=== PATIENT | female | born 1965 | race Caucasian/White ===

== ENCOUNTER → 2016-11-15 | Outpatient (CLI) | payer OTHER ==
[~2016-11-15] MED LIST: AMOX875T PO; ANAS1TAB6 PO; CALC500C70 PO; CHOL1000 PO; EVENCAP6 PO; HRBLS PO; HYDR-5688 PO; LIVER COMPLEX PO; NAPR1TAB9 PO; OXYC1TAB3 PO; PRLSR20 PO; TURKEY TAIL PO; TURM1CAP4 PO; [UNRECOGNIZED DRUG - OTHER] PO; tumeric PO; turkey tail PO
[2016-11-15 15:04] VITALS: BP 140/92; PULSE 78; TEMP 36.8; O2SAT 99
--- NOTE | 2016-11-15 16:17 | Radiation Oncology Follow-Up ---
Radiation Oncology Follow-Up Date of Visit Nov 15, 2016. Reason For Visit Called and requested an appointment today due to increased discomfort of her breast. Radiation Completion Date 09-07-16 Diagnosis (1) Breast cancer Status: Resolved Onset Date: 05/15/2016 Histology Subtype: ductal Stage: l (A) Permanent Comment: Abnormal right breast mammogram Status post ultrasound-guided needle biopsy 05/15/2016 revealing 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, progesterone receptor positive, HER-2/andre negative Status post needle localization lumpectomy and sentinel lymph node biopsy Stage pT1c pN0M0 Status post completion of radiation therapy 09/07/2016 received 5130 cGy utilizing hypo-fractionation. Last Edited By: Lindsay Goodrich on Sep 16, 2016 13:11 History of Present Illness Ms. Ramsey is a 51-year-old female without a family history of breast cancer. He has been followed with screening mammograms. At 2000 she underwent an aspiration of a subareolar nodule at the 10 to 11 o'clock position of the left breast revealing benign breast tissue and fragmented cyst. Specimen # [id number]. On 06/02/2015 she underwent a stereotactic biopsy of the left breast for breast calcifications to rule out fibrocystic changes. This revealed fibrocystic change with usual ductal hyperplasia. Case: [id number]. On 2015 patient underwent bilateral digital screening mammogram. This showed a focal area of possible architectural distortion in the right lateral breast at approximately 9 o'clock position seen until most synthesis images only. Spot compression total synthesis views and possible breast ultrasound were recommended for further evaluation. On 05/09/2016 patient underwent a unilateral right digital diagnostic mammogram and targeted right breast ultrasound. This showed persistent local architectural distortion in the upper outer anterior right breast with an ill-defined hypoechoic 7 mm mass seen in the 9:00 right breast on ultrasound. This was indeterminate but warranted further evaluation with an ultrasound-guided needle biopsy. It was given a BI- RADS Category 4B. On 05/15/2016 the patient underwent an ultrasound-guided biopsy of the right breast lesion. This revealed an infiltrative ductal adenocarcinoma grade 1 with no lymphovascular or perineural invasion. Estrogen receptors were positive, progesterone receptors were positive and HER-2/andre was negative by immunohistochemistry and negative by amplification by FISH. Case: [id number]. Patient was seen by Dr. Liudmila Syed who discussed treatment options with the patient. Bilateral breast MRIs were recommended and performed on 05/28/2016. In the left breast no suspicious masses or iyv-virf-zxps enhancement was seen. In the right breast at the anterior depth at 7 o'clock position was an irregular shaped and spiculated marginated mass measuring 1.0 x 0.7 x 0.9 cm. This corresponded to the biopsy-proven infiltrating ductal carcinoma. No other masslike or cpb-krte-guma enhancement was seen. On 06/27/2016 the patient underwent a right breast partial mastectomy and sentinel node biopsy. The sentinel node was negative for metastatic disease. 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 The tumor measured 1.3 x 1.2 x 1.0 cm. There was evidence of extensive intraductal component. The margins were evaluated. The margins for the invasive carcinoma was negative with the closest margin posterior margin at 4 mm. The margins for the DCIS were also negative with the closest margin being the anterior margin at 1 mm. The final stage was therefore a pT1c pN0(sn-), ER positive, MI positive, HER-2/andre negative. Patient is been seen by Dr. Misha Rodriguez for evaluation of the role of adjuvant therapy. He discussed the role of adjuvant hormonal therapy with the patient. He recommended external beam radiation followed by 5 years of tamoxifen. He did note that the Prosigna assay was unable to be performed. It is for this reason that we were asked to see the patient in referral to discuss with her the role of adjuvant radiation. She completed radiation therapy 09/07/2016. She received 5130 cGy utilizing hypo-fractionation. Interim History She had been seen in follow-up 10/11/2016. She had been doing well. Discomfort of the breast had resolved. 2 days ago she returned from a vacation in [place]. After a long flight she noted some swelling of her breast. She is now noticed increasing discomfort especially in the central portion of the breast and lower part of the breast. The breast feels heavy and firm in the lower quadrants. She has not noticed increased warmth. She's had no fever or chills. She has no swelling of her arm. Due to discomfort she called today and she was asked to come in for an evaluation. She is not tried any over-the- counter medications. Allergies Coded Allergies: Adhesives (Verified Allergy, Mild, Tape blisters, 07/24/16) Codeine (Verified Allergy, Mild, nausea/vomiting, 07/24/16) Home Medications Scheduled [tumeric], 1 CAP PO DAILY [turkey tail], 2 TAB PO DAILY Scheduled PRN Naproxen (Aleve), 220 MG PO Q12 PRN for Pain Review of Systems Gastrointestinal: Symptoms: WNL Oral: Symptoms: No Problems Respiratory: Symptoms: WNL Urinary: Symptoms: WNL Skin: Symptoms: No Problems Breast: Right Upper Arm Measurement: 27.5 Right Mid Arm Measurement: 23.0 Right Wrist Measurement: 15.5 Left Upper Arm Measurement: 27.0 Left Mid Arm Measurement: 22.5 Left Wrist Measurement: 15.5 Arm Dominence: Right Patient Cosmetic Evaluation: Good Staff Cosmetic Evalaluation: Good Physical Exam Vital Signs Date Time Temp Pulse Resp B/P Pulse Ox O2 Delivery O2 Flow Rate FiO2 11/15/16 15:04 36.8 78 18 140/92 99 Pain: Pain Onset: 2 days ago Side: Right Patient Pain Scale: 0 - 10 Initial Pain Intensity: 2.0 Pain Description: Pressure, Tightness General Appearance: no apparent distress Neck: no adenopathy, thyroid normal Respiratory/Chest: lungs clear, no respiratory distress, no accessory muscle use Breast: Breast examination reveals very slight erythema and central portion of the breast. There is edema in the lower quadrants. There is tenderness to palpation. There is no increased warmth. There are no fluctuant masses. There is no axillary adenopathy. There are no skin retractions or nipple changes. She is a nipple ring in place. Cardiovascular: regular rate, rhythm, no gallop, no murmur Abdomen: non tender Extremities: no pedal edema Neurologic/Psychiatric: no motor/sensory deficits, alert, normal mood/affect Skin: warm/dry Lymphatic: no adenopathy Assessment & Plan Plan: I reviewed with her that this is edema of the breast. I've asked her to take Aleve 1 pill twice a day for one week. Once there is improvement in the discomfort I would like for her to follow-up with the lymphedema clinic for evaluation and treatment of the edema in her breast. She can also apply cool compresses. She was in agreement with the above plan of treatment. She will otherwise keep her regularly scheduled appointment. She can call if she has any questions or concerns we would be happy to see her again. Total Time In Follow-Up I spent 15 minutes speaking to the patient and performing examination. I spent 15 minutes reviewing information in completing this note. Copy To Liudmila ySed MD; Balbir Soliz M.D.; Vi Soliz M.D. Problem Qualifiers (1) Breast cancer: Breast location: central portion of breast Patient gender: female Laterality : right Qualified Codes: C50.111 - Malignant neoplasm of central portion of right female breast
== END | disposition home or self-care (01) ==
LOC: C.ONC 14:34
PROVIDERS: ATTEND Radiology Radiation Oncology
DX: Z08 Encounter for follow-up examination after completed treatment for malignant neoplasm (principal); Z92.3 Personal history of irradiation; Z85.3 Personal history of malignant neoplasm of breast

== ENCOUNTER → 2017-01-16 | Outpatient (CLI) | payer OTHER ==
[~2017-01-16] MED LIST changes: -CALC500C70 PO
--- NOTE | 2017-01-16 15:02 | MAMMOGRAPHY REPORT ---
UNILATERAL RIGHT DIGITAL DIAGNOSTIC MAMMOGRAM TOMOSYNTHESIS WITH CAD: 01/16/2017 CLINICAL HISTORY: 51-year-old woman with a personal history of right breast cancer status post lumpe ctomy and radiation. She presents for first follow-up in the right breast after treatment to [facility]. TECHNIQUE: Right CC and MLO 2-D digital and tomosynthesis images, spot magnification right CC and ML views were obtained. Current study was also evaluated with a Computer Aided Detection (CAD) system . COMPARISON: Comparison is made to exams dated: 05/15/2016 mammogram, 05/15/2016 ultrasound biopsy, mammogram, and 05/04/2016 mammogram - [facility]. BREAST COMPOSITION: There are scattered areas of fibroglandular density in the right breast. FINDINGS: There is mild diffuse skin thickening and trabecular edema of the right breast, likely rel ated to recent treatment. There is expected architectural distortion in the 9:00 middle to anterior breast at the site of prior lumpectomy. No new suspicious mass, unexpected architectural distortio n or suspicious macrocalcifications are identified. IMPRESSION: ACR-BI-RADS CATEGORY 3: PROBABLY BENIGN Expected post treatment changes in the right breast, without definite mammographic evidence of malig ricardo. Recommend repeat assessment of the right breast in 6 months. Annual left mammography is als o due at that time. These results and recommendations were discussed with the patient at the time of the examination. Sh e tentatively scheduled a follow-up appointment prior to leaving our department. Approximately 10% of breast cancers are not detected with mammography. A negative mammographic repor t should not delay biopsy if a clinically suggestive mass is present. Codi Valente M.D. ay/:01/16/2017 14:45:11 Trash Collector: Isabela NAVA(R)(M), [facility] letter sent: Personal History 3 BI-RADS Code: ACR-BI-RADS Category 3: Probably Benign
== END | disposition home or self-care (01) ==
LOC: C.MAMM 13:44
PROVIDERS: ATTEND Radiology Radiation Oncology
DX: Z85.3 Personal history of malignant neoplasm of breast (principal); Z08 Encounter for follow-up examination after completed treatment for malignant neoplasm

== ENCOUNTER 2017-03-03 08:46 | Emergency (ER) | payer OTHER ==
[~2017-03-03] VITALS: Ht 167.6 cm; Wt 79.9 kg
[~2017-03-03 08:46] MED LIST changes: -AMOX875T PO; -ANAS1TAB6 PO; -CHOL1000 PO; -EVENCAP6 PO; -HRBLS PO; -HYDR-5688 PO; -LIVER COMPLEX PO; -OXYC1TAB3 PO; -PRLSR20 PO; -TURKEY TAIL PO; -TURM1CAP4 PO; -[UNRECOGNIZED DRUG - OTHER] PO
[2017-03-03 08:47] VITALS: TEMP 37.1; Ht 167.6 cm; Wt 79.9 kg
[2017-03-03] MEDS ORDERED: HRBLS PO (09:25)
[2017-03-03] MEDS ORDERED: TURM1CAP4 PO (09:25)
[2017-03-03] MEDS ORDERED: ANAS1TAB6 PO (09:25)
[2017-03-03] MEDS ORDERED: SODIUM CHLORIDE 0.9% 1000ML 1,000 ML IV STA (09:28)
[2017-03-03] MEDS ORDERED: MoRPHine SULFATE 4 MG/ML 1 ML CARP\\VIAL IV STA ×2 (09:28→10:42)
[2017-03-03] MEDS ORDERED: ONDANSETRON INJ 2 MG/ML 2 ML VIAL IV STA (09:28)
[2017-03-03] MEDS ORDERED: OPTIRAY 320 IV PRN (09:45)
[2017-03-03 09:52] LABS: BASO % 0.3 %; BASO ABS # 0.03 K/uL (0-0.2); COMPLETE YES; EOS % 0.7 %; IG% 0.1 %; LYMPH % 14.9 %; LYMPH ABS # 1.34 K/uL (1.2-3.4); MEAN CELL VOLUME 95.8 fL (80-100); MEAN CORPUSCULAR HEMOGLOBIN 32.4 pg (25-34); MEAN CORPUSCULAR HGB CONC 33.8 g/dl (32-36); MEAN PLATELET VOLUME 10.9 fL (7.4-10.4); MONO % 9.3 %; NEUT % 74.7 %; PLATELET COUNT 270 K/uL (130-400); RED BLOOD COUNT 4.07 M/uL (4.2-5.4)
[2017-03-03 09:53] LABS: URINE APPEARANCE CLEAR (CLEAR); URINE BILIRUBIN NEG (NEG); URINE COLOR YELLOW; URINE NITRITE NEG (NEG); URINE PH 7.5 (4.5-7.5); URINE SPECIFIC GRAVITY 1.007 (1.000-1.030); UROBILINOGEN NEG (NEG); ZZUR CULT IF INDIC CLEAN CATCH NO
[2017-03-03 09:54] LABS: MANUAL MICROSCOPIC REQUIRED? NO; REVIEW REQ? NO
[2017-03-03 09:58] LABS: PREG INTERNAL NEGATIVE QC NEG CLEAR BACKGROUND; PREG INTERNAL POSITIVE QC POS CONTROL LINE
[2017-03-03 10:11] LABS: BUN/CREATININE RATIO 12.3 (10-20); CALCIUM 8.8 mg/dl (8.5-10.1); CREATININE 0.62 mg/dl (0.60-1.20); POTASSIUM 3.8 mmol/L (3.5-5.1)
--- NOTE | 2017-03-03 12:43 | DIAGNOSTIC IMAGING REPORT ---
CT ABD/PELVIS IV AND ORAL CONT CLINICAL HISTORY: Suprapubic abdominal pain, hx diverticulitis COMPARISON STUDY: 07/11/2016 TECHNIQUE: Following the IV administration of 119 mL of Optiray-320, CT scan of the abdomen and pelvis was performed from the lung bases to the proximal femurs. Images are reviewed in the axial, sagittal, and coronal planes. IV contrast was administered without complication. CT DOSE: 586.73 mGy.cm FINDINGS: Lower chest: There are mild dependent atelectatic changes. There is a hiatal hernia Liver: There is mild hepatic steatosis. There are no focal hepatic masses. The portal vein appears patent. Gallbladder: Unremarkable. Spleen: Normal in size and attenuation. Pancreas: Unremarkable. Adrenal glands: Unremarkable. Kidneys: There is symmetric renal cortical enhancement. The kidneys are normal in size without hydronephrosis. Bowel: There are no transition zones indicate bowel obstruction. The appendix appears normal. There is sigmoid wall thickening with infiltration the perisigmoid fat. The findings are indicative of acute diverticulitis. Minor secondary inflammatory changes of the bladder are suspected. Peritoneum: No free air is visualized. There is low volume pelvic ascites. Vasculature: The abdominal aorta is normal in course and caliber. Adenopathy: None. Pelvic viscera: There is dilatation of the lower uterine segment/cervical canal. There is a suspected nabothian gland cyst.. Skeletal structures: No destructive osseous lesions are seen. IMPRESSION: 1. Acute sigmoid diverticulitis 2. Dilatation of the lower uterine segment/cervical canal. 3. Normal appendix 4. No evidence of bowel obstruction. No evidence of free air 5. Small amount of free fluid in the pelvis likely reactive Electronically signed by: Michi Nation M.D. 03/03/2017 12:41 PM Dictated Date/Time: 03/03/2017 12:34 PM
[2017-03-03] MEDS ORDERED: AMOX875T PO (13:06)
[2017-03-03] MEDS ORDERED: OXYC1TAB3 PO (13:06)
--- NOTE | 2017-03-03 13:09 | EMERGENCY ROOM VISIT NOTE ---
History First contact with patient: 08:52 Chief Complaint: GI ASSESSMENT Stated Complaint: DIVERTICULITIS Nursing Triage Summary: Per pt lower abd pain x2 days, nausea. Hx of diverticulitis History of Present Illness The patient is a 51 year old female who presents to the Emergency Room via private vehicle with complaints of "diverticulitis". The patient states that she has a history of diverticulitis with abscess, and is here with similar symptoms. She states that 2 days ago, while performing normal activities she developed inferior quadrant abdominal pain. She notes she did not take anything for the pain, and rates it as a 4/10. She notes that she is menopausal as well. There has been associated chills, but no fevers. She denies any vaginal bleeding but does note a clear scant vaginal discharge. She denies any sexual activity. She denies any chest pain, shortness of breath, a burning when she urinates or blood in the stool or hematuria. Review of Systems A complete 10-point Review of Systems was discussed with the patient, with pertinent positives and negatives listed in the History of Present Illness. All remaining Review of Systems questions can be considered negative unless otherwise specified. Past Medical/Surgical History Medical Problems: (1) blood clot after surgery (2) Breast cancer (3) CARDIAC MURMURS NEC (4) Migraine (5) Radial nerve palsy (6) Shortness of breath Family History Cancer FH: heart disease Hypertension Social History Smoking Status: Never Smoker Alcohol Use: occasionally Drug Use: none Marital Status: in relationship Housing Status: lives with family Occupation Status: employed Current/Historical Medications Scheduled Amoxicillin & Pot Clavulanate (Augmentin 875-125 mg), 1 TAB PO BID Anastrozole (Anastrozole), 1 TAB PO DAILY Herbals (Herbals), 0 PO BID Scheduled PRN Oxycodone Ir (Roxicodone Ir), 1-2 TAB PO Q4H PRN for Pain Miscellaneous Medications Turmeric (Curcuma Longa) (Turmeric), Unknown Dose Allergies Coded Allergies: Adhesives (Verified Allergy, Mild, Tape blisters, 03/03/17) Codeine (Verified Allergy, Mild, nausea/vomiting, 03/03/17) Physical Exam Vital Signs Date Time Temp Pulse Resp B/P Pulse Ox O2 Delivery O2 Flow Rate FiO2 03/03/17 13:30 73 16 136/90 99 Room Air 03/03/17 12:30 73 16 135/95 100 03/03/17 10:55 84 16 124/99 99 03/03/17 08:47 37.1 110 18 145/94 97 Room Air Pain Rating (0-10): 4.0 Physical Exam VITAL SIGNS - Vital signs and nursing notes were reviewed. Patient is afebrile , hypertensive, tachycardic at a rate of 110 bpm, and is saturating well on room air at 97%. GENERAL -51-year-old female appearing her stated age who is in no acute distress. Communicates well with provider and answers questions appropriately. SKIN - Without rashes. No petechial rashes. HEAD - NC/AT. EYES - PERRL with EOMI bilaterally. Sclera anicteric. Palpebral conjunctiva pink and moist with no injection noted. EARS - No deformities of external structures noted on gross examination bilaterally. NOSE - Midline and without cyanosis. No epistaxis or purulent drainage noted. MOUTH/OROPHARYNX - Without perioral cyanosis. LUNGS - Chest wall symmetric without accessory muscle use, intercostals retractions, or central cyanosis. Normal vesicular breath sounds CTA B/L. No wheezes, rales, or rhonchi appreciated. CARDIAC - RRR with S1/S2. No murmur, rubs, or gallops appreciated. ABDOMEN - Abdominal contour without pulsations or visible masses. BS normoactive all four quadrants. There is tenderness in the suprapubic region, and a slight palpable mobile region suspected to be colon. No true palpable masses, hepatosplenomegaly, or ascites noted. EXTREMITIES - No clubbing or peripheral cyanosis. No pretibial edema present. + 5/5 strength noted in UE/LE bilaterally. Medical Decision & Procedures ER Provider Diagnostic Interpretation: CT ABD/PELVIS IV AND ORAL CONT CLINICAL HISTORY: Suprapubic abdominal pain, hx diverticulitis COMPARISON STUDY: 07/11/2016 TECHNIQUE: Following the IV administration of 119 mL of Optiray-320, CT scan of the abdomen and pelvis was performed from the lung bases to the proximal femurs. Images are reviewed in the axial, sagittal, and coronal planes. IV contrast was administered without complication. CT DOSE: 586.73 mGy.cm FINDINGS: Lower chest: There are mild dependent atelectatic changes. There is a hiatal hernia Liver: There is mild hepatic steatosis. There are no focal hepatic masses. The portal vein appears patent. Gallbladder: Unremarkable. Spleen: Normal in size and attenuation. Pancreas: Unremarkable. Adrenal glands: Unremarkable. Kidneys: There is symmetric renal cortical enhancement. The kidneys are normal in size without hydronephrosis. Bowel: There are no transition zones indicate bowel obstruction. The appendix appears normal. There is sigmoid wall thickening with infiltration the perisigmoid fat. The findings are indicative of acute diverticulitis. Minor secondary inflammatory changes of the bladder are suspected. Peritoneum: No free air is visualized. There is low volume pelvic ascites. Vasculature: The abdominal aorta is normal in course and caliber. Adenopathy: None. Pelvic viscera: There is dilatation of the lower uterine segment/cervical canal. There is a suspected nabothian gland cyst.. Skeletal structures: No destructive osseous lesions are seen. IMPRESSION: 1. Acute sigmoid diverticulitis 2. Dilatation of the lower uterine segment/cervical canal. 3. Normal appendix 4. No evidence of bowel obstruction. No evidence of free air 5. Small amount of free fluid in the pelvis likely reactive Laboratory Results 03/03/17 09:40 Red Blood Count 4.07, Mean Corpuscular Volume 95.8, Mean Corpuscular Hemoglobin 32.4, Mean Corpuscular Hemoglobin Concent 33.8, Mean Platelet Volume 10.9, Neutrophils (%) (Auto) 74.7, Lymphocytes (%) (Auto) 14.9, Monocytes (%) (Auto) 9.3, Eosinophils (%) (Auto) 0.7, Basophils (%) (Auto) 0.3, Neutrophils # (Auto) 6.72, Lymphocytes # (Auto) 1.34, Monocytes # (Auto) 0.84, Eosinophils # (Auto) 0.06, Basophils # (Auto) 0.03 03/03/17 09:40 Test 03/03/17 09:08 03/03/17 09:40 Urine Color YELLOW Urine Appearance CLEAR (CLEAR) Urine pH 7.5 (4.5-7.5) Urine Specific [place] 1.007 (1.000-1.030) Urine Protein NEG (NEG) Urine Glucose (UA) NEG (NEG) Urine Ketones NEG (NEG) Urine Occult Blood NEG (NEG) Urine Nitrite NEG (NEG) Urine Bilirubin NEG (NEG) Urine Urobilinogen NEG (NEG) Urine Leukocyte Esterase NEG (NEG) Urine Test NEG (NEG) White Blood Count 9.00 K/uL (4.8-10.8) Red Blood Count 4.07 M/uL (4.2-5.4) Hemoglobin 13.2 g/dL (12.0-16.0) Hematocrit 39.0 % (37-47) Mean Corpuscular Volume 95.8 fL (80-100) Mean Corpuscular Hemoglobin 32.4 pg (25-34) Mean Corpuscular Hemoglobin Concent 33.8 g/dl (32-36) Platelet Count 270 K/uL (130-400) Mean Platelet Volume 10.9 fL (7.4-10.4) Neutrophils (%) (Auto) 74.7 % Lymphocytes (%) (Auto) 14.9 % Monocytes (%) (Auto) 9.3 % Eosinophils (%) (Auto) 0.7 % Basophils (%) (Auto) 0.3 % Neutrophils # (Auto) 6.72 K/uL (1.4-6.5) Lymphocytes # (Auto) 1.34 K/uL (1.2-3.4) Monocytes # (Auto) 0.84 K/uL (0.11-0.59) Eosinophils # (Auto) 0.06 K/uL (0-0.5) Basophils # (Auto) 0.03 K/uL (0-0.2) RDW Standard Deviation 47.5 fL (36.4-46.3) RDW Coefficient of Variation 13.6 % (11.5-14.5) Immature Granulocyte % (Auto) 0.1 % Immature Granulocyte # (Auto) 0.01 K/uL (0.00-0.02) Anion Gap 8.0 mmol/L (3-11) Est Creatinine Clear Calc Drug Dose 111.8 ml/min Estimated GFR () 119.3 Estimated GFR (Non- 102.9 BUN/Creatinine Ratio 12.3 (10-20) Calcium Level 8.8 mg/dl (8.5-10.1) Total Bilirubin 0.5 mg/dl (0.2-1) Aspartate Amino Transf (AST/SGOT) 12 U/L (15-37) Alanine Aminotransferase (ALT/SGPT) 20 U/L (12-78) Alkaline Phosphatase 73 U/L (45-117) Total Protein 6.8 gm/dl (6.4-8.2) Albumin 3.4 gm/dl (3.4-5.0) Globulin 3.4 gm/dl (2.5-4.0) Albumin/Globulin Ratio 1.0 (0.9-2) Medications Administered Medications (Trade) Dose Ordered Sig/Mika Route Start Time Stop Time Status Last Admin Dose Admin Sodium Chloride (Nss 1000ml) 1,000 ml @ 999 mls/hr Q1H1M STAT IV 03/03/17 09:28 03/03/17 10:28 DC 03/03/17 09:42 999 MLS/HR Morphine Sulfate (MoRPHine SULFATE INJ) 4 mg NOW STAT IV 03/03/17 09:28 03/03/17 09:30 DC 03/03/17 09:43 4 MG Ondansetron HCl (Zofran Inj) 4 mg NOW STAT IV 03/03/17 09:28 03/03/17 09:31 DC 03/03/17 09:43 4 MG Morphine Sulfate (MoRPHine SULFATE INJ) 4 mg NOW STAT IV 03/03/17 10:42 03/03/17 10:43 DC 03/03/17 10:55 4 MG Medical Decision Patient was seen and evaluated as above. After obtaining a thorough history and physical examination IV access was initiated and the above workup was performed. Patient presents with a history of diverticulitis with abscess, of which she has been previously admitted for. I did initially offer her treatment with antibiotics without imaging, to save her radiation as she presents with symptoms similar to previous. I informed her that I would review her previous CAT scan and help with the final decision. Because the previous CAT scan did reveal a large abscess secondary to diverticulitis, I informed her that at this time if there is another abscess and it is not treated appropriately or identified quickly that improvement with simple oral antibiotics may not be warranted. After benefit versus risk discussion, it was identified to obtain a CT scan of the abdomen and pelvis with IV and oral contrast. The patient also had questions regarding the IV, noting that she was quite anxious as previously she had an IV in place for 4 days causing permanent scarring and trouble with subsequent blood draws. I informed her that we would do a burning in our power to help eliminate this, and it is unlikely that she will have to have an IV for a prolonged period of time. She did request pain medication was given morphine, Zofran and saline. Her blood work reveals no leukocytosis, slight anemia with red blood cell count of 4.07. Hemoglobin is within normal limits. CMP reveals normal electrolytes, kidney function. AST slightly low at 12, no other abnormalities noted. Urine is completely unremarkable. Urine test is negative. CT scan results as above. These are consistent with acute diverticulitis. Incidental were discussed with the patient. I did offer her pelvic exam, but this time she was slightly declined, noting that she would follow-up regarding today's findings. I do believe that this is appropriate. The case was discussed with my attending, and the benefits versus risk of utilizing Cipro/Flagyl versus Augmentin was discussed. Because of the side effects of Cipro, I did elect to provide the patient with Augmentin for 10 days. I do believe that this is appropriate this time. The patient had a prescription sent to her pharmacy. She was instructed to return for any worsening of her symptoms, and follow-up with her family doctor as soon as possible for recheck of her current condition. She was educated upon worrisome symptoms in which to return, had questions answered prior to discharge and was discharged home in good condition. There is no abnormality with a location of the IV at this time. She was also given a short- term prescription for OxyIR. Prior to discharge she was given the reports of the CAT scan as per radiology read as well as her laboratory results. This was as per her request. She was then discharged home in good condition. In the evaluation and treatment of the patient the following differential diagnoses were entertained: Acute diverticulitis, cystitis, ovarian cyst, tumor , peritonitis, among others. [place] Drug Monitoring Program Search Results: patient reviewed within database, no issues identified Impression Primary Impression: Diverticulitis Additional Impression: Nabothian cyst Departure Information Dispostion Home / Self-Care Condition GOOD Prescriptions Oxycodone Ir (Roxicodone Ir) 5 Mg Tab 1-2 TAB PO Q4H Y for Pain, #15 TAB For Initial Treatment Prov: Jordy Mac PA-C 03/03/17 Amoxicillin & Pot Clavulanate (Augmentin 875-125 mg) 1 Tab Tab 1 TAB PO BID for 10 Days, #20 TAB Prov: Jordy Mac PA-C 03/03/17 Referrals Vi Soliz M.D. (PCP) Patient Instructions ED Diverticulitis, [facility] Additional Instructions You have been treated in the Emergency Department your Abdominal Pain. Laboratory results and imaging studies have indicated acute diverticulitis. You have been prescribed Oxy IR to be used for pain control. This is a narcotic medication. You cannot drive or consume alcohol while on this medicine. This medicine should only be used for pain that cannot be controlled with over-the- counter pain medicines. Please consume a clear liquid diet for the next 3-5 days. Please slowly progressed or food. Please drink plenty of water. It is recommended you take a stool softener [id number] with the pain medication as it can constipate you. It is recommended you call your family doctor first thing tomorrow morning to schedule follow-up. For your acute diverticulitis you've been prescribed Augmentin. This is one tablet twice daily for 10 days. As we discussed there is a small Bartholin's cyst in the vaginal region. It is recommended that you follow-up with her family doctor or EDUCATION CONSULTANT regarding this as we discussed. For pain control, you can use the following [id number] medicines (if >12 yo): - Regular strength (325mg/tab) Tylenol (acetaminophen) 2 tabs every 4-6 hours as needed. Do not exceed 12 tablets in a 24 hour period. Avoid taking more than 3 grams (000 mg) of Tylenol per day. This includes any other sources of acetaminophen you may take on a regular basis. - Regular strength (200 mg/tab) Advil (ibuprofen) 1-2 tabs every 4-6 hours as needed. Do not exceed a dose of 3200 mg per day. Drink plenty of water and stay well hydrated. As with any trip to the Emergency Department, you should follow-up with your Primary Care Provider from today's visit. Return to the emergency department if your symptoms persist despite treatment plan outlined above or if the following symptoms occur: increased fevers, chills , worsening nausea/vomiting, blood in your stool or urine. Please return to the emergency department with any new/concerning symptoms. Problem Qualifiers
[2017-03-03 13:30] VITALS: BP 136/90; PULSE 73; O2SAT 99
[2017-04-16] MEDS ORDERED: CHOL1000 PO (14:09)
[2017-04-16] MEDS ORDERED: PRLSR20 PO (14:09)
[2017-05-28] MEDS ORDERED: TURKEY TAIL PO (08:34)
[2017-05-28] MEDS ORDERED: LIVER COMPLEX PO (08:34)
[2017-05-28] MEDS ORDERED: EVENCAP6 PO (08:34)
[2017-05-28] MEDS ORDERED: [UNRECOGNIZED DRUG - OTHER] PO (08:34)
== END 2017-03-03 13:47 | disposition home or self-care (01) ==
LOC: C.EDB 08:47 → C.EDA 13:47
DX: K57.92 Diverticulitis of intestine, part unspecified, without perforation or abscess without bleeding (principal); N88.8 Other specified noninflammatory disorders of cervix uteri; R01.1 Cardiac murmur, unspecified; G43.909 Migraine, unspecified, not intractable, without status migrainosus; G56.30 Lesion of radial nerve, unspecified upper limb; R00.0 Tachycardia, unspecified; K57.32 Diverticulitis of large intestine without perforation or abscess without bleeding; Z82.49 Family history of ischemic heart disease and other diseases of the circulatory system; Z86.718 Personal history of other venous thrombosis and embolism; Z85.3 Personal history of malignant neoplasm of breast

== ENCOUNTER → 2017-04-16 | Outpatient (CLI) | payer OTHER ==
[~2017-04-16] MED LIST changes: +ANAS1TAB6 PO; +CHOL1000 PO; +EVENCAP6 PO; +HRBLS PO; +HYDR-5688 PO; +LIVER COMPLEX PO; -NAPR1TAB9 PO; +OXYC1TAB3 PO; +PRLSR20 PO; +TURKEY TAIL PO; +TURM1CAP4 PO; +[UNRECOGNIZED DRUG - OTHER] PO; -tumeric PO; -turkey tail PO
[2017-04-16 13:56] VITALS: BP 109/78; PULSE 74; TEMP 37; O2SAT 98
--- NOTE | 2017-04-16 15:01 | Radiation Oncology Follow-Up ---
Radiation Oncology Follow-Up Date of Visit Apr 16, 2017. Reason For Visit 6 month follow-up Radiation Completion Date finished 09-07-2016 Diagnosis (1) Breast cancer Status: Resolved Onset Date: 05/15/2016 Histology Subtype: ductal Stage: l (A) Permanent Comment: Abnormal right breast mammogram Status post ultrasound-guided needle biopsy 05/15/2016 revealing 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, progesterone receptor positive, HER-2/andre negative Status post needle localization lumpectomy and sentinel lymph node biopsy Stage pT1c pN0M0 Status post completion of radiation therapy 09/07/2016 received 5130 cGy utilizing hypo-fractionation. Last Edited By: Lindsay Goodrich on Sep 16, 2016 13:11 History of Present Illness Ms. Rodriguez is a 51-year-old female without a family history of breast cancer. He has been followed with screening mammograms. At 2000 she underwent an aspiration of a subareolar nodule at the 10 to 11 o'clock position of the left breast revealing benign breast tissue and fragmented cyst. Specimen # [id number]. On 06/02/2015 she underwent a stereotactic biopsy of the left breast for breast calcifications to rule out fibrocystic changes. This revealed fibrocystic change with usual ductal hyperplasia. Case: [id number]. On 2015 patient underwent bilateral digital screening mammogram. This showed a focal area of possible architectural distortion in the right lateral breast at approximately 9 o'clock position seen until most synthesis images only. Spot compression total synthesis views and possible breast ultrasound were recommended for further evaluation. On 05/09/2016 patient underwent a unilateral right digital diagnostic mammogram and targeted right breast ultrasound. This showed persistent local architectural distortion in the upper outer anterior right breast with an ill-defined hypoechoic 7 mm mass seen in the 9:00 right breast on ultrasound. This was indeterminate but warranted further evaluation with an ultrasound-guided needle biopsy. It was given a BI- RADS Category 4B. On 05/15/2016 the patient underwent an ultrasound-guided biopsy of the right breast lesion. This revealed an infiltrative ductal adenocarcinoma grade 1 with no lymphovascular or perineural invasion. Estrogen receptors were positive, progesterone receptors were positive and HER-2/andre was negative by immunohistochemistry and negative by amplification by FISH. Case: [id number]. Patient was seen by Dr. Liudmila Syed who discussed treatment options with the patient. Bilateral breast MRIs were recommended and performed on 05/28/2016. In the left breast no suspicious masses or kqu-vpoi-osvd enhancement was seen. In the right breast at the anterior depth at 7 o'clock position was an irregular shaped and spiculated marginated mass measuring 1.0 x 0.7 x 0.9 cm. This corresponded to the biopsy-proven infiltrating ductal carcinoma. No other masslike or [id number]-okbu-[id number] enhancement was seen. On 06/27/2016 the patient underwent a right breast partial mastectomy and sentinel node biopsy. The sentinel node was negative for metastatic disease. 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 The tumor measured 1.3 x 1.2 x 1.0 cm. There was evidence of extensive intraductal component. The margins were evaluated. The margins for the invasive carcinoma was negative with the closest margin posterior margin at 4 mm. The margins for the DCIS were also negative with the closest margin being the anterior margin at 1 mm. The final stage was therefore a pT1c pN0(sn-), ER positive, SC positive, HER-2/andre negative. Patient is been seen by Dr. Misha Rodriguez for evaluation of the role of adjuvant therapy. He discussed the role of adjuvant hormonal therapy with the patient. He recommended external beam radiation followed by 5 years of tamoxifen. He did note that the Prosigna assay was unable to be performed. It is for this reason that we were asked to see the patient in referral to discuss with her the role of adjuvant radiation. She completed radiation therapy 09/07/2016. She received 5130 cGy utilizing hypo-fractionation. Interim History She has occasional mild discomfort of the breast. At her last visit we had discussed treatment for lymphedema. She was referred to the lymphedema clinic. She had other health issues and was not able to follow through with undergoing lymphedema therapy for the breast. She was hospitalized for acute diverticulitis. This occurred again and she was on antibiotics for 10 days. She also the third episode. She is followed by Dr. Eduardo and it is planned that she'll be undergoing a resection to prevent the recurrences of diverticulitis. She feels that the heaviness of the breast has steadily improved over time. She is up-to-date on mammography. The right breast was imaged on 01/16/2017. She is scheduled for follow-up in June. She is on anastrozole and denies side effects. Allergies Coded Allergies: Adhesives (Verified Allergy, Mild, Tape blisters, 03/03/17) Codeine (Verified Allergy, Mild, nausea/vomiting, 03/03/17) Home Medications Scheduled Anastrozole (Anastrozole), 1 TAB PO DAILY Cholecalciferol (Vitamin D3), 1 APPL PO DAILY Herbals (Herbals), 0 PO BID Omeprazole (Prilosec), 20 MG PO DAILY Turmeric (Curcuma Longa) (Turmeric), 1 TAB PO DAILY Scheduled PRN Oxycodone Ir (Roxicodone Ir), 1-2 TAB PO Q4H PRN for Pain Review of Systems Gastrointestinal: GI Comments: loose stools several times a day Oral: Symptoms: No Problems Respiratory: Symptoms: SOB With Exertion Urinary: Symptoms: WNL Skin: Other Skin Symptoms: "rough skin on skin , angel on face " Breast: Right Upper Arm Measurement: 27.8 Right Mid Arm Measurement: 24.0 Right Wrist Measurement: 15.5 Left Upper Arm Measurement: 27.5 Left Mid Arm Measurement: 22.0 Left Wrist Measurement: 15.5 Arm Dominence: Right Patient Cosmetic Evaluation: Good Staff Cosmetic Evalaluation: Good Physical Exam Vital Signs Date Time Temp Pulse Resp B/P (MAP) Pulse Ox O2 Delivery O2 Flow Rate FiO2 04/16/17 13:56 37.0 74 18 109/78 98 Pain: Side: Bilateral Patient Pain Scale: 0 - 10 Initial Pain Intensity: 0.0 Fatigue: None General Appearance: no apparent distress Eyes: normal inspection, EOMI ENT: normal ENT inspection, hearing grossly normal Neck: no adenopathy, thyroid normal Respiratory/Chest: lungs clear, no respiratory distress, no accessory muscle use Breast: Breast examination on the right reveals resolving hyperpigmentation. There is also resolving edema in the lower quadrants of the breast. Well-healed incisions. There are no masses or tenderness and no axillary adenopathy. Using the [place] score cosmesis she has a fair outcome. Examination of the left breast showed no masses or tenderness and no axillary adenopathy. Cardiovascular: regular rate, rhythm, no gallop, no murmur Abdomen: non tender, soft, no organomegaly Extremities: no pedal edema Neurologic/Psychiatric: no motor/sensory deficits, alert, normal mood/affect Skin: warm/dry Lymphatic: no adenopathy Laboratory Studies Test 03/03/17 09:08 03/03/17 09:40 Urine Color YELLOW Urine Appearance CLEAR (CLEAR) Urine pH 7.5 (4.5-7.5) Urine Specific [place] 1.007 (1.000-1.030) Urine Protein NEG (NEG) Urine Glucose (UA) NEG (NEG) Urine Ketones NEG (NEG) Urine Occult Blood NEG (NEG) Urine Nitrite NEG (NEG) Urine Bilirubin NEG (NEG) Urine Urobilinogen NEG (NEG) Urine Leukocyte Esterase NEG (NEG) Urine Test NEG (NEG) White Blood Count 9.00 K/uL (4.8-10.8) Red Blood Count 4.07 M/uL (4.2-5.4) Hemoglobin 13.2 g/dL (12.0-16.0) Hematocrit 39.0 % (37-47) Mean Corpuscular Volume 95.8 fL (80-100) Mean Corpuscular Hemoglobin 32.4 pg (25-34) Mean Corpuscular Hemoglobin Concent 33.8 g/dl (32-36) Platelet Count 270 K/uL (130-400) Mean Platelet Volume 10.9 fL (7.4-10.4) Neutrophils (%) (Auto) 74.7 % Lymphocytes (%) (Auto) 14.9 % Monocytes (%) (Auto) 9.3 % Eosinophils (%) (Auto) 0.7 % Basophils (%) (Auto) 0.3 % Neutrophils # (Auto) 6.72 K/uL (1.4-6.5) Lymphocytes # (Auto) 1.34 K/uL (1.2-3.4) Monocytes # (Auto) 0.84 K/uL (0.11-0.59) Eosinophils # (Auto) 0.06 K/uL (0-0.5) Basophils # (Auto) 0.03 K/uL (0-0.2) RDW Standard Deviation 47.5 fL (36.4-46.3) RDW Coefficient of Variation 13.6 % (11.5-14.5) Immature Granulocyte % (Auto) 0.1 % Immature Granulocyte # (Auto) 0.01 K/uL (0.00-0.02) Sodium Level 138 mmol/L (136-145) Potassium Level 3.8 mmol/L (3.5-5.1) Chloride Level 106 mmol/L (98-107) Carbon Dioxide Level 24 mmol/L (21-32) Anion Gap 8.0 mmol/L (3-11) Blood Urea Nitrogen 8 mg/dl (7-18) Creatinine 0.62 mg/dl (0.60-1.20) Est Creatinine Clear Calc Drug Dose 111.8 ml/min Estimated GFR () 119.3 Estimated GFR (Non- 102.9 BUN/Creatinine Ratio 12.3 (10-20) Random Glucose 91 mg/dl (70-99) Calcium Level 8.8 mg/dl (8.5-10.1) Total Bilirubin 0.5 mg/dl (0.2-1) Aspartate Amino Transferase (AST) 12 U/L (15-37) Alanine Aminotransferase (ALT) 20 U/L (12-78) Alkaline Phosphatase 73 U/L (45-117) Total Protein 6.8 gm/dl (6.4-8.2) Albumin 3.4 gm/dl (3.4-5.0) Globulin 3.4 gm/dl (2.5-4.0) Albumin/Globulin Ratio 1.0 (0.9-2) Additional Studies Patient: DOUG RODRIGUEZ [facility] Rec: [id number] Address1: [address] [place] [address] Address2: [place] [address] Acct ID: [id number] Date: 1965 Sex: F Ref Phy: Lindsay Goodrich PA-C Att Phy: Lindsay Goodrich PA-C Leslie Phy: Vi Soliz M.D. Inter Phy: Codi Valente MD [facility] Zip: [place] [address] SC: C.MAMM Report #: [id number] Hatchery Attendant: MAYRA Diagnosis: RT BREAST CA 3 MO F/U RADIATION Service Date: 01/16/17 MNE: [id number] Ordering Dr: Lindsay Goodrich PA-C CC: Lindsay Goodrich PA-C CONF: DICTATED BY: Codi Valente MD MAMMOGRAPHY REPORT UNILATERAL RIGHT DIGITAL DIAGNOSTIC MAMMOGRAM TOMOSYNTHESIS WITH CAD: 01/16/2017 CLINICAL HISTORY: 51-year-old woman with a personal history of right breast cancer status post lumpectomy and radiation. She presents for first follow-up in the right breast after treatment to establish new baseline. TECHNIQUE: Right CC and MLO 2-D digital and tomosynthesis images, spot magnification right CC and ML views were obtained. Current study was also evaluated with a Computer Aided Detection (CAD) system. COMPARISON: Comparison is made to exams dated: 05/15/2016 mammogram, 05/15/2016 ultrasound biopsy, 05/09/2016 mammogram, and 05/04/2016 mammogram - [facility]. BREAST COMPOSITION: There are scattered areas of fibroglandular density in the right breast. FINDINGS: There is mild diffuse skin thickening and trabecular edema of the right breast, likely related to recent treatment. There is expected architectural distortion in the 9:00 middle to anterior breast at the site of prior lumpectomy. No new suspicious mass, unexpected architectural distortion or suspicious macrocalcifications are identified. IMPRESSION: ACR-BI-RADS CATEGORY 3: PROBABLY BENIGN Expected post treatment changes in the right breast, without definite mammographic evidence of malignancy. Recommend repeat assessment of the right breast in 6 months. Annual left mammography is also due at that time. These results and recommendations were discussed with the patient at the time of the examination. She tentatively scheduled a follow-up appointment prior to leaving our department. Approximately 10% of breast cancers are not detected with mammography. A negative mammographic report should not delay biopsy if a clinically suggestive mass is present. Codi Valente M.D. ay/:01/16/2017 14:45:11 Software Developer: Isabela NAVA(Fatoumata)(M), [facility] letter sent: Personal History 3 BI-RADS Code: ACR-BI-RADS Category 3: Probably Benign Dictated by: Codi Valente MD Signed by: Codi Valente MD Assessment & Plan Plan: Continue with scheduled mammography. Her appointments were reviewed and she has been scheduled for bilateral digital mammography 07/19/2017. Continue regular follow-up with medical oncology, her breast surgeon, and primary care physician. She'll continue on anastrozole. She'll be following up with Dr. Eduarod and will be undergoing a bowel resection for the diverticulitis. We asked her to return to our office in 1 year. She may cause she has any questions or concerns in the interim. Total Time In Follow-Up I spent 20 minutes speaking to the patient and performing examination. I spent 15 minutes reviewing information and completing this note. Copy To Michael Eduardo M.D.; Liudmila Syed MD; Balbir Soliz M.D.; Vi Soliz M.D. Problem Qualifiers (1) Breast cancer: Breast location: central portion of breast Estrogen receptor status: positive Patient sex: female Laterality: right Qualified Codes: C50.111 - Malignant neoplasm of central portion of right female breast; Z17.0 - Estrogen receptor positive status [ER+]
== END | disposition home or self-care (01) ==
LOC: C.ONC 13:42
PROVIDERS: ATTEND Physician Assistant Medical
DX: Z08 Encounter for follow-up examination after completed treatment for malignant neoplasm (principal); Z92.3 Personal history of irradiation; Z85.3 Personal history of malignant neoplasm of breast

== ENCOUNTER 2017-06-10 05:18 | Inpatient (IN) | payer OTHER ==
[2017-05-28 08:12] VITALS: BMI 28.0
--- NOTE | 2017-05-28 09:01 | PAT Medication Instructions ---
Service Date May 28, 2017. Current Home Medication List Anastrozole (Anastrozole), 1 TAB PO QAM Cholecalciferol (Vitamin D3), 1 APPL PO QAM Evening [place] Oil (Evening [place] Oil), 1 CAP PO QAM Omeprazole (Prilosec), 20 MG PO QAM Turmeric (Curcuma Longa) (Turmeric), 1 TAB PO QAM [Liver Complex], 1,000 MG PO QAM [[place] Tail], 1 CAP PO QAM [Vitamin B Stress], 1 TAB PO QAM Medication Instructions For Your Scheduled Surgery - Check with prescribing physician for instructions: Anastrozole (Anastrozole), 1 TAB PO QAM - Hold the following medications starting 05/29/17: Turmeric (Curcuma Longa) (Turmeric), 1 TAB PO QAM [Liver Complex], 1,000 MG PO QAM [[place] Tail], 1 CAP PO QAM Evening [place] Oil (Evening [place] Oil), 1 CAP PO QAM - Hold the following medications the morning of surgery: [Vitamin B Stress], 1 TAB PO QAM Cholecalciferol (Vitamin D3), 1 APPL PO QAM - Take the following medications the morning of surgery with a sip of water: Omeprazole (Prilosec), 20 MG PO QAM If you have any questions please call us at [phone] or [phone] or [phone]
[2017-06-10] VITALS (9 sets, daily range): BP systolic 118–142; BP diastolic 81–95; PULSE 77–110; TEMP 36.4–37; O2SAT 96–99; Ht 167.6 cm; Wt 80.4 kg
[~2017-06-10] VITALS: Ht 167.6 cm; Wt 80.4 kg
[~2017-06-10 05:18] MED LIST changes: -HRBLS PO; -HYDR-5688 PO; -OXYC1TAB3 PO
[2017-06-10] MEDS ORDERED: SODIUM CHLORIDE 0.9% 1000ML 1,000 ML IV SCH (06:00)
[2017-06-10] MEDS ORDERED: HEPARIN SOD 5000 UNIT/0.5 ML CARP SQ SCH (06:00)
[2017-06-10] MEDS ORDERED: CEFOXITIN IV 2,000 MG in DEXTROSE 5% 50ML 50 ML IV SCH (06:00)
[2017-06-10] MEDS ORDERED: LACTATED RINGER'S 1000ML 1,000 ML IV SCH (06:00)
[2017-06-10] MEDS ORDERED: BUPIVACAINE 0.5 % 5 MG/1 ML MPF 30ML VIAL ONE (06:44)
[2017-06-10] MEDS ORDERED: FENTANYL CITRATE INJ 50 MCG/1 ML 2 ML VIAL ONE ×3 (06:49→09:34)
[2017-06-10] MEDS ORDERED: MIDAZOLAM HCL 1 MG/ML 2ML VIAL ONE (06:49)
[2017-06-10] MEDS ORDERED: ACETAMINOPHEN 1000 MG/100 ML IV IV ONE (06:54)
--- NOTE | 2017-06-10 06:54 | History & Physical Bridge Note ---
H&P Re-Evaluation Bridge Note: I have examined the patient, reviewed the History & Physical and in the interval since the performance of the History & Physical I have noted the following changes of clinical significance: No changes noted
[2017-06-10] MEDS ORDERED: SCOPOLAMINE 1.5 MG TDSY TD ONE (07:13)
[2017-06-10] MEDS ORDERED: HYDROmorphone INJ 2 MG/ML SYR/VIAL ONE ×2 (07:25→08:43)
[2017-06-10] MEDS ORDERED: HYDROmorphone INJ 2 MG/ML SYR/VIAL IV PRN (07:45)
[2017-06-10] MEDS ORDERED: ATROPINE SULFATE 0.1 MG/ML 5ML SYR IV PRN (07:45)
[2017-06-10] MEDS ORDERED: MEPERIDINE HCL 25 MG/ML CARP IV PRN (07:45)
[2017-06-10] MEDS ORDERED: NALOXONE HCL 0.4 MG/1 ML VIAL/CARP IV PRN ×2 (07:45→11:00)
[2017-06-10] MEDS ORDERED: ONDANSETRON INJ 2 MG/ML 2 ML VIAL IV PRN ×2 (07:45→11:00)
[2017-06-10] MEDS ORDERED: FENTANYL CITRATE INJ 50 MCG/1 ML 2 ML VIAL IV PRN (07:45)
[2017-06-10] MEDS ORDERED: FLUMAZENIL 0.1 MG/1 ML 10 ML VIAL IV PRN (07:45)
[2017-06-10] MEDS ORDERED: LABETALOL HCL IV 5 MG/ML 20ML IV PRN (07:45)
[2017-06-10] MEDS ORDERED: PHENYLEPHRINE 100MCG/ML 5ML SYR IV PRN (07:45)
[2017-06-10] MEDS ORDERED: EpHEDrine SULFATE INJ 50 MG/ML AMP IV PRN (07:45)
[2017-06-10] MEDS ORDERED: PROPOFOL IV EMULSION 10 MG/ML 20 ML VIAL IV ONE (07:50)
[2017-06-10] MEDS ORDERED: DEXAMETHASONE SOD INJ 4 MG/ML VIAL ONE (07:50)
[2017-06-10] MEDS ORDERED: ROCURONIUM BROMIDE 10 MG/ML 5 ML VIAL ONE ×2 (07:50→09:34)
[2017-06-10] MEDS ORDERED: LIDOCAINE HCL 2% 2 ML VIAL (20MG/ML) ONE (07:50)
[2017-06-10] MEDS ORDERED: GLYCOPYRROLATE INJ 0.2 MG/ML VIAL ONE (07:50)
[2017-06-10] MEDS ORDERED: NEOSTIGMINE METHYLSULFATE 5 MG/5 ML SYR ONE (07:50)
[2017-06-10] MEDS ORDERED: ONDANSETRON INJ 2 MG/ML 2 ML VIAL ONE (07:50)
[2017-06-10] MEDS ORDERED: EpHEDrine SULFATE INJ 50 MG/ML AMP ONE (07:50)
[2017-06-10] MEDS: SODIUM CHLORIDE 0.9% 1000ML 1,000 ML IV SCH (10:55)
--- NOTE | 2017-06-10 10:55 | [facility] Post Operative Brief Note ---
Immediate Operative Summary Operative Date Jun 10, 2017. Pre-Operative Diagnosis Diverticulitis of colon Post-Operative Diagnosis same as pre-operative Procedure(s) Performed Laparoscopic Assisted Sigmoid Colectomy Surgeon Dr. Michael Eduardo Criminal Records Technician Surgeon(s) Cathy Alfonso PA-C Estimated Blood Loss 400ml Findings See dictation Specimens A: Sigmoid Colon Drains None Anesthesia General Complication(s) None Disposition Recovery Room / PACU
[2017-06-10] MEDS ORDERED: HYDROmorphone HCL 0.5MG/ML 50 ML CASSETTE ONE (11:38)
--- NOTE | 2017-06-10 11:42 | Anesthesiology Progress Note ---
Anesthesia Post Op Note Date & Time Jun 10, 2017 at 11:41 Vital Signs Pain Intensity: 0 Vital Signs Past 12 Hours Date Time Temp Pulse Resp B/P (MAP) Pulse Ox O2 Delivery O2 Flow Rate FiO2 06/10/17 11:02 37.2 20 140/104 100 Mask 10 06/10/17 06:04 99 Room Air 06/10/17 05:41 37 77 16 142/95 (111) 99 Room Air Notes Mental Status: alert / awake / arousable, participated in evaluation Pt Amnestic to Procedure: Yes Nausea / Vomiting: adequately controlled Pain: adequately controlled Airway Patency, RR, SpO2: stable & adequate BP & HR: stable & adequate Hydration State: stable & adequate Anesthetic Complications: no major complications apparent
--- NOTE | 2017-06-10 13:30 | [facility] Post Operative Brief Note ---
Immediate Operative Summary Operative Date Jun 10, 2017. Pre-Operative Diagnosis Diverticulitis of colon Post-Operative Diagnosis same as pre-operative Procedure(s) Performed Laparoscopic Assisted Sigmoid Colectomy Surgeon Dr. Michael Eduardo Gut Snatcher Surgeon(s) Cathy Alfonso PA-C Estimated Blood Loss 400ml Findings See dictation Specimens A: Sigmoid Colon Drains One J-P across chest wall Anesthesia general Complication(s) None Disposition Recovery Room / PACU
[2017-06-10] MEDS: ALUMINUM/MAGNESIUM SUSP 30 ML UDC NG SCH ×3 (14:19→21:26)
[2017-06-10] MEDS: NSS + 20MEQ KCL 1000ML 1,000 ML IV SCH ×2 (14:19→21:27)
[2017-06-10] MEDS: CEFOXITIN IV 2,000 MG in DEXTROSE 5% 50ML 50 ML IV SCH ×2 (14:29→21:36)
[2017-06-10] MEDS: HYDROmorphone HCL 0.5MG/ML 50 ML CASSETTE IV PRN ×2 (14:55→23:10)
--- NOTE | 2017-06-10 20:10 | OPERATIVE REPORT ---
DATE OF OPERATION: 06/10/2017 PREOPERATIVE DIAGNOSIS: History of recurrent diverticulitis. POSTOPERATIVE DIAGNOSIS: Same. PROCEDURE: Laparoscopic assisted sigmoid colectomy with end-to-end anastomosis. Mobilization of the splenic flexure. SURGEON: Dr. Eduardo. PEST CONTROL CHEMICAL TECHNICIAN: Cathy Alfonso PA-C. FINDINGS: The patient had a significantly redundant sigmoid colon, had multiple diverticula. She had had a previous abscess, but that cavity was not encountered. There was no evidence of acute inflammation at the present time. There was very little thickening of the sigmoid wall. The anastomosis was performed at a level that was felt to be rectum as there were no tenia seen there. There were no diverticula seen in the proximal portion. The donuts after the EEA was fired were intact. The remainder of the colon appeared normal. The stomach appeared normal. The spleen was normal size. The liver was of normal size and contour and the visible small bowel was normal. The NG was felt to be in good position within the gastric lumen. TECHNIQUE: The patient was given a general anesthetic and the area was prepped and draped in the usual sterile fashion. A small vertical incision was made below the umbilicus, carried down through the subcutaneous tissue to the fascia which was grasped with 2 Tre clamps and incised between. The peritoneum was identified, incised, and the introducer was placed bluntly. The abdomen was then insufflated to a pressure of 15 mmHg with carbon dioxide. The two 5 mm introducers on the right side were then placed under direct vision through small skin incisions. Traction was placed medially on the left colon and the line of Toldt was divided, working from the descending sigmoid junction proximally up towards the splenic flexure. I then worked around the splenic flexure. I then elevated the omentum and established a plane between the omentum and the distal transverse colon, working from right to left until I was able then to further mobilize the splenic flexure from medial to lateral direction, meeting the dissection that had been performed along the lateral aspect of the descending colon. That allowed for good mobilization of the splenic flexure. I then worked further along the line of Toldt along the sigmoid colon and mobilized the descending colon. There was felt to be a good amount of colon to perform an anastomosis without tension and the laparoscopic portion was completed. Vertical midline incision was continued from the midline below the umbilicus inferiorly, carried down through the subcutaneous tissue. The fascia was opened in the midline. The peritoneum was opened and all those layers were opened along the length of the skin incision. The sigmoid colon was easily elevated out of the incision. Site for division of the sigmoid colon at the junction with descending colon was chosen. The mesentery was away from the wall of the bowel and it was divided using the LUIS ANTONIO stapler. The mesentery of the sigmoid colon was then divided using the LigaSure and also a clamp-clamp, divide, and ligate technique for the larger vessels. They were ligated with 2-0 silk. I worked down towards the sacral promontory and elevated the sigmoid colon away from the sacral promontory, as there were a few diverticula right there at that point. I then dissected for about 4 cm distal to that, the mesentery away from the wall there as well as the lateral stalks and divided the bowel using the TA stapler. The specimen was sent for pathology. The area was inspected for bleeding and none was seen. The proximal staple line was then established in any of the mesentery or fat and the surrounding wall was dissected away using cautery. Staple line was removed and the sizers were used. A 28 EEA was chosen. The anvil with trocar was placed intraluminally and the bowel was closed, making sure to include serosa around the entire circumference using the TA stapler. The trocar from the anvil was then used to torres the wall just anterior to the staple line. The distal staple line was then elevated and the fatty attachments posteriorly were such that there was serosa visible around the entire area where the EEA would be located. The anal canal was then dilated. One of the dilators was passed up to the staple line. The EEA firing device was then passed carefully, such that the end abutted the staple line and the distal side. The trocar was brought out of the end of the instrument behind the staple line. The anvil was attached and the anvil was withdrawn into the stapler such that the green was seen in the window of the stapler. It was then fired. It was opened 2-1/2 turns and removed. The donuts were checked and were intact. The anastomosis was inspected and was felt to be adequate. The pelvis was filled with saline and air was injected into the rectal opening, was felt to traverse the staple line. There was no bubbling. The irrigation was removed. The omentum was brought down behind the abdominal wall. The NG was in good position. The fascia of the vertical midline incision was closed with a running 0 PDS. The skin of all the incisions was closed with linda. Estimated blood loss was 300 mL. Sponge, needle and instrument counts were correct prior to closure. The patient tolerated the surgical procedure without complication and was transferred to recovery. I attest to the content of the Intraoperative Record and any orders documented therein. Any exception s are noted below.
[2017-06-11 04:02] VITALS: BP 136/82; PULSE 92; TEMP 37.2; O2SAT 98
[2017-06-11] MEDS: CEFOXITIN IV 2,000 MG in DEXTROSE 5% 50ML 50 ML IV SCH (05:47)
[2017-06-11] MEDS: NSS + 20MEQ KCL 1000ML 1,000 ML IV SCH ×3 (05:48→21:33)
[2017-06-11 06:24] LABS: COMPLETE YES; EOS % 0.1 %; HEMATOCRIT 35.8 % (37-47); IG% 0.3 %; LYMPH % 9.3 %; LYMPH ABS # 0.73 K/uL (1.2-3.4); MEAN CELL VOLUME 96.2 fL (80-100); MEAN CORPUSCULAR HEMOGLOBIN 30.9 pg (25-34); MEAN CORPUSCULAR HGB CONC 32.1 g/dl (32-36); MEAN PLATELET VOLUME 11.3 fL (7.4-10.4); MONO % 12.7 %; NEUT % 77.6 %; PLATELET COUNT 236 K/uL (130-400); RED BLOOD COUNT 3.72 M/uL (4.2-5.4); WHITE BLOOD COUNT 7.89 K/uL (4.8-10.8)
[2017-06-11 06:54] LABS: BUN/CREATININE RATIO 11.9 (10-20); CALCIUM 8.3 mg/dl (8.5-10.1); CREATININE 0.68 mg/dl (0.60-1.20); POTASSIUM 4.8 mmol/L (3.5-5.1)
[2017-06-11 06:56] VITALS: O2SAT 95
[2017-06-11] MEDS: HYDROmorphone HCL 0.5MG/ML 50 ML CASSETTE IV PRN ×3 (06:57→22:53)
[2017-06-11 07:11] VITALS: BP 118/76; PULSE 93; TEMP 36.9; O2SAT 92
[2017-06-11] MEDS: ALUMINUM/MAGNESIUM SUSP 30 ML UDC NG SCH ×4 (08:18→20:50)
--- NOTE | 2017-06-11 10:03 | Surgery Progress Note ---
Surgery Progress Note Date of Service Jun 11, 2017. Subjective Post OP Day: 1 + feeling well, + complaints (sore throat), + pain controlled, No chest pain, No ambulating, No SOB, No bowel movement, No flatus, No nausea, No vomiting Objective Vital Signs: Date Time Temp Pulse Resp B/P (MAP) Pulse Ox O2 Delivery O2 Flow Rate FiO2 06/11/17 07:11 36.9 93 18 118/76 (90) 92 Room Air 06/11/17 06:56 95 Room Air 06/11/17 04:02 37.2 92 16 136/82 (100) 98 Nasal Cannula 3.0 06/11/17 00:40 Nasal Cannula 2.0 06/10/17 22:55 36.7 95 16 118/81 (93) 97 Nasal Cannula 3.0 06/10/17 19:33 36.8 101 18 120/85 (97) 96 Nasal Cannula 3.0 06/10/17 15:35 Nasal Cannula 2.0 06/10/17 15:23 36.8 102 18 125/84 (98) 97 Nasal Cannula 3.0 06/10/17 14:30 110 18 129/84 (99) 97 06/10/17 13:30 36.4 101 16 123/86 (98) 96 Nasal Cannula 2.0 06/10/17 13:11 Nasal Cannula 2.0 06/10/17 13:03 36.5 87 17 134/87 (103) 97 Nasal Cannula 2.0 06/10/17 12:30 96 Nasal Cannula 2.0 06/10/17 12:30 36.5 105 18 137/88 (104) 96 Nasal Cannula 2.0 06/10/17 12:07 91 9 98 06/10/17 12:07 91 9 06/10/17 12:06 142/90 06/10/17 12:02 85 13 99 06/10/17 12:02 87 13 06/10/17 12:01 137/89 06/10/17 11:57 77 7 99 06/10/17 11:57 77 7 06/10/17 11:56 121/82 06/10/17 11:54 36.4 94 20 135/90 99 Nasal Cannula 4 06/10/17 11:52 86 9 99 06/10/17 11:52 87 9 06/10/17 11:51 135/90 06/10/17 11:47 84 9 96 06/10/17 11:47 86 9 06/10/17 11:46 122/81 06/10/17 11:42 86 7 06/10/17 11:42 86 7 97 06/10/17 11:41 135/90 06/10/17 11:37 85 8 06/10/17 11:37 86 8 97 06/10/17 11:36 145/86 06/10/17 11:32 89 10 92 06/10/17 11:32 89 10 06/10/17 11:31 144/81 06/10/17 11:27 98 16 06/10/17 11:27 97 16 99 06/10/17 11:26 127/82 06/10/17 11:22 96 20 06/10/17 11:22 96 20 100 06/10/17 11:21 125/80 06/10/17 11:17 94 9 96 06/10/17 11:17 94 9 06/10/17 11:16 158/110 06/10/17 11:12 102 20 06/10/17 11:12 102 20 100 06/10/17 11:11 133/84 06/10/17 11:07 93 3 06/10/17 11:07 93 3 100 06/10/17 11:06 140/101 06/10/17 11:03 140/104 06/10/17 11:02 114 06/10/17 11:02 37.2 20 140/104 100 Mask 10 06/10/17 11:02 114 100 Physical Exam: nasogastric drainage (bilious) General Appearance: WD/WN, no apparent distress Head: normocephalic, atraumatic Neck: trachea midline Respiratory/Chest: no respiratory distress, no accessory muscle use Abdomen: non distended, soft, + tenderness (appropriate post op but minimal) Incision(s): clean, dry (dressing clean and dry, incision not inspected) Laboratory Results: Results Past 24 Hours Test 06/11/17 06:04 Range/Units White Blood Count 7.89 4.8-10.8 K/uL Red Blood Count 3.72 4.2-5.4 M/uL Hemoglobin 11.5 12.0-16.0 g/dL Hematocrit 35.8 37-47 % Mean Corpuscular Volume 96.2 80-100 fL Mean Corpuscular Hemoglobin 30.9 25-34 pg Mean Corpuscular Hemoglobin Concent 32.1 32-36 g/dl Platelet Count 236 130-400 K/uL Mean Platelet Volume 11.3 7.4-10.4 fL Neutrophils (%) (Auto) 77.6 % Lymphocytes (%) (Auto) 9.3 % Monocytes (%) (Auto) 12.7 % Eosinophils (%) (Auto) 0.1 % Basophils (%) (Auto) 0.0 % Neutrophils # (Auto) 6.13 1.4-6.5 K/uL Lymphocytes # (Auto) 0.73 1.2-3.4 K/uL Monocytes # (Auto) 1.00 0.11-0.59 K/uL Eosinophils # (Auto) 0.01 0-0.5 K/uL Basophils # (Auto) 0.00 0-0.2 K/uL RDW Standard Deviation 46.9 36.4-46.3 fL RDW Coefficient of Variation 13.3 11.5-14.5 % Immature Granulocyte % (Auto) 0.3 % Immature Granulocyte # (Auto) 0.02 0.00-0.02 K/uL Sodium Level 137 136-145 mmol/L Potassium Level 4.8 3.5-5.1 mmol/L Chloride Level 108 98-107 mmol/L Carbon Dioxide Level 24 21-32 mmol/L Anion Gap 5.0 3-11 mmol/L Blood Urea Nitrogen 8 7-18 mg/dl Creatinine 0.68 0.60-1.20 mg/dl Est Creatinine Clear Calc Drug Dose 102.3 ml/min Estimated GFR () 115.7 Estimated GFR (Non- 99.9 BUN/Creatinine Ratio 11.9 10-20 Random Glucose 111 70-99 mg/dl Calcium Level 8.3 8.5-10.1 mg/dl Hepatitis C Antibody Screen NEG NEG Assessment & Plan POD # 1 s/p laparoscopic assisted sigmoidectomy with primary anastomosis -vitals stable - 100 NGT output - pain minimal - adequate urine output 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 Eduardo has seen and examined patient, agrees with above
[2017-06-11] MEDS: SODIUM CHLORIDE 0.9% 1000ML 1,000 ML IV SCH (10:55)
--- NOTE | 2017-06-11 11:01 | Anesthesiology Progress Note ---
Anesthesia Post Op Note Date & Time Jun 11, 2017 at 11:00 Vital Signs Pain Intensity: 4.0 Vital Signs Past 12 Hours Date Time Temp Pulse Resp B/P (MAP) Pulse Ox O2 Delivery O2 Flow Rate FiO2 06/11/17 07:40 Room Air 06/11/17 07:11 36.9 93 18 118/76 (90) 92 Room Air 06/11/17 06:56 95 Room Air 06/11/17 04:02 37.2 92 16 136/82 (100) 98 Nasal Cannula 3.0 06/11/17 00:40 Nasal Cannula 2.0 Notes Mental Status: alert / awake / arousable, participated in evaluation Pt Amnestic to Procedure: Yes Nausea / Vomiting: adequately controlled Pain: adequately controlled Airway Patency, RR, SpO2: stable & adequate BP & HR: stable & adequate Hydration State: stable & adequate Anesthetic Complications: no major complications apparent
[2017-06-11 15:29] VITALS: BP 158/86; PULSE 84; TEMP 37; O2SAT 98
[2017-06-11 23:04] VITALS: BP 123/72; PULSE 88; TEMP 37.2; O2SAT 93
[2017-06-12] VITALS (7 sets, daily range): BP systolic 119–137; BP diastolic 75–90; PULSE 74–88; TEMP 37–37.4; O2SAT 91–96
[2017-06-12] MEDS: NSS + 20MEQ KCL 1000ML 1,000 ML IV SCH ×3 (04:54→21:16)
[2017-06-12] MEDS: HYDROmorphone HCL 0.5MG/ML 50 ML CASSETTE IV PRN ×3 (07:14→22:57)
[2017-06-12 08:17] LABS: BASO % 0.2 %; BASO ABS # 0.01 K/uL (0-0.2); COMPLETE YES; EOS % 0.9 %; HEMATOCRIT 29.6 % (37-47); IG% 0.2 %; LYMPH % 25.9 %; MEAN CELL VOLUME 97.4 fL (80-100); MEAN CORPUSCULAR HEMOGLOBIN 31.9 pg (25-34); MEAN CORPUSCULAR HGB CONC 32.8 g/dl (32-36); MONO % 11.4 %; NEUT % 61.4 %; PLATELET COUNT 175 K/uL (130-400); RED BLOOD COUNT 3.04 M/uL (4.2-5.4); WHITE BLOOD COUNT 4.64 K/uL (4.8-10.8)
[2017-06-12 08:23] LABS: INR 0.9 (0.9-1.1); PROTHROMBIN TIME (PATIENT) 9.6 SECONDS (9.0-12.0)
[2017-06-12] MEDS: ALUMINUM/MAGNESIUM SUSP 30 ML UDC NG SCH ×4 (08:35→21:16)
[2017-06-12] MEDS: ENOXAPARIN 40 MG/0.4 ML SYR SQ SCH (08:36)
[2017-06-12 08:42] LABS: CREATININE 0.48 mg/dl (0.60-1.20)
[2017-06-12 08:43] LABS: BUN/CREATININE RATIO 14.8 (10-20); CALCIUM 8.2 mg/dl (8.5-10.1); POTASSIUM 4.2 mmol/L (3.5-5.1)
--- NOTE | 2017-06-12 09:45 | Surgery Progress Note ---
Surgery Progress Note Date of Service Jun 12, 2017. Subjective Post OP Day: 2 + feeling well (feeling better than yesterday), + ambulating (ambulated one loop in hallway last evening), + pain controlled, No chest pain, No SOB, No bowel movement, No flatus, No nausea, No vomiting Objective Vital Signs: Date Time Temp Pulse Resp B/P (MAP) Pulse Ox O2 Delivery O2 Flow Rate FiO2 06/12/17 08:26 96 Room Air 06/12/17 08:04 37.1 74 20 122/78 (93) 96 Room Air 06/12/17 03:27 37.1 84 16 131/75 (93) 91 Room Air 06/11/17 23:50 Room Air 06/11/17 23:04 37.2 88 16 123/72 (89) 93 Room Air 06/11/17 16:00 Room Air 06/11/17 15:29 37.0 84 18 158/86 (110) 98 Room Air Physical Exam: nasogastric drainage (bilious) General Appearance: WD/WN, no apparent distress Head: normocephalic, atraumatic Neck: trachea midline Respiratory/Chest: no respiratory distress, no accessory muscle use Abdomen: non distended, soft, + tenderness (appropriate post op) Incision(s): clean, dry, intact, no erythema, no drainage, findings (linda intact) Laboratory Results: Results Past 24 Hours Test 06/12/17 07:52 Range/Units White Blood Count 4.64 4.8-10.8 K/uL Red Blood Count 3.04 4.2-5.4 M/uL Hemoglobin 9.7 12.0-16.0 g/dL Hematocrit 29.6 37-47 % Mean Corpuscular Volume 97.4 80-100 fL Mean Corpuscular Hemoglobin 31.9 25-34 pg Mean Corpuscular Hemoglobin Concent 32.8 32-36 g/dl Platelet Count 175 130-400 K/uL Mean Platelet Volume 11.0 7.4-10.4 fL Neutrophils (%) (Auto) 61.4 % Lymphocytes (%) (Auto) 25.9 % Monocytes (%) (Auto) 11.4 % Eosinophils (%) (Auto) 0.9 % Basophils (%) (Auto) 0.2 % Neutrophils # (Auto) 2.85 1.4-6.5 K/uL Lymphocytes # (Auto) 1.20 1.2-3.4 K/uL Monocytes # (Auto) 0.53 0.11-0.59 K/uL Eosinophils # (Auto) 0.04 0-0.5 K/uL Basophils # (Auto) 0.01 0-0.2 K/uL RDW Standard Deviation 47.7 36.4-46.3 fL RDW Coefficient of Variation 13.5 11.5-14.5 % Immature Granulocyte % (Auto) 0.2 % Immature Granulocyte # (Auto) 0.01 0.00-0.02 K/uL Prothrombin Time 9.6 9.0-12.0 SECONDS Prothromb Time International Ratio 0.9 0.9-1.1 Sodium Level 139 136-145 mmol/L Potassium Level 4.2 3.5-5.1 mmol/L Chloride Level 109 98-107 mmol/L Carbon Dioxide Level 25 21-32 mmol/L Anion Gap 5.0 3-11 mmol/L Blood Urea Nitrogen 7 7-18 mg/dl Creatinine 0.48 0.60-1.20 mg/dl Est Creatinine Clear Calc Drug Dose 144.9 ml/min Estimated GFR () 129.8 Estimated GFR (Non- 112.0 BUN/Creatinine Ratio 14.8 10-20 Random Glucose 84 70-99 mg/dl Calcium Level 8.2 8.5-10.1 mg/dl Assessment & Plan POD # 2 s/p laparoscopic assisted sigmoidectomy with primary anastomosis - vitals stable - 200 NGT output last shift - pain minimal - adequate urine output, davison discontinued this am 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 Fatima has seen and examined patient, agrees with above
[2017-06-12] MEDS: SODIUM CHLORIDE 0.9% 1000ML 1,000 ML IV SCH (10:04)
[2017-06-13 04:00] VITALS: BP 133/84; PULSE 87; TEMP 37.3; O2SAT 98
[2017-06-13] MEDS: NSS + 20MEQ KCL 1000ML 1,000 ML IV SCH ×3 (04:37→20:53)
[2017-06-13 06:37] LABS: BASO % 0.6 %; BASO ABS # 0.03 K/uL (0-0.2); COMPLETE YES; EOS % 2.4 %; HEMATOCRIT 31.5 % (37-47); IG% 0.2 %; LYMPH % 25.1 %; LYMPH ABS # 1.26 K/uL (1.2-3.4); MEAN CELL VOLUME 97.8 fL (80-100); MEAN CORPUSCULAR HEMOGLOBIN 31.1 pg (25-34); MEAN CORPUSCULAR HGB CONC 31.7 g/dl (32-36); MEAN PLATELET VOLUME 11.4 fL (7.4-10.4); MONO % 9.2 %; NEUT % 62.5 %; PLATELET COUNT 202 K/uL (130-400); RED BLOOD COUNT 3.22 M/uL (4.2-5.4); WHITE BLOOD COUNT 5.01 K/uL (4.8-10.8)
[2017-06-13] MEDS: HYDROmorphone HCL 0.5MG/ML 50 ML CASSETTE IV PRN ×2 (06:54→14:59)
[2017-06-13 07:57] VITALS: BP 150/89; PULSE 85; TEMP 36.6; O2SAT 95
[2017-06-13 08:10] VITALS: O2SAT 95
[2017-06-13] MEDS: ENOXAPARIN 40 MG/0.4 ML SYR SQ SCH (08:49)
--- NOTE | 2017-06-13 08:49 | Surgery Progress Note ---
Surgery Progress Note Date of Service Jun 13, 2017. Subjective Post OP Day: 3 (s/p laparoscopic assisted sigmoid resection) Objective Vital Signs: Date Time Temp Pulse Resp B/P (MAP) Pulse Ox O2 Delivery O2 Flow Rate FiO2 06/13/17 08:10 95 Room Air 06/13/17 07:57 36.6 85 14 150/89 (109) 95 Room Air 06/13/17 04:00 37.3 87 16 133/84 (100) 98 Room Air 06/13/17 00:20 Room Air 06/12/17 23:34 37.0 87 16 137/84 (101) 93 Room Air 06/12/17 19:14 37.4 85 18 119/79 (92) 93 Room Air 06/12/17 16:00 Room Air 06/12/17 15:03 37.4 86 18 123/82 (96) 94 Room Air 06/12/17 11:33 37.2 88 20 128/90 (103) 91 Room Air Physical Exam: nasogastric drainage (bilious) General Appearance: WD/WN, no apparent distress Head: normocephalic, atraumatic Neck: trachea midline Respiratory/Chest: no respiratory distress, no accessory muscle use Abdomen: normal bowel sounds, non tender, non distended, soft, no organomegaly , no pulsatile mass Incision(s): clean, dry, intact, no erythema, no drainage Laboratory Results: Results Past 24 Hours Test 06/13/17 06:06 Range/Units White Blood Count 5.01 4.8-10.8 K/uL Red Blood Count 3.22 4.2-5.4 M/uL Hemoglobin 10.0 12.0-16.0 g/dL Hematocrit 31.5 37-47 % Mean Corpuscular Volume 97.8 80-100 fL Mean Corpuscular Hemoglobin 31.1 25-34 pg Mean Corpuscular Hemoglobin Concent 31.7 32-36 g/dl Platelet Count 202 130-400 K/uL Mean Platelet Volume 11.4 7.4-10.4 fL Neutrophils (%) (Auto) 62.5 % Lymphocytes (%) (Auto) 25.1 % Monocytes (%) (Auto) 9.2 % Eosinophils (%) (Auto) 2.4 % Basophils (%) (Auto) 0.6 % Neutrophils # (Auto) 3.13 1.4-6.5 K/uL Lymphocytes # (Auto) 1.26 1.2-3.4 K/uL Monocytes # (Auto) 0.46 0.11-0.59 K/uL Eosinophils # (Auto) 0.12 0-0.5 K/uL Basophils # (Auto) 0.03 0-0.2 K/uL RDW Standard Deviation 46.6 36.4-46.3 fL RDW Coefficient of Variation 13.0 11.5-14.5 % Immature Granulocyte % (Auto) 0.2 % Immature Granulocyte # (Auto) 0.01 0.00-0.02 K/uL Assessment & Plan POD # 3 s/p Laparoscopic assisted sigmoid resection with primary anastomosis -vitals stable - return of bowel function, 2 liquid BMs - no nausea or vomiting - abdomen soft, good bowel sounds, nondistended - minimal NGT output 100 in last shift Plan: D/C NGT Start sips of clears and chips D/C Maalox via NGT 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 Eduardo has seen patient, agrees with above
[2017-06-13] MEDS: SODIUM CHLORIDE 0.9% 1000ML 1,000 ML IV SCH (09:45)
[2017-06-13 13:52] VITALS: BP 123/87; PULSE 92; TEMP 36.6; O2SAT 95
[2017-06-13 15:17] VITALS: BP 132/86; PULSE 90; TEMP 37.7; O2SAT 96
[2017-06-13] MEDS ORDERED: OXYCODONE/ACETAMINOPHEN 5-325 TAB PO PRN (15:45)
[2017-06-13] MEDS ORDERED: MoRPHine SULFATE 2 MG/ML CARP IV PRN (16:15)
[2017-06-13] MEDS: OXYCODONE/ACETAMINOPHEN 5-325 TAB PO PRN (19:55)
[2017-06-13 23:12] VITALS: BP 133/88; PULSE 87; TEMP 36.8; O2SAT 95
[2017-06-14] MEDS: NSS + 20MEQ KCL 1000ML 1,000 ML IV SCH ×2 (05:06→14:31)
[2017-06-14] MEDS: OXYCODONE/ACETAMINOPHEN 5-325 TAB PO PRN (05:31)
[2017-06-14 07:24] VITALS: BP 145/88; PULSE 72; TEMP 37; O2SAT 96
[2017-06-14 07:34] LABS: CREATININE 0.36 mg/dl (0.60-1.20)
[2017-06-14] MEDS: ENOXAPARIN 40 MG/0.4 ML SYR SQ SCH (07:54)
[2017-06-14] MEDS: MoRPHine SULFATE 2 MG/ML CARP IV PRN ×2 (07:54→10:26)
[2017-06-14] MEDS ORDERED: HYDROCODONE/ACETAMOPHEN 5/325MG TAB PO PRN (11:15)
--- NOTE | 2017-06-14 12:19 | Surgery Progress Note ---
Surgery Progress Note Date of Service Jun 14, 2017. Subjective Post OP Day: 4 (s/p laparoscopic assisted sigmoidectomy with primary anastomosis) + feeling well, + ambulating, + bowel movement, + pain controlled (somewhat today, Percocet caused headache so not using as much pain medication), + diet ( tolerating clear liquids), No complaints, No chest pain, No SOB, No nausea, No vomiting Objective Vital Signs: Date Time Temp Pulse Resp B/P (MAP) Pulse Ox O2 Delivery O2 Flow Rate FiO2 06/14/17 07:40 Room Air 06/14/17 07:24 37.0 72 18 145/88 (107) 96 Room Air 06/13/17 23:15 Room Air 06/13/17 23:12 36.8 87 16 133/88 (103) 95 Room Air 06/13/17 16:10 Room Air 06/13/17 15:17 37.7 90 18 132/86 (101) 96 Room Air 06/13/17 13:52 36.6 92 20 123/87 (99) 95 Room Air General Appearance: WD/WN, no apparent distress Head: normocephalic, atraumatic Neck: trachea midline Respiratory/Chest: no respiratory distress, no accessory muscle use Abdomen: non distended, soft, + tenderness (appropriate post op) Incision(s): clean, dry, intact, no erythema, no drainage, findings (linda present and intact) Laboratory Results: Results Past 24 Hours Test 06/14/17 06:35 Range/Units Creatinine 0.36 0.60-1.20 mg/dl Est Creatinine Clear Calc Drug Dose 193.3 ml/min Estimated GFR () 142.7 Estimated GFR (Non- 123.1 Assessment & Plan POD # 4 s/p Laparoscopic assisted sigmoid resection with primary anastomosis -vitals stable - return of bowel function - no nausea or vomiting - abdomen soft, good bowel sounds, nondistended - Pain moderately controlled, Percocet caused headache Plan: Advance diet to soft diet Will decrease IV fluids to 80 mls/hr Will order PO [place] for pain instead of Percocet, encourage oral pain medication OOB to chair and ambulation Continue SCDs and Lovenox Hopeful for discharge tomorrow if pain controlled with oral pain medication and tolerating soft diet will recheck later today Re-evaluated at 3:00 pm Tolerated soft diet + bowel function, no nausea or vomiting Continue [place] for pain Hopeful discharge tomorrow Dr. Eduardo has seen patient, agrees with above
[2017-06-14] MEDS: HYDROCODONE/ACETAMOPHEN 5/325MG TAB PO PRN ×3 (12:37→23:32)
[2017-06-14] MEDS ORDERED: TRAMADOL HCL 50 MG TAB PO PRN (13:30)
[2017-06-14 15:21] VITALS: BP 126/84; PULSE 91; TEMP 37.4; O2SAT 93
[2017-06-14] MEDS ORDERED: HYDR-5688 PO (15:47)
--- NOTE | 2017-06-14 15:49 | Discharge Instructions ---
Discharge Instructions Date of Service Jun 14, 2017. Admission Reason for Admission: Diverticulitis Discharge Discharge Diagnosis / Problem: History of Diverticulitis, Sigmoid resection Discharge Goals Goal(s): Decrease discomfort, Improve function Activity Recommendations Activity Limitations: as noted below No heavy lifting over 10 pounds for 6 weeks No strenuous activity until cleared by surgeon No submerging incision underwater for 2 weeks (No bathing, swimming, or hot tubs ) No driving while taking narcotic pain medication or until you are pain free whichever comes last . Instructions / Follow-Up Instructions / Follow-Up You may shower and clean incisions gently with soap and water Surgical linda will be removed at your follow-up visit Please call office at [phone] to make a follow-up appointment Next Saturday for staple removal Stick to a low fiber diet until instructed otherwise Current Hospital Diet Patient's current hospital diet: Low Fiber Diet Discharge Diet Recommended Diet: Low Fiber Diet Procedures Procedures Performed: Laparoscopic Assisted Sigmoid Colectomy Pending Studies Studies pending at discharge: no Medical Emergencies . Who to Call and When: Medical Emergencies: If at any time you feel your situation is an emergency, please call 911 immediately. . Non-Emergent Contact Non-Emergency issues call your: Primary Care Provider, Surgeon Call Non-Emergent contact if: you have a fever, temperature is above 101.5, your pain is not controlled, your pain is worsening, wound has increased drainage, wound has increased redness, wound has increased pain . "Provider Documentation" section prepared by Cathy Alfonso. . VTE Core Measure Inpt VTE Proph given/why not?: Enoxaparin (Lovenox)SQ, SCD's [place] Drug Monitoring Program Search Results: patient reviewed within database, no issues identified
[2017-06-14 19:35] VITALS: TEMP 37.2
[2017-06-14] MEDS ORDERED: NURSING VERBAL MED ORDER ONE (19:45)
[2017-06-14 22:56] VITALS: BP 130/86; PULSE 75; TEMP 36.9; O2SAT 98
[2017-06-15] MEDS: HYDROCODONE/ACETAMOPHEN 5/325MG TAB PO PRN (06:22)
--- NOTE | 2017-06-15 06:57 | Surgery Progress Note ---
Surgery Progress Note Date of Service Jun 15, 2017. Subjective doing well- wants to go home- having bowel movements Objective Vital Signs: Date Time Temp Pulse Resp B/P (MAP) Pulse Ox O2 Delivery O2 Flow Rate FiO2 06/14/17 23:29 Room Air 06/14/17 22:56 36.9 75 16 130/86 (101) 98 Room Air 06/14/17 19:35 37.2 06/14/17 16:40 Room Air 06/14/17 15:21 37.4 91 18 126/84 (98) 93 Room Air 06/14/17 07:40 Room Air 06/14/17 07:24 37.0 72 18 145/88 (107) 96 Room Air General Appearance: no apparent distress Respiratory/Chest: no respiratory distress Abdomen: soft Incision(s): intact Assessment & Plan 06/15/17- doing well- d/c home surgical office next Fri
[2017-06-15 07:29] VITALS: BP 130/86; PULSE 75; TEMP 36.9; O2SAT 98
[2017-06-15 07:30] VITALS: BP 124/83; PULSE 73; TEMP 36.9; O2SAT 95
[2017-06-15] MEDS: ENOXAPARIN 40 MG/0.4 ML SYR SQ SCH (08:49)
--- NOTE | 2017-06-17 11:16 | Discharge Summary ---
Discharge Summary Dates Admission Date / Time: Jun 10, 2017 at 11:09 Discharge Date: Jun 15, 2017 Dispostion / Condition Discharge Disposition: Home Condition at Discharge: Good Principal Diagnosis (1) Diverticulitis (2) Hx of diverticulitis of colon Problem List (1) Diverticulitis (2) Breast cancer (3) Hx of diverticulitis of colon (4) Migraine Consultations / Procedures Consultations: PT Procedures: Laparoscopic assisted sigmoid colectomy with primary anastomosis Pending Studies / Follow-Up None Medication Reconciliation New Medications: Hydrocodone/Acetaminophen 5MG/325MG ([place] 5MG/325MG) Tab 1-2 TABLET PO Q4H PRN for Pain, #30 TAB Continued Medications: Anastrozole (Anastrozole) 1 Mg Tab 1 TAB PO QAM for 90 Days, #90 TAB 3 Refills Cholecalciferol (Vitamin D3) 1,000 Unit Tab 1 APPL PO QAM for 30 Days, TAB 5 Refills Evening Weldon Oil (Evening Weldon Oil) 1,000 Mg Cap 1 CAP PO QAM Omeprazole (Prilosec) 20 Mg Capcr 20 MG PO QAM, CAP Turmeric (Curcuma Longa) (Turmeric) 500 Mg Cap 1 TAB PO QAM [Liver Complex] () 1000 MG PO QAM [Ashley Tail] () 1 CAP PO QAM [Vitamin B Stress] () 1 TAB PO QAM Admission HPI Per the Admitting provider: Destini Ramsey is a 51 year-old female who had recurrent episodes of diverticulitis, three previous times, who elected for sigmoid colectomy by Dr. Eduardo. She presented to [facility] on 06/10/17 for the proposed procedure and then was admitted to hospital for post operative care. Hospital Course (1) Hx of diverticulitis of colon Patient was taken to operating room for laparoscopic assisted sigmoid colectomy and primary anastomosis. Patient tolerated procedure well without any complications. She was transferred to recovery room in stable condition and then to med/surgical floor for post operative care. Post op orders included: NPO, NGT to LIS, Dilaudid housekeeping lead as needed for pain, IV fluids, Aquino to gravity, and Lovenox to start POD # 1 . POD # 1 patient had moderate pain, no return of bowel function, no nausea or vomiting. Not ambulating much due to pain so wanted to keep Aquino for one more day. POD # 2, able to get out of bed without difficulty, started ambulated hallways, and Aquino catheter removed in the am. No return of bowel function yet and NGT was kept one more day. POD # 3, + flatus and liquid bowel movement, NGT removed, continued to ambulated, Lovenox and SCDs continued, and started sips of clears. 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 POD # 4 tolerating clears therefore diet was advanced to soft diet. Percocet caused headache therefore was switched to [place]. Continued to ambulate and urine output was adequate. Pain controlled. POD # 5 patient was doing well, pain controlled, still having bowel movements, and tolerating diet. Was ready for discharge. Was discharged on POD # 5 in stable condition, overall hospital course was uneventful. Discharge Instructions as given to patient Copies To Primary Care Provider: Vi Soliz M.D..
== END 2017-06-15 08:57 | disposition home or self-care (01) | DRG 331 ==
LOC: C.ACU 05:18 → C.MSW 11:09 → ENRESERV 11:31
PROVIDERS: ADMIT Surgery; ATTEND Surgery
PROC: 0DTN0ZZ Resection of Sigmoid Colon, Open Approach (ICD-10-PCS; principal; 2017-06-10 07:00)
DX: K57.92 Diverticulitis of intestine, part unspecified, without perforation or abscess without bleeding (principal); C50.411 Malignant neoplasm of upper-outer quadrant of right female breast; Z79.899 Other long term (current) drug therapy; Z86.711 Personal history of pulmonary embolism; Z87.891 Personal history of nicotine dependence

== ENCOUNTER 2017-06-17 12:33 | Emergency (ER) | payer OTHER ==
[~2017-06-17] VITALS: Ht 167.6 cm; Wt 79.3 kg
[~2017-06-17 12:33] MED LIST changes: +HYDR-5688 PO
[2017-06-17 12:53] VITALS: TEMP 36.9; Ht 167.6 cm; Wt 79.3 kg
[2017-06-17 14:10] LABS: URINE APPEARANCE CLEAR (CLEAR); URINE BILIRUBIN NEG (NEG); URINE COLOR YELLOW; URINE NITRITE NEG (NEG); URINE SPECIFIC GRAVITY 1.004 (1.000-1.030); UROBILINOGEN NEG (NEG); ZZUR CULT IF INDIC CLEAN CATCH NO
[2017-06-17] MEDS ORDERED: LORAZEPAM 1 MG TAB SL STA (14:15)
[2017-06-17 14:18] LABS: MANUAL MICROSCOPIC REQUIRED? NO; REVIEW REQ? NO
[2017-06-17 15:12] LABS: BASO % 0.2 %; BASO ABS # 0.01 K/uL (0-0.2); COMPLETE YES; EOS % 2.3 %; HEMATOCRIT 35.7 % (37-47); IG% 0.3 %; LYMPH % 24.1 %; LYMPH ABS # 1.38 K/uL (1.2-3.4); MEAN CELL VOLUME 95.5 fL (80-100); MEAN CORPUSCULAR HEMOGLOBIN 32.6 pg (25-34); MEAN CORPUSCULAR HGB CONC 34.2 g/dl (32-36); MEAN PLATELET VOLUME 10.5 fL (7.4-10.4); MONO % 8.7 %; NEUT % 64.4 %; PLATELET COUNT 387 K/uL (130-400); RED BLOOD COUNT 3.74 M/uL (4.2-5.4); WHITE BLOOD COUNT 5.72 K/uL (4.8-10.8)
[2017-06-17 15:53] LABS: ALKALINE PHOSPHATASE 110 U/L (45-117); ALT/SGPT 67 U/L (12-78); AST/SGOT 52 U/L (15-37); BLOOD UREA NITROGEN 5 mg/dl (7-18); BUN/CREATININE RATIO 7.9 (10-20); CALCIUM 9.3 mg/dl (8.5-10.1); CARBON DIOXIDE 24 mmol/L (21-32); CHLORIDE 105 mmol/L (98-107); CREATININE 0.64 mg/dl (0.60-1.20); GLUCOSE 105 mg/dl (70-99); POTASSIUM 4.5 mmol/L (3.5-5.1); SODIUM 135 mmol/L (136-145)
[2017-06-17] MEDS ORDERED: HYDROCODONE/ACETAMOPHEN 5/325MG TAB PO STA (16:44)
[2017-06-17] MEDS ORDERED: LORAZEPAM 0.5 MG TAB SL STA (17:37)
[2017-06-17] MEDS ORDERED: OPTIRAY 320 IV PRN (18:00)
--- NOTE | 2017-06-17 18:19 | DIAGNOSTIC IMAGING REPORT ---
ABDOMEN AND PELVIS CT WITH IV AND ORAL CONTRAST CT DOSE: 541.54 mGy.cm HISTORY: recent partial colectomy, air in bladder. ?Colovesical fistula TECHNIQUE: Multiaxial CT images of the abdomen and pelvis were performed following the use of intravenous and oral contrast. A dose lowering technique was utilized adhering to the principles of ALARA. COMPARISON STUDY: Abdomen and pelvis CT 03/03/2017. FINDINGS: Small to moderate hiatus hernia, unchanged. The lung bases are essentially clear. The liver, gallbladder, spleen, adrenal glands, pancreas, and kidneys are unremarkable. No retroperitoneal lymphadenopathy. Recent midline incision with multiple skin linda. No bladder wall thickening. Trace gas within the bladder lumen. Recent sigmoid anastomosis. Abnormal soft tissue superior to the anastomosis. This measures approximate 4.7 x 4.3 cm. This favors a phlegmon. There is also small amount of presacral soft tissue thickening/fluid which contains a small focus of gas. This measures 3.7 x 1.2 cm. Colonic diverticulosis. There is a single punctate focus of gas within the left adnexa on image 373. This could be within a venous structure. The uterus and ovaries are within normal limits. There is no evidence for a fistula tract from the colon to the bladder. The colon does abut the left side of the bladder on image 326. Mild pericolonic inflammatory change at the splenic flexure with a thickened diverticulum best seen on image 91. This favors acute diverticulitis at this location. Normal appendix. There is mild bowel wall thickening at the hepatic flexure of the colon. No retroperitoneal lymphadenopathy. Small amount of gas within the midline incision which favors postoperative change. IMPRESSION: 1. Small amount of gas within the bladder lumen. However, no CT evidence for a fistula from the colon. Although indeterminate, given the recent postoperative change this favors residual gas from a Aquino catheter during surgery. Follow up can be performed if clinically wanted to ensure resolution. 2. Status post sigmoid anastomosis. There is an ill-defined 4.7 x 4.3 cm soft tissue abnormality superior to the anastomosis. This favors a phlegmon or possibly postoperative change. There is no extraluminal gas at this location to suggest an abscess. If the patient symptoms continue to progress then consider follow-up to exclude the less likely possibility of anastomotic leak. 3. Small amount of soft tissue/fluid with a small focus of gas within the presacral location. This could be due to a postoperative seroma or possibly a small abscess. Again, follow-up can be performed to ensure resolution. 4. Thickening and pericolonic fat stranding within the splenic flexure of the colon at the site of a diverticula. This is consistent with acute diverticulitis. Electronically signed by: Dane Moreno M.D. 06/17/2017 6:18 PM Dictated Date/Time: 06/17/2017 6:02 PM
[2017-06-17 19:59] VITALS: BP 132/98; PULSE 88; O2SAT 96
--- NOTE | 2017-06-17 20:44 | EMERGENCY ROOM VISIT NOTE ---
History Report prepared by Gabby: Reji Barry Under the Supervision of: Dr. Kurt Taylor M.D. First contact with patient: 13:50 Chief Complaint: URINARY SYMPTOMS Stated Complaint: EXPRESSING AIR THOUGH URETHRA S/P SURGERY CATHETER Nursing Triage Summary: triage note: pt reprots colectomy saturday06-10-17 at [facility] and discharged on saturday. pt reports "it seems to me that i am expressing gas through my urethrea. History of Present Illness The patient is a 51 year old female who presents to the Emergency Room with complaints of persistent urinary symptoms beginning two days ago. She feels that she is "expressing air through her urethra" while urinating. The patient has a Aquino catheter in place s/p partial colectomy occurring 1 week ago. She had her entire sigmoid colon removed due to diverticulitis. She states that she was released from the hospital two days ago. The patient states "I feel like I may have been expressing air through my vagina since the surgery", but now believes it is likely her urethra. Pt denies LOC, headache, fevers, chills, diaphoresis, visual changes, neck pain, chest pain, breathing difficulties, nausea, vomiting, back pain, melena, hematochezia, numbness, weakness, lymphadenopathy, rash, or other complaints. Source of History: patient Onset: two days ago Quality: other (urinary symptoms) Timing: other (persistent) Review of Systems See HPI for pertinent positives and negatives. A total of ten systems were reviewed and were otherwise negative. Past Medical & Surgical Medical Problems: (1) blood clot after surgery (2) Breast cancer (3) CARDIAC MURMURS NEC (4) Hx of diverticulitis of colon (5) Migraine (6) Radial nerve palsy (7) Shortness of breath Family History Cancer FH: heart disease Hypertension Social History Smoking Status: Former Smoker Alcohol Use: occasionally Drug Use: none Marital Status: in relationship Housing Status: lives with family Occupation Status: employed Current/Historical Medications Scheduled Anastrozole (Anastrozole), 1 TAB PO QAM Cholecalciferol (Vitamin D3), 1 APPL PO QAM Evening [place] Oil (Evening [place] Oil), 1 CAP PO QAM Omeprazole (Prilosec), 20 MG PO QAM Turmeric (Curcuma Longa) (Turmeric), 1 TAB PO QAM [Liver Complex], 1,000 MG PO QAM [[place]], 1 CAP PO QAM [Vitamin B Stress], 1 TAB PO QAM Scheduled PRN Hydrocodone/Acetaminophen 5MG/325MG ([place] 5MG/325MG), 1-2 TABLET PO Q4H PRN for Pain Allergies Coded Allergies: Adhesives (Verified Allergy, Mild, Tape blisters, 06/17/17) Codeine (Verified Allergy, Mild, nausea/vomiting, 06/17/17) Physical Exam Vital Signs Date Time Temp Pulse Resp B/P (MAP) Pulse Ox O2 Delivery O2 Flow Rate FiO2 06/17/17 19:59 88 20 132/98 96 06/17/17 18:56 88 18 142/91 97 Room Air 06/17/17 16:58 92 18 121/81 98 Room Air 06/17/17 12:53 36.9 92 18 124/87 98 Room Air Physical Exam GENERAL: Awake, alert, anxious-appearing, in no distress HENT: Normocephalic, atraumatic. Oropharynx unremarkable. EYES: Normal conjunctiva. Sclera non-icteric. NECK: Supple. No nuchal rigidity. FROM. No JVD. RESPIRATORY: Clear to auscultation. CARDIAC: Regular rate, normal rhythm. Extremities warm and well perfused. Pulses equal. ABDOMEN: Soft, non-distended. No tenderness to palpation. No rebound or guarding. No masses. Lower midline incision and trochar sites are healing without drainage. RECTAL: Deferred. MUSCULOSKELETAL: Chest examination reveals no tenderness. The back is symmetrical on inspection without obvious abnormality. There is no CVA tenderness to palpation. No joint edema. LOWER EXTREMITIES: Calves are equal size bilaterally and non-tender. No edema. No discoloration. NEURO: Normal sensorium. No sensory or motor deficits noted. SKIN: No rash or jaundice noted. Medical Decision & Procedures ER Provider Diagnostic Interpretation: CT: Radiology results as stated below per my review and radiologist interpretation ABDOMEN AND PELVIS CT WITH IV AND ORAL CONTRAST FINDINGS: Small to moderate hiatus hernia, unchanged. The lung bases are essentially clear. The liver, gallbladder, spleen, adrenal glands, pancreas, and kidneys are unremarkable. No retroperitoneal lymphadenopathy. Recent midline incision with multiple skin linda. No bladder wall thickening. Trace gas within the bladder lumen. Recent sigmoid anastomosis. Abnormal soft tissue superior to the anastomosis. This measures approximate 4.7 x 4.3 cm. This favors a phlegmon. There is also small amount of presacral soft tissue thickening/fluid which contains a small focus of gas. This measures 3.7 x 1.2 cm. Colonic diverticulosis. There is a single punctate focus of gas within the left adnexa on image 373. This could be within a venous structure. The uterus and ovaries are within normal limits. There is no evidence for a fistula tract from the colon to the bladder. The colon does abut the left side of the bladder on image 326. Mild pericolonic inflammatory change at the splenic flexure with a thickened diverticulum best seen on image 91. This favors acute diverticulitis at this location. Normal appendix. There is mild bowel wall thickening at the hepatic flexure of the colon. No retroperitoneal lymphadenopathy. Small amount of gas within the midline incision which favors postoperative change. IMPRESSION: 1. Small amount of gas within the bladder lumen. However, no CT evidence for a fistula from the colon. Although indeterminate, given the recent postoperative change this favors residual gas from a Aquino catheter during surgery. Follow up can be performed if clinically wanted to ensure resolution. 2. Status post sigmoid anastomosis. There is an ill-defined 4.7 x 4.3 cm soft tissue abnormality superior to the anastomosis. This favors a phlegmon or possibly postoperative change. There is no extraluminal gas at this location to suggest an abscess. If the patient symptoms continue to progress then consider follow-up to exclude the less likely possibility of anastomotic leak. 3. Small amount of soft tissue/fluid with a small focus of gas within the presacral location. This could be due to a postoperative seroma or possibly a small abscess. Again, follow-up can be performed to ensure resolution. 4. Thickening and pericolonic fat stranding within the splenic flexure of the colon at the site of a diverticula. This is consistent with acute diverticulitis. Electronically signed by: Dane Moreno M.D. Laboratory Results 06/17/17 15:00 Red Blood Count 3.74, Mean Corpuscular Volume 95.5, Mean Corpuscular Hemoglobin 32.6, Mean Corpuscular Hemoglobin Concent 34.2, Mean Platelet Volume 10.5, Neutrophils (%) (Auto) 64.4, Lymphocytes (%) (Auto) 24.1, Monocytes (%) (Auto) 8.7, Eosinophils (%) (Auto) 2.3, Basophils (%) (Auto) 0.2, Neutrophils # (Auto) 3.68, Lymphocytes # (Auto) 1.38, Monocytes # (Auto) 0.50, Eosinophils # (Auto) 0.13, Basophils # (Auto) 0.01 06/17/17 15:00 Test 06/17/17 13:46 06/17/17 15:00 Urine Color YELLOW Urine Appearance CLEAR (CLEAR) Urine pH 8.0 (4.5-7.5) Urine Specific Gordon 1.004 (1.000-1.030) Urine Protein NEG (NEG) Urine Glucose (UA) NEG (NEG) Urine Ketones NEG (NEG) Urine Occult Blood NEG (NEG) Urine Nitrite NEG (NEG) Urine Bilirubin NEG (NEG) Urine Urobilinogen NEG (NEG) Urine Leukocyte Esterase NEG (NEG) White Blood Count 5.72 K/uL (4.8-10.8) Red Blood Count 3.74 M/uL (4.2-5.4) Hemoglobin 12.2 g/dL (12.0-16.0) Hematocrit 35.7 % (37-47) Mean Corpuscular Volume 95.5 fL (80-100) Mean Corpuscular Hemoglobin 32.6 pg (25-34) Mean Corpuscular Hemoglobin Concent 34.2 g/dl (32-36) Platelet Count 387 K/uL (130-400) Mean Platelet Volume 10.5 fL (7.4-10.4) Neutrophils (%) (Auto) 64.4 % Lymphocytes (%) (Auto) 24.1 % Monocytes (%) (Auto) 8.7 % Eosinophils (%) (Auto) 2.3 % Basophils (%) (Auto) 0.2 % Neutrophils # (Auto) 3.68 K/uL (1.4-6.5) Lymphocytes # (Auto) 1.38 K/uL (1.2-3.4) Monocytes # (Auto) 0.50 K/uL (0.11-0.59) Eosinophils # (Auto) 0.13 K/uL (0-0.5) Basophils # (Auto) 0.01 K/uL (0-0.2) RDW Standard Deviation 46.4 fL (36.4-46.3) RDW Coefficient of Variation 13.3 % (11.5-14.5) Immature Granulocyte % (Auto) 0.3 % Immature Granulocyte # (Auto) 0.02 K/uL (0.00-0.02) Anion Gap 6.0 mmol/L (3-11) Est Creatinine Clear Calc Drug Dose 108.0 ml/min Estimated GFR () 118.1 Estimated GFR (Non- 101.9 BUN/Creatinine Ratio 7.9 (10-20) Calcium Level 9.3 mg/dl (8.5-10.1) Total Bilirubin 0.3 mg/dl (0.2-1) Direct Bilirubin mg/dl (0-0.2) Aspartate Amino Transf (AST/SGOT) 52 U/L (15-37) Alanine Aminotransferase (ALT/SGPT) 67 U/L (12-78) Alkaline Phosphatase 110 U/L (45-117) Total Protein 7.4 gm/dl (6.4-8.2) Albumin 3.3 gm/dl (3.4-5.0) Lipase 372 U/L (73-393) Chemistry Specimen Hemolysis Laboratory results reviewed by me Medications Administered Medications (Trade) Dose Ordered Sig/Mika Route Start Time Stop Time Status Last Admin Dose Admin Lorazepam (Ativan Tab) 1 mg NOW STAT SL 06/17/17 14:15 06/17/17 14:16 DC 06/17/17 14:23 1 MG Acetaminophen/ Hydrocodone Bitart ([place] 5/325 Tab) 1.5 tab NOW STAT PO 06/17/17 16:44 06/17/17 16:45 DC 06/17/17 16:54 1.5 TAB Lorazepam (Ativan Tab) 0.5 mg NOW STAT SL 06/17/17 17:37 06/17/17 17:38 DC 06/17/17 18:51 0.5 MG ED Course 1352: I spoke with Dr. De La Garza regarding the patient's case. He explained that the patient will need a three hour oral prep for her CT. 1356: The patient was evaluated in room A3. A complete history and physical exam was performed. 1415: Ordered Ativan Tab 1 mg Sl. 1644: Ordered [place] 5/325 Tab 1.5 tab PO. 1737: Ordered Ativan Tab 0.5 mg SL. 1951: I reevaluated the patient. Discussed results and discharge instructions: she verbalized understanding and agreement. The patient is ready for discharge. Medical Decision Triage Nursing notes reviewed. The patient's presentation and history were concerning for recent surgery and possible air in the urinary stream. Etiologies such as fistula, instrumentation air, infection, ischemia, as well as others were entertained. Patient was evaluated. Her abdominal examination was relatively benign. Her incisions appear to be healing well. Blood work was obtained. The patient had an unremarkable CBC, chemistry panel, and urinalysis. There is no evidence of infection. No leukocytosis. I discussed the case with radiology, Dr. De La Garza to best target her imaging. It was felt that IV and oral contrast CT imaging with a delayed oral prep would be the ideal start to workup. The patient was given a dose of [place] as well as Ativan and she was very anxious and she was due for a dose of her pain medication. The patient had this performed. She did very well. Her CT does not reveal any evidence of fistula. There is postsurgical changes in the pelvis. She had some tiny air in the bladder and in the pelvis. Given the recent surgery and instrumentation as well as Aquino catheter placement I suspect this is all normal postoperative findings. The patient had some inflammation-like appearance to the splenic flexure however this was mobilized for surgery. I did discuss the findings with Dr. Kenny Barragan general surgery. He felt that the signs were postoperative as well. He recommended following up in the office. As the patient is doing very well I discussed this with her and her significant other. She felt very comfortable with this. If she worsens in any way she will be back to the Emergency Room for reevaluation. By the evaluation outlined above other emergent etiologies such as those listed in the differential, as well as others, were deemed relatively unlikely. The patient was educated about the findings as listed above. All questions were answered and the patient was pleased with the treatment. Return instructions were outlined and the patient was discharged in stable condition. The patient was referred to general surgery this week for follow-up for a recheck of the current condition. Medication Reconcilliation Current Medication List: was personally reviewed by me Blood Pressure Screening Patient's blood pressure: Elevated blood pressure Blood pressure disposition: Elevated BP felt to be situational Impression Primary Impression: Symptoms involving urinary system Additional Impression: Status post laparoscopic-assisted sigmoidectomy Scribe Attestation The scribe's documentation has been prepared under my direction and personally reviewed by me in its entirety. I confirm that the note above accurately reflects all work, treatment, procedures, and medical decision making performed by me. Departure Information Dispostion Home / Self-Care Referrals Vi Soliz M.D. (PCP) Forms HOME CARE DOCUMENTATION FORM, IMPORTANT VISIT INFORMATION Patient Instructions My [facility] Additional Instructions Continue current medications. Follow-up with general surgery as scheduled. Return to the ER for worsening abdominal pain, vomiting, urinary issues, fevers , bloody stools, or as needed. Problem Qualifiers
== END 2017-06-17 20:00 | disposition home or self-care (01) ==
LOC: C.EDB 12:34 → C.EDA 20:00
DX: R39.9 Unspecified symptoms and signs involving the genitourinary system (principal); Z98.890 Other specified postprocedural states; Z83.49 Family history of other endocrine, nutritional and metabolic diseases; Z82.49 Family history of ischemic heart disease and other diseases of the circulatory system; Z87.891 Personal history of nicotine dependence

== ENCOUNTER → 2017-07-19 | Outpatient (CLI) | payer OTHER ==
--- NOTE | 2017-07-19 15:48 | MAMMOGRAPHY REPORT ---
BILATERAL DIGITAL DIAGNOSTIC MAMMOGRAM TOMOSYNTHESIS WITH CAD: 07/19/2017 CLINICAL HISTORY: History of right breast cancer status post lumpectomy and radiation therapy. The p atient reports continued right breast pain since her surgery and radiation. TECHNIQUE: Breast tomosynthesis in addition to standard 2D mammography was performed. Current study was also evaluated with a Computer Aided Detection (CAD) system. Bilateral CC and MLO 2-D and tomosy nthesis images and spot magnification right cc and ML views were obtained. COMPARISON: Comparison is made to exams dated: 01/16/2017 mammogram, 05/04/2016 mammogram, 05/09/2016 ul trasound, 05/09/2016 mammogram, 05/02/2015 mammogram, and 04/29/2014 mammogram - [facility]. BREAST COMPOSITION: There are scattered areas of fibroglandular density in both breasts. FINDINGS: Again noted are post surgical changes in the right anterior breast from prior lumpectomy, i ncluding stable density and architectural distortion at the surgical bed. Mild diffuse right breast skin and trabecular thickening is decreased. A linear scar marker denotes a scar on the right anteri or breast. The remainder of both breasts are stable compared to prior exams, without suspicious masses, calcific ations, or areas of architectural distortion noted. A biopsy marker clip is again noted within the l eft recommend follow-up diagnostic inferior anterior breast. IMPRESSION: ACR-BI-RADS CATEGORY 3: PROBABLY BENIGN Expected posttreatment changes in the right breast, with no mammographic evidence of malignancy in ei ther breast. Recommend diagnostic tomosynthesis mammograms of the right breast in 6 months to reeval uate post treatment changes. The patient has been verbally notified of the results. Approximately 10% of breast cancers are not detected with mammography. A negative mammographic report should not delay biopsy if a clinically suggestive mass is present. Prabha Abbasi M.D. ah/:07/19/2017 14:33:04 Superintendent Meter Tests: Keke JANG)(M), [facility] letter sent: Personal History 3 BI-RADS Code: ACR-BI-RADS Category 3: Probably Benign
== END | disposition home or self-care (01) ==
LOC: C.MAMM 13:45
PROVIDERS: ATTEND Physician Assistant Medical
DX: Z08 Encounter for follow-up examination after completed treatment for malignant neoplasm (principal); Z85.3 Personal history of malignant neoplasm of breast

== ENCOUNTER → 2017-08-09 | Outpatient (CLI) | payer OTHER ==
--- NOTE | 2017-08-09 13:59 | DIAGNOSTIC IMAGING REPORT ---
LEFT UPPER EXTREMITY VENOUS DOPPLER HISTORY: L FOREARM PAIN, R/O DVT COMPARISON STUDY: None. FINDINGS: The left internal jugular vein is patent. There is normal flow within the left subclavian vein. There is normal flow and compressibility within the left axillary, basilic, brachial, radial, and ulnar veins. The cephalic vein was not clearly visualized. IMPRESSION: No DVT within the left upper extremity. Electronically signed by: Dane Moreno M.D. 08/09/2017 1:58 PM Dictated Date/Time: 08/09/2017 1:55 PM
== END | disposition home or self-care (01) ==
LOC: C.ULTRBC 13:06
PROVIDERS: ATTEND Internal Medicine
DX: M79.632 Pain in left forearm (principal)

== ENCOUNTER → 2018-01-16 | Outpatient (CLI) | payer OTHER ==
[~2018-01-16] MED LIST changes: -HYDR-5688 PO; +VITA1CRE PO
[2018-01-16 13:47] VITALS: BP 98/65; PULSE 68; TEMP 37.2; O2SAT 95
--- NOTE | 2018-01-16 16:54 | Radiation Oncology Follow-Up ---
Radiation Oncology Follow-Up Date of Visit Jan 16, 2018. Reason For Visit 9 month follow-up Radiation Completion Date Hypofractionation 09/07/16 Diagnosis (1) Breast cancer Status: Resolved Onset Date: 05/15/2016 Histology Subtype: Ductal Stage: l (A) Permanent Comment: Abnormal right breast mammogram Status post ultrasound-guided needle biopsy 05/15/2016 revealing 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, progesterone receptor positive, HER-2/andre negative Status post needle localization lumpectomy and sentinel lymph node biopsy Stage pT1c pN0M0 Status post completion of radiation therapy 09/07/2016 received 5130 cGy utilizing hypo-fractionation. Last Edited By: Lindsay Goodrich on Sep 16, 2016 13:11 History of Present Illness Ms. Ramsey is without a family history of breast cancer. He has been followed with screening mammograms. At 2000 she underwent an aspiration of a subareolar nodule at the 10 to 11 o'clock position of the left breast revealing benign breast tissue and fragmented cyst. Specimen # [id number]. On 06/02/2015 she underwent a stereotactic biopsy of the left breast for breast calcifications to rule out fibrocystic changes. This revealed fibrocystic change with usual ductal hyperplasia. Case: [id number]. On 05/04/2016 patient underwent bilateral digital screening mammogram. This showed a focal area of possible architectural distortion in the right lateral breast at approximately 9 o'clock position seen until most synthesis images only. Spot compression total synthesis views and possible breast ultrasound were recommended for further evaluation. On 05/09/2016 patient underwent a unilateral right digital diagnostic mammogram and targeted right breast ultrasound. This showed persistent local architectural distortion in the upper outer anterior right breast with an ill-defined hypoechoic 7 mm mass seen in the 9:00 right breast on ultrasound. This was indeterminate but warranted further evaluation with an ultrasound-guided needle biopsy. It was given a BI-RADS Category 4B. On 2015 the patient underwent an ultrasound-guided biopsy of the right breast lesion. This revealed an infiltrative ductal adenocarcinoma grade 1 with no lymphovascular or perineural invasion. Estrogen receptors were positive, progesterone receptors were positive and HER-2/andre was negative by immunohistochemistry and negative by amplification by FISH. Case: [id number]. Patient was seen by Dr. Liudmila Syed who discussed treatment options with the patient. Bilateral breast MRIs were recommended and performed on 05/28/2016. In the left breast no suspicious masses or nyx-fjpu-iuyz enhancement was seen. In the right breast at the anterior depth at 7 o'clock position was an irregular shaped and spiculated marginated mass measuring 1.0 x 0.7 x 0.9 cm. This corresponded to the biopsy-proven infiltrating ductal carcinoma. No other masslike or scr-qdfy-errp enhancement was seen. On 06/27/2016 the patient underwent a right breast partial mastectomy and sentinel node biopsy. The sentinel node was negative for metastatic disease. 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 The tumor measured 1.3 x 1.2 x 1.0 cm. There was evidence of extensive intraductal component. The margins were evaluated. The margins for the invasive carcinoma was negative with the closest margin posterior margin at 4 mm. The margins for the DCIS were also negative with the closest margin being the anterior margin at 1 mm. The final stage was therefore a pT1c pN0(sn-), ER positive, PA positive, HER-2/andre negative. Patient is been seen by Dr. Misha Rodriguez for evaluation of the role of adjuvant therapy. He discussed the role of adjuvant hormonal therapy with the patient. He recommended external beam radiation followed by 5 years of tamoxifen. He did note that the Prosigna assay was unable to be performed. It is for this reason that we were asked to see the patient in referral to discuss with her the role of adjuvant radiation. She completed radiation therapy 09/07/2016. She received 5130 cGy utilizing hypo-fractionation. Interim History Over the past 9 months she continues to have discomfort in the breast if this is accidentally bumped. She notices it if her cat or dog puts pressure against the breast area. With her last mammogram she had severe pain while having the study performed. She has noted no swelling or redness. She has had no swelling of her arm. She has noted no masses. She is very concerned about undergoing mammography which is scheduled for tomorrow. We discussed the previous mammogram which did show that she has mild diffuse right breast skin and trabecular thickening. She is very concerned about how uncomfortable or painful this may be. She is anxious and upset worrying about having the procedure completed. She is scheduled for a diagnostic mammogram. She has been attending breast cancer support groups. She wonders if she has a usual amount of pain compared to others. Allergies Coded Allergies: Adhesives (Verified Allergy, Mild, Tape blisters, 06/17/17) Codeine (Verified Allergy, Mild, nausea/vomiting, 06/17/17) Home Medications Scheduled Anastrozole (Anastrozole), 1 TAB PO QAM Cholecalciferol (Vitamin D3), 1 APPL PO QAM Turmeric (Curcuma Longa) (Turmeric), 1 TAB PO QAM Vitamin E (Topical) (Vitamin E), 1 TAB PO DAILY [Liver Complex], 1,000 MG PO QAM [[place] Tail], 1 CAP PO QAM Review of Systems Gastrointestinal: Symptoms: WNL Oral: Symptoms: No Problems Respiratory: Symptoms: WNL Urinary: Symptoms: WNL Skin: Symptoms: No Problems Other Skin Symptoms: Small area of skin discoloration on rt breast at nipple level-tender too Breast: Right Upper Arm Measurement: 28.5 Right Mid Arm Measurement: 24.5 Right Wrist Measurement: 15.5 Left Upper Arm Measurement: 27.3 Left Mid Arm Measurement: 23.5 Left Wrist Measurement: 15.5 Arm Dominence: Right Physical Exam Vital Signs Date Time Temp Pulse Resp B/P (MAP) Pulse Ox O2 Delivery O2 Flow Rate FiO2 01/16/18 13:47 37.2 68 12 98/65 95 Fatigue: None General Appearance: + mild distress (Anxious and intermittently crying throughout the visit.) Eyes: normal inspection, EOMI ENT: normal ENT inspection, hearing grossly normal Neck: no adenopathy, thyroid normal Respiratory/Chest: lungs clear, no respiratory distress, no accessory muscle use Breast: Breast examination reveals well-healed incisions of the right breast. There is very slight telangiectasia. There are mild fibrous changes. There is diffuse tenderness throughout the breast. There is slight edema. Using the Balsam score cosmesis she has a good outcome. The left breast showed no masses or tenderness and no axillary adenopathy. Cardiovascular: regular rate, rhythm, no gallop, no murmur Extremities: no pedal edema Neurologic/Psychiatric: no motor/sensory deficits, alert Skin: warm/dry Lymphatic: no adenopathy Pain Management Patient Reports Pain: No Initial Pain Intensity: 0.0 Pain Management Plan She did not give her discomfort a pain level. This occurs only if it is accidentally bumped. Laboratory Laboratory Results: not applicable Pathology Pathology Results: not applicable Imaging Imaging Studies: were reviewed, and pertinent findings noted below Imaging Comments Patient: DOUG RAMSEY [facility] Rec: [id number] Address1: [address] [place] [address] Address2: [address] Acct ID: [id number] Date: 1965 Sex: F Ref Phy: Lindsay Goodrich PA-C Att Phy: Lindsay Goodrich PA-C Leslie Phy: Vi Soliz M.D. Inter Phy: Prabha Abbasi MD [facility] Zip: [place] [address] SC: [id number] Report #: [id number] Manager Purchasing: [place] Diagnosis: 6 MO F/U BILATERAL DUE Service Date: 07/19/17 MNE: [id number] Ordering Dr: Lindsay Goodrich PA-C CC: Lindsay Goodrich PA-C CONF: DICTATED BY: Prabha Abbasi MD MAMMOGRAPHY REPORT BILATERAL DIGITAL DIAGNOSTIC MAMMOGRAM TOMOSYNTHESIS WITH CAD: 07/19/2017 CLINICAL HISTORY: History of right breast cancer status post lumpectomy and radiation therapy. The patient reports continued right breast pain since her surgery and radiation. TECHNIQUE: Breast tomosynthesis in addition to standard 2D mammography was performed. Current study was also evaluated with a Computer Aided Detection (CAD ) system. Bilateral CC and MLO 2-D and tomosynthesis images and spot magnification right cc and ML views were obtained. COMPARISON: Comparison is made to exams dated: 01/16/2017 mammogram, 05/04/2016 mammogram, 05/09/2016 ultrasound, 05/09/2016 mammogram, 05/02/2015 mammogram, and 04/29/2014 mammogram - [facility]. BREAST COMPOSITION: There are scattered areas of fibroglandular density in both breasts. FINDINGS: Again noted are post surgical changes in the right anterior breast from prior lumpectomy, including stable density and architectural distortion at the surgical bed. Mild diffuse right breast skin and trabecular thickening is decreased. A linear scar marker denotes a scar on the right anterior breast. The remainder of both breasts are stable compared to prior exams, without suspicious masses, calcifications, or areas of architectural distortion noted. A biopsy marker clip is again noted within the left recommend follow-up diagnostic inferior anterior breast. IMPRESSION: ACR-BI-RADS CATEGORY 3: PROBABLY BENIGN Expected posttreatment changes in the right breast, with no mammographic evidence of malignancy in either breast. Recommend diagnostic tomosynthesis mammograms of the right breast in 6 months to reevaluate post treatment changes. The patient has been verbally notified of the results. Approximately 10% of breast cancers are not detected with mammography. A negative mammographic report should not delay biopsy if a clinically suggestive mass is present. Prabha Abbasi M.D. ah/:07/19/2017 14:33:04 Wire Preparation Machine Tender: Keke JANG)(M), [facility] letter sent: Personal History 3 BI-RADS Code: ACR-BI-RADS Category 3: Probably Benign Dictated by: Prabha Abbasi MD Signed by: Prabha Abbasi MD Assessment & Plan Plan: Tomorrow she is scheduled for mammography. We had a lengthy discussion about pain levels. This is a subjective manner. Everybody is different. We discussed that some patients will have severe pain others no pain whatsoever. She is very anxious and concerned about having discomfort while undergoing the mammogram. I recommend that she take ibuprofen tonight and tomorrow morning. I gave her a prescription for lorazepam 0.5 mg 1 to be taken prior to the mammogram. I have asked her to have someone drive her to and from her mammogram. We discussed the type of mammogram. If this is a diagnostic mammogram she may have 4 views as opposed to a screening mammogram that will require 2. She stated that she may discuss this with the database software technician or the radiologist. We asked her to return to our office in 1 year. She may call if she has any questions or concerns in the interim. She will continue following with the breast cancer support group. Total Time In Follow-Up I spent 25 minutes speaking to the patient and performing examination. I spent 15 minutes reviewing information and completing this note. Copy To Liudmila Syed MD; Balbir Soliz M.D.; Vi Soliz M.D. Problem Qualifiers (1) Breast cancer: Breast location: central portion of breast Estrogen receptor status: positive Patient sex: female Laterality: right Qualified Codes: C50.111 - Malignant neoplasm of central portion of right female breast; Z17.0 - Estrogen receptor positive status [ER+]
== END | disposition home or self-care (01) ==
LOC: C.ONC 13:25
PROVIDERS: ATTEND Physician Assistant Medical
DX: Z08 Encounter for follow-up examination after completed treatment for malignant neoplasm (principal); Z92.3 Personal history of irradiation; Z85.3 Personal history of malignant neoplasm of breast

== ENCOUNTER → 2018-01-17 | Outpatient (CLI) | payer OTHER ==
[~2018-01-17] MED LIST changes: -EVENCAP6 PO; -PRLSR20 PO; -[UNRECOGNIZED DRUG - OTHER] PO
--- NOTE | 2018-01-20 12:44 | MAMMOGRAPHY REPORT ---
UNILATERAL RIGHT DIGITAL DIAGNOSTIC MAMMOGRAM TOMOSYNTHESIS: 01/17/2018 CLINICAL HISTORY: History of right breast cancer status post lumpectomy and radiation therapy. The p atient reports continued right breast pain since her surgery and radiation. TECHNIQUE: Breast tomosynthesis in addition to standard 2D mammography was performed. Right CC and MLO 2D and tomosynthesis images and spot magnification right CC and ML views were obtained. COMPARISON: Comparison is made to exams dated: 07/19/2017 mammogram, 01/16/2017 mammogram, 05/15/2016 m ammogram, 05/15/2016 ultrasound biopsy, 05/09/2016 ultrasound, and 05/09/2016 mammogram - [facility]. BREAST COMPOSITION: There are scattered areas of fibroglandular density in the right breast. FINDINGS: There are stable postsurgical changes in the right anterior breast from prior lumpectomy, i ncluding stable density and architectural distortion at the surgical bed. Mild diffuse right breast skin thickening is decreased compared to the December 2016 exam. The remainder of the right breast is s table compared to prior exams, without suspicious masses, calcifications, or areas of architectural d istortion noted. IMPRESSION: ACR-BI-RADS CATEGORY 3: PROBABLY BENIGN Posttreatment changes in the right breast, with no mammographic evidence of malignancy in the right b reast. Recommend bilateral diagnostic tomosynthesis mammograms in 6 months, to reevaluate right bang st posttreatment changes and for routine mammography of the left breast. The patient has been verbally notified of the results. Approximately 10% of breast cancers are not detected with mammography. A negative mammographic report should not delay biopsy if a clinically suggestive mass is present. Prabha Abbasi M.D. /:01/17/2018 10:00:26 Transfer Professor: Isabela Dee [facility] letter sent: Personal History 3 BI-RADS Code: ACR-BI-RADS Category 3: Probably Benign
== END | disposition home or self-care (01) ==
LOC: C.MAMM 09:30
PROVIDERS: ATTEND Nurse Practitioner
DX: N64.4 Mastodynia (principal); Z85.3 Personal history of malignant neoplasm of breast

== ENCOUNTER 2024-12-04 10:21 | Inpatient (IN) ==
[2024-12-04 11:40] LABS: Basophils # (auto) 0.05 K/uL (0.00-0.20); Basophils % (auto) 0.4 %; Eosinophils # (auto) 0.03 K/uL (0.00-0.50); Eosinophils % (auto) 0.3 %; Hematocrit (blood only) 39.5 % (37.0-47.0); Hemoglobin 13.2 g/dl (12.0-16.0); Immature Granulocytes # (auto) 0.05 K/uL (0.01-0.20); Immature Granulocytes % (auto) 0.4 %; Lymphocytes # (auto) 0.79 K/uL (1.20-3.40); Lymphocytes % (auto) 6.6 %; Mean Corpuscular Hemoglobin 30.7 pg (25.0-34.0); Mean Corpuscular Hgb Conc 33.4 g/dL (32.0-36.0); Mean Corpuscular Volume 91.9 fL (80.0-100.0); Mean Platelet Volume 10.9 fL (9.4-12.4); Monocytes # (auto) 1.12 K/uL (0.11-0.59); Monocytes % (auto) 9.4 %; Neutrophils # (auto) 9.91 K/uL (1.40-6.50); Neutrophils % (auto) 82.9 %; Platelet Count 266 K/uL (130-400); RDW Standard Deviation 43.6 fL (36.4-46.3); White Blood Count 11.95 K/ul (4.8-10.8)
--- NOTE | 2024-12-04 11:41 | Emergency Department Note ---
Impression & Plan Diverticulitis of large intestine with abscess, Abdominal pain, Fever, Nausea, Leukocytosis ED Provider Note CHIEF COMPLAINT: HISTORY OF PRESENTING ILLNESS: The patient is a 59-year-old female with a PMH of diverticulitis, pulmonary embolism, migraines, and breast cancer who presents to the emergency department with her friend reporting abdominal pain for 3 days. She also confirms having a fever this morning. Describes the pain as a stabbing pain that comes and goes. Denies vomiting, diarrhea, chest pain, shortness of breath, urinary symptoms. She states that she has not taken anything for pain today. Confirms that this pain does not feel similar to her diverticulitis pain before. REVIEW OF SYSTEMS: See HPI for pertinent positives and pertinent negatives. ALLERGIES: Adhesive MEDICATIONS: See below PAST MEDICAL HISTORY: See below PHYSICAL EXAM: VITALS: Vitals are noted on the nurse's note and reviewed by myself. Patient is febrile -38.5 C. Vital signs stable. GENERAL: 59-year-old female, holding her abdomen in pain, tearful on exam, in no acute distress, nondiaphoretic, well-developed well-nourished. SKIN: Capillary refill less than 2 seconds. HEENT: Normocephalic. PERRLA. EOMI. Nares patent. Mucous membranes moist. Neck is supple without nuchal rigidity. HEART: Regular rate and rhythm without murmurs gallops or rubs. LUNGS: Clear to auscultation bilaterally without wheezes, rales or rhonchi. No retractions or accessory muscle use. ABDOMEN: Diffuse tenderness upon palpation. No guarding or rebound tenderness. Patient confirms it is painful without palpation. Positive bowel sounds x 4. No masses or organomegaly appreciated. Ferrari sign negative. MUSCULOSKELETAL: No gross musculoskeletal defects. NEURO: Patient was alert and oriented. No focal neurological deficits. DIFFERENTIAL DIAGNOSIS: appendicitis, diverticulitis, bowel obstruction, inflammatory bowel disease, renal colic, PUD, biliary pathology, pancreatitis, mesenteric ischemia, aortic pathology, infection, genitourinary, UTI, perforated viscus, among others. ED COURSE AND MEDICAL DECISION MAKING: HISTORY FROM INDEPENDENT HISTORIAN: The patient herself and her friend. MEDICATIONS GIVEN: Zosyn 4.5 g IV, Toradol 15 mg IV, Tylenol 1000 mg IV MONITOR: Continuous director of cardiac cath lab: Order was placed for continuous director of cardiac cath lab. Patient was placed on the director of cardiac cath lab and continuous pulse ox. Patient was noted to be in normal sinus rhythm at an initial rate of 87 bpm per my interpretation. EKG: EKG was interpreted by myself as normal sinus rhythm. No obvious sign of arrhythmias. No ST or T wave abnormalities. When compared to EKG from 10/28/2015 no significant changes found. Patient denies chest pain, palpitations, shortness of breath. INTERPRETATION OF LABS: I interpreted the labs with full lab results as below in the lab section of this note. Pertinent lab results discussed in the MDM section below. INTERPRETATION OF IMAGING: Imaging studies were interpreted by myself and read by radiology as per the imaging section of this note. CT abdomen pelvis IV contrast -extensive inflammation centered on the hepatic flexure of the colon consistent with severe acute diverticulitis. No extraluminal gas. Rim-enhancing fluid collection likely within the wall of the colon measuring 7 x 1.4 cm favors an intramural abscess. Follow-up colonoscopy once symptoms resolve is recommended. ESCALATION OF CARE CONSIDERED: Escalation of care was considered due to the patient's severe abdominal pain and history of diverticulitis/elective bowel resection. On physical exam the patient is febrile. CT scan shows severe diverticulitis and intramural abscess. Lab results showed leukocytosis. Due to the patient's condition she was admitted to the hospitalist team. CONSULTATIONS: General surgery - Shaniqua Guthrie - I had a discussion with general surgery regarding the patient's history of diverticulitis with a bowel resection. I was unable to find any record of the surgery with case management and the patient confirms surgery was done here at [facility]. I explained the patient's presentation and the management that we had done in the emergency room up until this point. She agrees to come and see the patient herself for evaluation and included a note. She agrees upon admission to medicine and nonoperative management with IV antibiotics and bowel rest for initial treatment. Recommends outpatient colonoscopy in 6 to 8 weeks. [facility] Hospitalist - Sarahi Roque admitting attending -[facility] the patient's presentation, treatment thus far, and CT scan result findings. They agreed upon patient admission and wanted to get general surgery involved in her care. They were informed of my discussion with general surgery as well as read the note that was provided by Shaniqua Guthrie. The patient was admitted to medicine. MDM SUMMARY: The patient is a 59-year-old female with a PMH of diverticulitis and bowel resection who presents emergency department due to diffuse abdominal pain for 3 days and a fever that began this morning. Describes the pain as a stabbing pain that comes and goes. Denies vomiting, diarrhea, chest pain, shortness of breath. States she has not taken anything for pain. On physical exam she is holding her abdomen in discomfort and is tearful. Chest auscultation reveals regular rate and rhythm without murmurs appreciated. Chest is clear to auscultation bilaterally without wheezing rhonchi or rales. The patient's abdomen is diffusely tender upon palpation. The abdomen is soft without any notable masses. There is no rash on the skin. Patient confirms the abdominal pain is constant without any palpation. Patient is febrile on exam. CBC, CMP, lipase, , D-dimer, CT abdomen pelvis were ordered. Patient was given Toradol IV for pain management. Lab work resulted showing leukocytosis WBC elevated 11.95. RBC normal 4.30. No sign of anemia. D-dimer normal 360. Sodium 135. No significant electrolyte abnormalities. AST elevated 56 ALT elevated 70. Lipase normal 52. negative. Patient was informed of all of her laboratory results. CT scan abdomen and pelvis showed extensive inflammation of the hepatic flexure of the colon showing a severe acute diverticulitis. There was also a an area of fluid collection in the colon favoring an intramural abscess. Patient was notified of these findings and was started on antibiotics. 4.5 g Zosyn was given. I reached out to general surgery and [facility] hospitalist team for discussion regarding the patient's care and admission. Those consultations can be seen in detail above. I had a thorough discussion with the patient regarding that it was not safe to send her home due to her CT findings, leukocytosis, and that she is febrile. She agrees to admission and IV antibiotics. The patient was admitted to the medicine team in stable condition and agreed to the treatment plan outlined above. The remaining portions of her care were determined by the hospitalist team and further pain management was ordered by the general surgery team. DIAGNOSIS: Diverticulitis of large intestine with abscess, abdominal pain, fever, nausea, leukocytosis The chart was completed utilizing [employer] voice recognition software. Grammatical errors, random word insertions, pronoun errors, and incomplete sentences are an occasional consequence of this system due to software limitations, ambient noise, and hardware issues. Any formal questions or concerns about the content, text, or information contained within the body of this dictation should be directly addressed to the provider for clarification. 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, progesterone receptor positive, HER-2/andre negative Status post needle localization lumpectomy and sentinel lymph node biopsy Stage pT1c pN0M0 Status post completion of radiation therapy 09/07/2016 received 5130 cGy utilizing hypo-fractionation." On 07/24/16 14:05 Lindsay Goodrich wrote "Abnormal right breast mammogram Status post ultrasound-guided needle biopsy 05/15/2016 revealing 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, progesterone receptor positive, HER-2/andre negative Status post needle localization lumpectomy and sentinel lymph node biopsy Stage pT1c pN0M0" Hx of diverticulitis of colon Body aches Surgical History Hx of foot surgery Hx of adenoidectomy History of esophagogastroduodenoscopy (EGD) History of colonoscopy H/O lumpectomy History of colon resection Social History Smoking Status: Former smoker Hx Alcohol Use: Yes (Recovery) Hx Substance Use: Yes Preferred Language: Guyanese Communication Ability: Effective Pantry Goods Maker Required: No Beliefs That Will Affect Care: None Current Living Situation: Alone 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 [employer] Feels Safe at Home: Yes Allergies Allergies Allergy/AdvReac Type Severity Reaction Status Date / Time adhesive Allergy Mild Tape Verified 12/04/24 14:15 blisters Home Meds Home Medications Medication Instructions Recorded Confirmed turmeric 400 mg capsule 400 mg PO DAILY ##0 03/03/17 12/04/24 cholecalciferol (vitamin D3) 25 25 mcg PO DAILY 30 days #0 tabs 04/16/17 12/04/24 mcg (1,000 unit) tablet (Vitamin D3) [id number]-gkemjajvsamsk-kvilirtr 250 1 tab PO Q6H PRN Migraine Headache 02/14/21 12/04/24 mg-250 mg-65 mg tablet (Excedrin Extra Strength) glucosamine 116 mg-chondroitin 100 1 cap PO DAILY 03/09/21 12/04/24 mg-dietary supplement #25 capsule atorvastatin 20 mg tablet 20 mg PO QAM 12/04/24 12/04/24 bupropion HCl 300 mg 24 hr tablet, 300 mg PO QAM 12/04/24 12/04/24 extended release dextroamphetamine-amphetamine ER 5 10 mg PO QAM 12/04/24 12/04/24 mg 24hr capsule,extend release levothyroxine 25 mcg tablet 25 mcg PO DAILYBB 12/04/24 12/04/24 Results & Data (ED) Vital Signs Vital Signs - 24 hr 12/04/24 10:20 12/04/24 12:20 12/04/24 14:19 Temperature 36.6 C 38.5 C H Temperature Source Temporal Artery Scan Oral Pulse Rate 102 H Pulse Rate [Radial] 100 H 94 H Pulse Rhythm [Radial] Regular Respiratory Rate 18 18 18 Respiratory Effort / Characteristics Non-Labored Non-Labored Respiratory Depth Normal Normal Respiratory Pattern Regular Blood Pressure 103/70 Blood Pressure [Left Arm] 108/76 96/67 L Blood Pressure Mean 81 Blood Pressure Mean [Left Arm] 86 76 Pulse Oximetry 100 100 97 Oxygen Delivery Method Room Air Room Air Sepsis Recent Fever Within 48 Hours No Sepsis New/Unexplained Change in Mental Status N/A Sepsis Action Taken by Nursing No Action Required 12/04/24 14:30 Temperature Temperature Source Pulse Rate Pulse Rate [Radial] 94 H Pulse Rhythm [Radial] Regular Respiratory Rate 18 Respiratory Effort / Characteristics Non-Labored Respiratory Depth Normal Respiratory Pattern Regular Blood Pressure Blood Pressure [Left Arm] 105/67 Blood Pressure Mean Blood Pressure Mean [Left Arm] 79 Pulse Oximetry 95 Oxygen Delivery Method Room Air Sepsis Recent Fever Within 48 Hours Sepsis New/Unexplained Change in Mental Status Sepsis Action Taken by Nursing Laboratory Data 12/04/24 11:20 12/04/24 11:20 Lab Results 12/04/24 12/04/24 Range/Units 11:20 12:36 WBC 11.95 H (4.8-10.8) K/ul RBC 4.30 (4.20-5.40) M/uL Hgb 13.2 (12.0-16.0) g/dl Hct 39.5 (37.0-47.0) % MCV 91.9 (80.0-100.0) fL MCH 30.7 (25.0-34.0) pg MCHC 33.4 (32.0-36.0) g/dL RDW Std Deviation 43.6 (36.4-46.3) fL RDW Coeff of Chidi 13.0 (11.5-14.5) % Plt Count 266 (130-400) K/uL MPV 10.9 (9.4-12.4) fL Immature Gran % (Auto) 0.4 % Neut % (Auto) 82.9 % Lymph % (Auto) 6.6 % Lassen % (Auto) 9.4 % Eos % (Auto) 0.3 % Baso % (Auto) 0.4 % Neut # (Auto) 9.91 H (1.40-6.50) K/uL Lymph # (Auto) 0.79 L (1.20-3.40) K/uL Lassen # (Auto) 1.12 H (0.11-0.59) K/uL Eos # (Auto) 0.03 (0.00-0.50) K/uL Baso # (Auto) 0.05 (0.00-0.20) K/uL Immature Gran # (Auto) 0.05 (0.01-0.20) K/uL D-Dimer 360 (0-500) ug/L FEU Sodium 135 L (136-145) mmol/L Potassium 4.3 (3.5-5.1) mmol/L Chloride 102 (98-107) mmol/L Carbon Dioxide 26 (21-32) mmol/L Anion Gap 7 (3-11) BUN 12 (6-23) mg/dl Creatinine 0.76 (0.6-1.2) mg/dl Est Cr Clr Drug Dosing Not Reportable eGFR 89.09 BUN/Creatinine Ratio 15.8 (10-20) Glucose 99 (70-99(Fasting)) mg/dl Calcium 9.9 (8.6-10.3) mg/dl Total Bilirubin 0.6 (0.2-1.0) mg/dl AST 56 H (13-39) U/L ALT 70 H (7-52) U/L Alkaline Phosphatase 70 (34-104) U/L Total Protein 7.5 (6.0-8.3) gm/dl Albumin 4.3 (3.4-5.0) gm/dl Globulin 3.2 (2.5-4.0) gm/dl Albumin/Globulin Ratio 1.3 (0.9-2) Lipase 52 (11-82) U/L HCG, Qual Cancelled Negative Administered Medications Acetaminophen (Ofirmev) 1,000 mg in 100 mls @ 400 mls/hr IV Q8H PRN PRN Reason: Pain or Fever Stop: 12/07/24 14:19 Last Infusion: 12/04/24 16:29 Dose: Infused Documented By: Admin: 12/04/24 15:20 Dose: 400 mls/hr Documented By: PEYTON Lactated Ringer's (Lr) 1,000 mls @ 80 mls/hr IV .[id number] AGUILA Stop: 12/05/24 17:13 Last Admin: 12/04/24 17:48 Dose: 80 mls/hr Documented By: BS Piperacillin Sod/Tazobactam Sod (Zosyn) 4.5 gm in 100 mls @ 25 mls/hr IV Q8H [facility]; Protocol Stop: 12/14/24 18:59 Last Admin: 12/04/24 20:00 Dose: 25 mls/hr Documented By: MG Morphine Sulfate (Morphine Sulfate 2 Mg/Ml Carp) 2 mg IV Q3H PRN PRN Reason: Pain Stop: 12/18/24 14:19 Last Admin: 12/04/24 20:55 Dose: 2 mg Documented By: MG Morphine Sulfate (Morphine Sulfate 4 Mg/Ml 1 Ml Carp\\Vial) 4 mg IV Q3H PRN PRN Reason: Severe Pain (Scale 7, 8, 9,10) Stop: 12/18/24 14:19 Last Admin: 12/04/24 17:20 Dose: 4 mg Documented By: PEYTON Discontinued Medications Piperacillin Sod/Tazobactam Sod (Zosyn) 4.5 gm in 100 mls @ 200 mls/hr IV NOW ONE; Protocol Stop: 12/04/24 13:47 Last Infusion: 12/04/24 14:36 Dose: Infused Documented By: Admin: 12/04/24 14:05 Dose: 200 mls/hr Documented By: JOHNNIE Sodium Chloride (Nss) 500 mls @ 999 mls/hr IV .Q31M ONE Stop: 12/04/24 16:58 Last Infusion: 12/04/24 17:13 Dose: Infused Documented By: Admin: 12/04/24 16:29 Dose: 999 mls/hr Documented By: PEYTON Ioversol (Optiray 320 100ml) 94 ml IV ONCE ONE Stop: 12/04/24 12:17 Last Admin: 12/04/24 12:17 Dose: 94 ml Documented By: LIONEL Ketorolac Tromethamine (Ketorolac Tromethamine 15 Mg/Ml Vial) 15 mg IV NOW STA Stop: 12/04/24 11:52 Last Admin: 12/04/24 12:44 Dose: 15 mg Documented By: JOHNNIE Miscellaneous (Patient's Height &/Or Weight Needed) 1 each N/A Q2H STA Stop: 12/04/24 14:23 Last Admin: 12/04/24 14:37 Dose: 1 each Documented By: JOHNNIE Imaging Data Radiologist's Impression: Abdomen/Pelvis CT 12/04/24 11:51 CT OF THE ABDOMEN AND PELVIS WITH CONTRAST CLINICAL HISTORY: Abdominal pain. COMPARISON STUDY: CT of the abdomen and pelvis July 15, 2022. TECHNIQUE: Following IV administration of 94 mL of Optiray, axial images of the abdomen and pelvis were obtained from the lung bases to the proximal femurs. Images were reviewed in the axial, sagittal, and coronal planes. IV contrast was administered without complication. Automated exposure control was utilized for the study. A dose lowering technique was utilized adhering to the principles of ALARA. CT DOSE: 713.68 mGy.cm FINDINGS: Lung bases are unremarkable. There is a moderate sized hiatal hernia. Liver, spleen, adrenal glands, kidneys and pancreas are normal. There is no biliary or pancreatic ductal dilatation. There is no hydronephrosis. There is no evidence for a bowel obstruction. The appendix is normal. There is a small amount of fluid within the pelvis. Extensive right upper quadrant inflammation is centered on the hepatic flexure of the colon. Colonic diverticulosis is present. Marked wall thickening of the hepatic flexure of the colon is noted with extensive adjacent inflammation. There is no free air. There is an elongated rim-enhancing fluid collection likely within the wall of the colon which measures approximately 7 x 1.4 cm. No drainable fluid collection is identified. No additional sites of inflammation are identified. Status post sigmoid resection. IMPRESSION: Extensive inflammation centered on the hepatic flexure of the colon consistent with severe acute diverticulitis. No extraluminal gas. Elongated rim- enhancing fluid collection likely within the wall of the colon which measures approximately 7 x 1.4 cm. This favors an intramural abscess. No drainable fluid collection. Follow-up colonoscopy once symptoms resolve is recommended to exclude the less likely possibility of an underlying colonic lesion. ACT 112: Negative or not required by law. Electronically signed by: Diego De La Garza M.D. 12/04/2024 12:40 PM Discharge Plan Visit Data Chief Complaint: Abdominal Pain Stated Complaint: AB PAIN, FEVER ED Provider: Enma Soliz ED Midlevel Provider: Zayda Doshi Discharge Problem: Diverticulitis of large intestine with abscess, Abdominal pain, Fever, Nausea, Leukocytosis Patient Disposition: Admitted As Inpatient Discharge Instructions Interventions: ED Discharge Assessment Last Done: 12/04/24 17:14 Discharge Problem: Diverticulitis of large intestine with abscess Qualifiers: Diverticulitis bleeding: unspecified bleeding status Qualified Code(s): K57.20 - Diverticulitis of large intestine with perforation and abscess without bleeding Abdominal pain Qualifiers: Abdominal location: generalized Qualified Code(s): R10.84 - Generalized abdominal pain Fever Qualifiers: Fever type: unspecified Qualified Code(s): R50.9 - Fever, unspecified Leukocytosis Qualifiers: Leukocytosis type: unspecified Qualified Code(s): D72.829 - Elevated white blood cell count, unspecified
[2024-12-04 12:01] LABS: Alanine Aminotransferase 70 U/L (7-52); Albumin Globulin Ratio 1.3 (0.9-2); Albumin Level 4.3 gm/dl (3.4-5.0); Alkaline Phosphatase 70 U/L (34-104); Anion Gap 7 (3-11); Aspartate Aminotransferase 56 U/L (13-39); BUN Creatinine Ratio 15.8 (10-20); Bilirubin,Total 0.6 mg/dl (0.2-1.0); Blood Urea Nitrogen 12 mg/dl (6-23); Calcium 9.9 mg/dl (8.6-10.3); Carbon Dioxide 26 mmol/L (21-32); Chloride 102 mmol/L (98-107); Globulin 3.2 gm/dl (2.5-4.0); Glucose 99 mg/dl (70-99(Fasting)); Lipase 52 U/L (11-82); Potassium 4.3 mmol/L (3.5-5.1); Sodium 135 mmol/L (136-145); Total Protein 7.5 gm/dl (6.0-8.3)
[2024-12-04] MEDS: OPTIRAY 320 100ml IV ONE (12:17)
--- NOTE | 2024-12-04 12:41 | CT Scan Report ---
CT OF THE ABDOMEN AND PELVIS WITH CONTRAST CLINICAL HISTORY: Abdominal pain. COMPARISON STUDY: CT of the abdomen and pelvis July 15, 2022. TECHNIQUE: Following IV administration of 94 mL of Optiray, axial images of the abdomen and pelvis we re obtained from the lung bases to the proximal femurs. Images were reviewed in the axial, sagittal, and coronal planes. IV contrast was administered without complication. Automated exposure control wa s utilized for the study. A dose lowering technique was utilized adhering to the principles of ALARA . CT DOSE: 713.68 mGy.cm FINDINGS: Lung bases are unremarkable. There is a moderate sized hiatal hernia. Liver, spleen, adrena l glands, kidneys and pancreas are normal. There is no biliary or pancreatic ductal dilatation. There is no hydronephrosis. There is no evidence for a bowel obstruction. The appendix is normal. There is a small amount of fluid within the pelvis. Extensive right upper quadrant inflammation is centered o n the hepatic flexure of the colon. Colonic diverticulosis is present. Marked wall thickening of the hepatic flexure of the colon is noted with extensive adjacent inflammation. There is no free air. The re is an elongated rim-enhancing fluid collection likely within the wall of the colon which measures approximately 7 x 1.4 cm. No drainable fluid collection is identified. No additional sites of inflamm ation are identified. Status post sigmoid resection. IMPRESSION: Extensive inflammation centered on the hepatic flexure of the colon consistent with crystal re acute diverticulitis. No extraluminal gas. Elongated rim-enhancing fluid collection likely within the wall of the colon which measures approximately 7 x 1.4 cm. This favors an intramural abscess. No drainable fluid collection. Follow-up colonoscopy once symptoms resolve is recommended to exclude the less likely possibility of an underlying colonic lesion. ACT 112: Negative or not required by law. Electronically signed by: Diego De La Garza M.D. 12/04/2024 12:40 PM
[2024-12-04] MEDS: KETOROLAC TROMETHAMINE 15 MG/ML VIAL IV STA (12:44)
[2024-12-04 13:24] LABS: Pregnancy Test, Serum Negative (Negative)
[2024-12-04 13:44] LABS: D Dimer 360 ug/L FEU (0-500)
--- OUTSIDE RECORDS SUMMARY | 2024-12-04 14:01 | External Medical Summary | Summary of Care ---
Author Name Unknown Organization [facility] Address [address] [place] [address] Phone [phone] Care Team Providers Care Senior Scheduler Name Role Phone Mariya Mario JONA Primary Care Provider [phone]- [phone] Encounter Details Date Type Department Care Team (Late st Contact Info) Description 11/18/2024 Population Health External Data Unspecified Department Allergies Active Allergy Reactions Criticality Noted Date Comments Adhesive Tape 05/29/2016 Blister from core bx done 04/2016 Hydromorphone 08/07/2022 Page unwell documented as of this encounter (statuses as of 11/18/2024) Medications Levothyroxine Sodium 25 MCG Oral Tablet (Levoxyl)Indicatio ns:Subclinical hypothyroidism Take 1 Tablet by mouth in the morning. (at least 30 min prior to breakfast or other meds). 30 Tablet 11 4 Active Atorvastatin Calcium 20 MG Oral Tablet (Lipitor)Indicatio ns:Dyslipidemia Take 1 Tablet by mouth in the morning. 30 Tablet 5 5 Active buPROPion HCl ER (XL) 300 MG Oral Tablet Extended Release 24 Hour (Wellbutrin XL)Indications:Low libido Take 1 Tablet by mouth in the morning. 30 Tablet 5 5 Active Amphetamine-Dextro amphet ER 5 MG Oral Capsule Extended Release 24 Hour (Adderall XR) Take 2 Capsules by mouth in the morning. 60 Capsule 5 Active documented as of this encounter (statuses as of 11/18/2024) Active Problems Problem Noted Date Diagnosed Date Dyslipidemia 09/30/2024 ADHD (attention deficit hype ractivity disorder), combined type 08/31/2024 MDD (major depressive disord er), recurrent, in full remission 07/17/2024 Subclinical hypothyroidism 01/27/2024 Hoarding disorder 01/06/2024 Alcohol use disorder, moderate, in sustained rem ission 01/06/2024 MDD (major depressive disord er), recurrent episode, moderate 12/09/2023 Generalized anxiety disorder 12/09/2023 Attention and concentration deficit 12/09/2023 Hyperparathyroidism 01/11/2022 Severe episode of recurrent major depressive disorder, without psychotic features 01/11/2022 Methylenetetrahydrofolate reductase deficiency 1 12/14/2018 History of bowel resection 10/02/2017 Overview (10/02/2017): Diverticulitis. Financial difficulties 10/02/2017 Overview (10/02/2017): On MA. Menopause 10/02/2017 Overview (10/02/2017): At 51 yo Pap 2015 negative. Bartholin's gland cyst 10/02/2017 Overview (10/02/2017): Noted incidentally on MRI at [facility] Summer 2015. Will obtain record. Personal history of malignant neoplasm of breast 06/13/2016 Cancer Staging:Clinical: Unsigned Pathologic:Stage IA(T1c, N0, cM0) - Signed by Misha Rodriguez MD on 07/17/2016 Overview (01/13/2024): S/P the lumpectomy and sentinel lymph cira biopsy, T1c N0 M0, hormonal positive, Her2/Bianca--> negative, S/P adjuvant radiation treatment. 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 Temporomandibular joint diso rders, unspecified 06/02/2009 07/19/2022 documented as of this encounter (statuses as of 11/18/2024) Immunizations Name Administration Dates Next Due COVID-19 mRNA, LNP-s, No Pre serve, 2-Dose Series (Moderna) 08/21/2021,12/21/2020,11/23/2020 COVID-19, MRNA-LNP, 24-25, P R, 30MCG/0.3ML, IM, 12YRS AND ABOVE (Pfizer-Comirnaty) 07/02/2024 COVID-19, MRNA-LNP, PF, 50 M CG/0.5 mL, 12 YRS AND ABOVE, IM (MODERNA-Spikevax) 07/24/2023 Covid-19, Mrna, Lnp-s, Pf, B ivalent, 30 Mcg, IM, 12 yrs and above (Pfizer) 07/11/2022 RSV Vac., Recomb, Adjuvant, PF,0.5 Ml (Arexvy) 08/19/2023 Seasonal Influenza Vac., MDV , IM, 0.5 mL (Fluzone) 07/05/2017,08/06/2012,07/12/2010 Seasonal Influenza Virus Vac cine, Unspecified Formulation 08/06/2021 Seasonal Influenza, MDCK, Tr ivalent, PF, (Flucelvax) 06/22/2024 Seasonal Influenza, PF, 6 M & above, IM , (FluLaval or Fluzone) 07/24/2023,06/18/2022,07/17/2019,2017 Seasonal Influenza, Quadriva lent, No Preserve, IM 08/01/2016 Seasonal Influenza, Quadriva lent, No Preserve, Mdck 07/21/2020 TD, Preservative Free 10/28/2005 TDAP (age 10 and older)(Boostrix) 01/27/2024, TDAP, Age 7 and older, IM (Adacel) 01/13/2011([place]: Patient Refused) Zoster Vaccine Recombinant (Shingrix) 09/21/2019 ,07/17/2019 documented as of this encounter Social History Tobacco Use Types Packs/Day Years Used Date Smoking Tobacco: Former Cigarettes 1 22 0 12/11/1978 - 12/11/2000 Smokeless Tobacco: Never Alcohol Use Standard Drinks/Week Comments Not Currently 0 (1 standard drink = 0.6 oz pur e alcohol) quit 3 years 8 months ago. PHQ-2 Answer Date Recorded PHQ Adult Total Score 16 06/25/2023 Hunger Vital Sign Answer Date Recorded Within the past 12 months, y ou worried that your food would run out before you got the money to buy more. Never true 11/02/19 25 Within the past 12 months, t he food you bought just didn't last and you didn't have money to get more. Never true 11/02/2024 Childcare Answer Date Recorded Do you feel overwhelmed with taking care of a child, family member or friend? No 11/02/2024 Does your family need help f inding childcare? (Household - for ages 0-17 years) Not on file 11/02/2024 Clothing Answer Date Recorded Have you been unable to get clothing when it was really needed? No 11/02/2024 Is your family able to get c lothes or diapers when needed? (Household - for ages 0-17 years) Not on file 11/02/2024 Personal Safety Answer Date Recorded Do you feel unsafe or have concerns for your saf ety? No 11/02/2024 Do you have concerns for you r family's safety? (Household - for ages 0-17 years) Not on file 11/02/2024 Utilities Answer Date Recorded Do you have trouble paying y our heating, water, or electric bill? No 11/02/2024 Is your family able to pay t he heat, water, or electric bill? (Household - for ages 0-17 years) Not on file 11/02/2024 Does your family have access to good internet? (Household - for ages 0-17 years) Not on file 11/02/2024 Employment Status Answer Date Recorded Are you unemployed or without regular income? No 11/02/2024 Does the household have a [facility] source [facility] income? (Household - for ages 0-17 years) Not on file 11/02/2024 Social Connections Answer Date Recorded How often do you feel lonely or isolated from th ose around you? Never 11/02/2024 Financial Resource Strain Answer Date R ecorded Do you have any trouble payi ng for your medications, or do you think you might in the future? No 11/02/2024 Does your family have troubl e paying for medicine? (Household - for ages 0-17 years) Not on file 11/02/2024 Transportation Needs Answer Date Record ed Do you have trouble getting a ride to medical visits or work? (Adult - for ages 18 years and over) Not on file 11/02/2024 Does your family have a hard time getting a ride to doctors visits? (Household - for ages 0-17 years) Not on file 11/02/2024 Has lack of transportation k ept you from medical appointments, meetings, work, or from getting things needed for daily living? Check all that apply. No 11/02/2024 Do you (or your family) have trouble finding or paying for a ride (transportation)? (Household - for ages 0-17 years) Not on file 11/02/2024 Housing Stability Answer Date Recorded Do you currently live in a s helter or have no steady place to sleep at night? No 11/02/2024 Do you think you are at risk of becoming homeless? (Adult - for ages 18 years and over) Not on file 11/02/2024 Does your family worry about paying for your home or becoming homeless? (Household - for ages 0-17 years) Not on file 0 11/02/2024 Are you homeless or worried that you might be in the future? No 11/02/2024 Are you (or your family) dean eless or worried that you might be in the future? (Household - for ages 0-17 years) Not on file Food Insecurity Answer Date Recorded Do you need food for this week? No 11/02/2024 Are you able to get enough f ood for your family? (Household - for ages 0-17 years) Not on file 11/02/2024 Does your family need food t his week? (Household - for ages 0-17 years) Not on file 11/02/2024 Do you always have enough fo od for your family? (Household - for ages 0-17 years) Not on file 11/02/2024 Education Answer Date Recorded What is the highest level of school you have completed or the highest degree you have received? 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 [place] [phone] Clementina Kincaid MD [address] [place] [phone] 02/01/2025 11:00 AM EDT Office Visit Gynecology/Obstetrics [facility] [address] [address] Rochelle Corona CRNP [address] [place] [phone] 03/16/2025 1:00 PM EDT Imaging Radiology [facility] [address] [place] [phone] 05/06/2025 11:00 AM EDT Office Visit Family Practice [facility] [address] [place] [address] Mariya Mario CRNP [address] [place] [address] Scheduled Procedures Name Priority Associated Diagnoses Date/Ti me COLONOSCOPY FLEXIBLE PROXIMA L DIAGNOSTIC Recall Special screening for malignant neoplasms, colon Health Maintenance Due Date Last Done Comments HPV/Co-Test 1993 Cologuard 2008 Fecal Occult Blood Test 2008 Sigmoidoscopy 2008 Pneumococcal Vaccine: 50+ Years (1 of 1 - PCV) 2013 Depression Monitoring 06/25/2024 06/25/2023 COVID-19 Vaccine ( season) 2024 07/02/2024, 07/24/2023, 07/11/2022, Additional history exists Cervical Cancer Screening 08/03/2025 Mammogram 08/03/2025 08/03/2024, 04/2024, 07/31/2023, Additional history exists Pap Smear 08/03/2025 08/03/2022, 0 04/2020, 12/04/2019, Additional history exists TSH 11/03/2025 11/03/2024, 040 10/2023, 12/20/2023, Additional history exists Diabetes Screening 12/20/2026 12/20/2023, 0 03/19/2022, 06/08/2020, Additional history exists Colonoscopy 04/12/2027 04/12/2017, 03/28, 05/12/2014, Additional history exists Colorectal Cancer Screening 04/12/2027 Lipid Panel 10/23/2029 10/23/2024, 11/0 02/2020, 06/08/2020, Additional history exists DTap/Tdap Vaccines (3 - Td or Tdap) 01/26/2034 01/27/2024, 06/25/2013, 10/28/2005 Zoster Vaccines Completed 09/21/2019, 07/17/2019 Influenza Vaccine (FLU shot) Completed , 07/24/2023, 06/18/2022, Additional history exists HPV (Gardasil) Vaccine Aged Out No lo nger eligible based on patient's age to complete this topic Hepatitis B Vaccine Aged Out No longe r eligible based on patient's age to complete this topic MENINGOCOCCAL (MENACTRA/MENVEO) Aged Out No longer eligible based on patient's age to complete this topic documented as of this encounter Medical Devices Not on filedocumented as of this encounter Care Teams Senior Scheduler Relationship Specialty Start Date End Date Mariya Mario CRNP [address] [place] [phone] PCP - General Nurse Practitioner 11/05/24 documented as of this encounter
--- OUTSIDE RECORDS SUMMARY | 2024-12-04 14:01 | External Medical Summary | Summary of Care ---
Author Name Unknown Organization [facility] Address [address] [place] [address] Phone [phone] Care Team Providers Care Can Top Setter Name Role Phone Mariya Mario Primary Care Provider [phone]- [phone] Encounter Details Date Type Department Care Team (Late st Contact Info) Description 08/07/2024 Telephone Psychiatry Christopher Graham [address] [place] [address] Kristyn Fernando CRNP [address] [place] [address] Allergies Active Allergy Reactions Criticality Noted Date Comments Adhesive Tape 05/29/2016 Blister from core bx done 04/2016 Hydromorphone 08/07/2022 Xenia unwell documented as of this encounter (statuses as of 11/06/2024) Medications Levothyroxine Sodium 25 MCG Oral Tablet (Levoxyl)Indicatio ns:Subclinical hypothyroidism Take 1 Tablet by mouth in the morning. (at least 30 min prior to breakfast or other meds). 30 Tablet 11 02/11/20 24 Active Lisdexamfetamine Dimesylate 30 MG Oral Capsule (Vyvanse) Take 1 Capsule by mouth in the morning. 30 Capsule 07/21/20 24 024 Discontinu ed(Refill) Doxycycline Hyclate 100 MG Oral Capsule Take 1 Capsule by mouth in the morning and 1 Capsule before bedtime. Do all this for 14 days. Until gone.. 28 Capsule 08/01/20 24 024 Lisdexamfetamine Dimesylate 30 MG Oral Capsule (Vyvanse) Take 1 Capsule by mouth in the morning. 30 Capsule 08/07/20 24 024 Discontinu ed(Medicat ion List Clean Up) documented as of this encounter (statuses as of 11/06/2024) Active Problems Problem Noted Date Diagnosed Date [...] 10/02/2017 Overview (10/02/2017): At 51 yo Pap 2016 negative. Bartholin's gland cyst 10/02/2017 Overview (10/02/2017): Noted incidentally on MRI at [facility] Summer 2015. Will obtain record. Personal history of malignant neoplasm of breast 06/13/2016 Cancer Staging:Clinical: Unsigned Pathologic:Stage IA(T1c, N0, cM0) - Signed by Misha Rodriguez MD on 07/17/2016 Overview (01/13/2024): S/P the lumpectomy and sentinel lymph cira biopsy, T1c N0 M0, hormonal positive, Her2/Bianca--> negative, S/P adjuvant radiation treatment. 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 Temporomandibular joint diso rders, unspecified 06/02/2009 07/19/2022 documented as of this encounter (statuses as of 11/06/2024) Immunizations Name Administration Dates Next Due COVID-19 [...] TDAP, Age 7 and older, IM (Adacel) 01/13/2011([place]: Patient Refused) Zoster Vaccine Recombinant (Shingrix) 09/21/2019 [...] No 11/02/2024 Does the household have a re lar source of income? 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 [place] [phone] Clementina Kincaid MD [address] [place] [phone] 02/01/2025 11:00 AM EDT Office Visit Gynecology/Obstetrics [facility] [address] [place] [address] Rochelle Corona CRNP [address] [place] [address] 03/16/2025 1:00 PM EDT Imaging Radiology [facility] [address] [place] [phone] 05/06/2025 11:00 AM EDT Office Visit Family Practice [facility] [address] [place] [address] Mariya Mario CRNP [address] [place] [address] Scheduled Procedures Name Priority Associated Diagnoses Date/Ti [...] Additional history exists Pap Smear 08/03/2025 08/03/2022, 04/2020, 12/04/2019, Additional history exists TSH 11/03/2025 11/03/2024, 04/0 10/2023, 12/20/2023, Additional history exists Diabetes Screening [...] Not on filedocumented as of this encounter Visit Diagnoses Diagnosis Attention and concentration deficit- Primary Attention or concentration deficit documented in this encounter Care Teams Can Top Setter Relationship Specialty Start Date End Date Mariya Mario CRNP [address] [place] [address] PCP - General Nurse Practitioner 11/05/24 documented as of this encounter
--- OUTSIDE RECORDS SUMMARY | 2024-12-04 14:01 | External Medical Summary | Summary of Care ---
Author Name Unknown Organization [facility] Address [address] [place] [address] Phone [phone] Care Team Providers Care Gl Accountant Name Role Phone Anahycostajosé miguelLitaMariya JONA Primary Care Provider [phone] Encounter Details Date Type Department Care Team (Late st Contact Info) Description 12/02/2024 9:00 AM EST Telemedicine Psychiatry Lazaro Farmer [address] [facility] [place] [id number] Clementina Kincaid MD [address] [place] [id number] ADHD (attention deficit hyperactivity disorder), combined type*; MDD (major depressive disorder), recurrent, in full remission (HCC); Generalized anxiety disorder; Hoarding disorder Allergies Active Allergy Reactions Criticality Noted Date Comments Adhesive Tape 05/29/2016 Blister from core bx done 04/2016 Hydromorphone 08/07/2022 Lutts unwell documented as of this encounter (statuses as of 12/02/2024) Medications Levothyroxine Sodium 25 MCG Oral Tablet (Levoxyl)Indicatio ns:Subclinical hypothyroidism Take 1 Tablet by mouth in the morning. (at least 30 min prior to breakfast or other meds). 30 Tablet 11 02/11/20 24 Active Atorvastatin Calcium 20 MG Oral Tablet (Lipitor)Indicatio ns:Dyslipidemia Take 1 Tablet by mouth in the morning. 30 Tablet 5 11/02/19 25 Active buPROPion HCl ER (XL) 300 MG Oral Tablet Extended Release 24 Hour (Wellbutrin XL)Indications:Low libido Take 1 Tablet by mouth in the morning. 30 Tablet 5 11/02/19 25 Active Amphetamine-Dextro amphet ER 5 MG Oral Capsule Extended Release 24 Hour (Adderall XR) Take 2 Capsules by mouth in the morning. 60 Capsule 12/02/19 25 Active Amphetamine-Dextro amphet ER 5 MG Oral Capsule Extended Release 24 Hour (Adderall XR) Take 2 Capsules by mouth in the morning. 60 Capsule 11/03/19 25 025 Discontin ued(Refil l) documented as of this encounter (statuses as of 12/02/2024) Active Problems Problem Noted Date Diagnosed Date [...] Overview (10/02/2017): Noted incidentally on MRI at [facility] Summer 2015. Will obtain record. Personal history of malignant neoplasm of breast 06/13/2016 Cancer Staging:Clinical: Unsigned Pathologic:Stage IA(T1c, N0, cM0) - Signed by Misha Rodriguez MD on 07/17/2016 Overview (01/13/2024): S/P the lumpectomy and sentinel lymph cira biopsy, T1c N0 M0, hormonal positive, Her2/Bianca--> negative, S/P adjuvant radiation treatment. 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 Temporomandibular joint diso rders, unspecified 06/02/2009 07/19/2022 documented as of this encounter (statuses as of 12/02/2024) Immunizations Name Administration Dates Next Due COVID-19 [...] 11/02/2024 Does the household have a re gular source of income? 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 Patient location: HOME. I was not in a hospital or clinic location. After connecting through televideo, patient was verified with two unique identifiers. Patient (or authorized legal sales and service representative) was then informed that this was a Telemedicine visit and being conducted confidentially over secure lines. Methods to assure confidentiality were taken. Patient acknowledged consent and understanding of privacy and security of the Telemedicine visit. The patient agreed to participate. TELEPSYCHIATRY RETURN VISIT NOTE Psychiatry, [address] [address] 09/24/2023 Destini Ramya [place] [id number] PATIENT CONTACT INFORMATION: [address] [place] [phone] There is no home phone number on file. Extended Emergency Contact Information Primary Emergency Contact: LASHAWNSweetiePEPE Mobile Relation: Other - (no specific identity) Secondary Emergency Contact: HANNAH MCCULLOUGH Relation: Parent CC: Routine Clinic Follow Up INTERVAL HISTORY: Pt presents on time for today's appt. Since her last clinic visit, she describes experiencing an understandable increase in anxiety r/t the ongoing political climate/recent events. She identifies this as being both appropriate and understandable given current circumstances, and states that she's still tried to work on incorporating activities such as using her treadmill and resuming yoga to best optimize her overall well being. She has continued to sleep well at night and remain w/o acute safety concerns inc SI or HI. She has noticed some increase in headaches the past week, though she denieschest pain or other issues r/t medication intolerance. She has continued to take bupropion 300mg aswell, and identifies adderall as being effective still in that she feels "normal". She denies any substance use. Social Update: -Pt has a trip to [place] scheduled in the upcoming weeks PDMP Review: I have reviewed the patients controlled substance dispensing history in the Prescription Drug Monitoring Program in compliance with the [facility] regulations before prescribing a controlled substance. Other Dispensed Days Supply Quantity Provider Pharmacy MIXED AMPHETAMINE SALTS (Capsule, Extended Release) 11/03/2024 30 60 Unit(s) Not Specified CLEMENTINA KINCAID [facility]... MIXED AMPHETAMINE SALTS (Capsule, Extended Release) 09/30/2024 30 60 Unit(s) Not Specified CLEMENTINA KINCAID [facility]... MIXED AMPHETAMINE SALTS (Capsule, Extended Release) 09/02/2024 30 60 Unit(s) Not Specified CLEMENTINA KINCAID [facility]... ADDERALL XR (Capsule, Extended Release) 07/24/2024 30 30 Unit(s) Not Specified CLEMENTINA KINCAID [facility] #... METHYLPHENIDATE HCL (Tablet, Extended Release) 06/19/2024 30 30 Unit(s) Not Specified CLEMENTINA KINCAID [facility] P REVIEW OF SYSTEMS: Review of systems including cardiac, pulmonary, constitutional, dermatologic, rheumatologic, GI, , MSK, psychiatric, and neurologic systems was negative except as in HPI +intermittent headaches HOME MEDICATIONS: Current Outpatient Medications Medication Sig Dispense Refill Amphetamine-Dextroamphet ER 5 MG Oral Capsule Extended Release 24 Hour (Adderall XR) Take 2 Capsules by mouth in the morning. 60 Capsule 0 Atorvastatin Calcium 20 MG Oral Tablet (Lipitor) Take 1 Tablet by mouth in the morning. 30 Tablet 5 buPROPion HCl ER (XL) 300 MG Oral Tablet Extended Release 24 Hour (Wellbutrin XL) Take 1 Tablet by mouth in the morning. 30 Tablet 5 Levothyroxine Sodium 25 MCG Oral Tablet (Levoxyl) Take 1 Tablet by mouth in the morning. (at least 30 min prior to breakfast or other meds). 30 Tablet 11 No current facility-administered medications for this visit. ALLERGIES: Review of patient's allergies indicates: Allergen Reactions Adhesive Tape Blister from core bx done 04/2016 Hydromorphone Lutts unwell VITAL SIGNS: LMP (LMP Unknown) MENTAL STATUS EXAM: General Appearance: Appears stated age, dressed appropriately for weather, good hygiene, normal body habitus and posture, limited eye contact with normal gaze. Attitude/Behavior: Appropriate, cooperative Motor Behavior: improved pma, no pmr. No evidence of catatonia or abnormal movement. Gait is withinnormal limits and appropriate Affect: +mildly anxious, tearful at times, though appropriate. Stable. Mood: not explicitly stated Thought Process: +linear, though some increase in word finding difficulties, appears to lose train of thought at times. No gross evidence of thought disorganization/thought blocking, neologism, or clang associations Speech: Normal rate/non-pressured, normal rhythm/yissel, appropriate volume, Language: fluent, comprehension intact, no naming/word-finding difficulties Thought Content: Suicidal ideation:Not Present Intent: denies Plan: denies Homicidal ideation:Not Present No evidence of cognitive distortions, ideas of reference, phobias, obsessions, delusional beliefs, perseveration, or rumination Perception: No evidence of auditory, visual, olfactory, or gustatory hallucinations. Pt does not appear to be internally preoccupied. No evidence of illusions/depersonalization/derealization or dissociation Cognition: Orientation: grossly oriented to person, place, and situation Memory: not formally assessed, though no gross deficits detected. Recent, working, and long-term all appear to be grossly intact Attention/Concentration: increased distractibility,though no gross fluctuations in sensorium, attends appropriately to interview Appropriate fund of knowledge and average level of intellect Insight: good Judgement: good No questionnaires available. Labs/Outcomes No data to display [place] Suicide Severity Rating Scale Results 12/02/2024 09:33 [place] SUICIDE SEVERITY RATING SCALE (C-SSRS) Have you wished you were or wished you could go to sleep and not wake up? (In the Past Month or Since Last Visit) No Have you had any actual thoughts of killing yourself? (In the Past Month or Since Last Visit) No Have you been thinking about how you might do this? (In the Past Month or Since Last Visit) No Have you had thoughts and had some intention of acting on them? (In the Past Month or Since Last Visit) No Have you started to work out or worked out the details of how to kill yourself? Do you intend to carry out this plan? (In the Past Month or Since Last Visit) No Have you ever done anything, started to do anything, or prepared to do anything to end your life? (Lifetime) No Was this within the past 3 months? No Level of Risk No Risk Identified Protective Factors Social Support/Family;Hopeful attitude and or beliefs;Access to appropriate services;Help-Seeking Behaviors;Willing to participate in less restrictive means of help;Identifies reasons for living;Supervision and monitoring available;Future Plans;Cares about job/school Risk Factors History of Depression;Anxiety [place]IA-SUICIDE SEVERITY RATING SCALE Frequent Screener Ask questions that are bold and underlined Since Last Contact (Michael with an X) YES NO Have you actually had thoughts about killing yourself? X If YES, ask the following questions. If NO, go directly to the last question Have you been thinking about how you might do this? Have you had these thoughts and had some intention of acting on them? E.g. I thought about taking an overdose, but I never made a specific plan as to when where or how I would actually do it.and I would never go through with it. Have you started to work out or worked out the details of how to kill yourself? Do you intend to carry out this plan? As opposed to I have the thoughts, but I definitely will not do anything about them. Have you done anything, started to do anything, or prepared to do anything to end your life? Examples: Collected pills, obtained a gun, gave away valuables, wrote a will or suicide note, took out pills but didn't swallow any, held a gun but changed your mind or it was grabbed from your hand,went to the roof but didn't jump; or actually took pills, tried to shoot yourself, cut yourself, tried to hang yourself, etc. X Low Risk Complete or review crisis plan with patient Discuss risk/protective factors and reasons for living Moderate Risk Complete or review crisis plan with patient Discuss risk/protective factors and reasons for living Discuss removal of means High Risk Maintain 1 to 1 monitoring until assessment is completed Evaluate for higher level of care (Inpatient or PHP) Consultation with Emergency Services as appropriate If patient not admitted: Complete or review crisis plan with patient Discuss risk/protective factors and reasons for living Advise removal of means Consider family or collateral contact to promote safety Schedule follow up care consistent with assessment IMPRESSION: Ms. Braulio (Laura) is a 59 yo F w/ a pmh including breast cancer in remission and TMJ, as well as apast psychiatric hx of self-reported "depression and anxiety" who presents to the [facility] for initial evaluation. She describes a longstanding hx of inattentiveness/poor task completion since childhood, which she reports has significantly worsened over the past few months to the point where it's causing a notable degree of functional impairment w/ her job and other household responsibilities. She also describes a hx of both depressive and anxiety related sx since adolescence, that have primarily been tx by her primary care providers, as she denies ever establishing formal mental health tx up until this point. On interview pt presents as notably anxious/tearful and w/ a moderate degree of pma, though she denies acute safety concerns that would merit escalation of OP care. Discussed at length today the recommendation to refrain from medical cannabis use (which she reports also reducing more recently) given it's risk for further impairing executive function and contributing to anxiety/paranoia/mood disturbances, as well as the recommendation for pt to complete an TAMELA to allow for additional collateral from her family, which she is in agreement with as well. Will also order some additional nutritional labs to r/o any underlying conditions that may be contributing to her current presentation prior to initiating a psychotropic. Aug 2023: Pt has continued to struggle significantly with poor focus/task completion, distractibility, and forgetfulness, which she reports has continued to worsen significantly over the past severalmonths. She also describes a 30 year hx of severe hoarding that has significantly impacted her ability to maintain social relationships and continues to drive ongoing mood dysphoria, anxiety, and guilt. Pt denies acute safety concerns today, and continues to implement a variety of healthy lifestylestrategies through diet/exercise. She has also continued to abstain from EtOH use, as she approaches 4 years of sobriety in Sep 2023. PHQ9 14 and MARGE 7: 11from today both indicate moderate depressive/anxiety sx as well. Discussed at length the complexity of her current clinical presentation, given potential for her 30 yr hx of EtOH use and prior Lyme Disease diagnosis to potentially be contributing to her current cognitive sx, though concern is also present for potential ADHD that was undiagnosed for her as a child. Her active hoarding behavior also continues to contribute significantly to her mood/anxiety as well, which up until this point also remains quite active. Discussed the plan for pursuing urgent Neuropsych testing for more thorough assessment of her cognition given these factors, while also collaborating w/ her PCP regarding her Lyme disease tx and potential referral to a specialist for further assessment. Will also initiate sertraline (as pt has tolerated this in the past) to target her active mood/anxiety sx. Nov 2023: Since last visit, pt was able to complete neuropsych testing, which resulted in "equivocal" test results in that ADHD could not be officially dx given pt's atypical responses across certainmeasures, that may also be r/t her ongoing hoarding behaviors. Pt's Lyme disease specialist has also been contacted, who confirmed that pt has completed tx, not currently requiring any additional assessment/work up in this regard. Pt has also continued to engage in therapy through [facility] where focus has remained on targeting her persistent hoarding behaviors. Today, pt asserts a strong desire to target her behaviors, and reports that her anxiety and frustration are heavily driven by her ongoing struggles w/ poor task completion/distractibility/forgetfulness, which continue to lead to a notable degree of functional impairment. She also reports a hx of poor task completion/inattentiveness both in childhood/adolescence (though this was never formally dx/explored), which pt reports her mother has more recently raised concern about. Pt also reports that she's continued to refrain from both EtOHand cannabis. Discussed consideration today for a trial of atomoxetine, to ideally target both her cognitive concerns as well as her mood/anxiety (as pt reports poor tolerance of sertraline). Discussed at length the risks assoc w/ any potential stimulant trial in the future as well. Dec 2023: Pt reports poor tolerance of atomoxetine, which has since been d/c'd in favor of methylphenidate. She reports continued tolerance of methylphenidate overall, denying any side effects whatsoever inc worsened sleep, appetite, or anxiety. She also denies any particular benefit and is agreeable to further titration today. Will also plan to collaborate w/ her PCP regarding her recent TSH findings, in addition to repeating her CBC in 2 weeks as recommended by hematology. January 2024: Pt reports an improvement in focus/information retention/task completion since methylphenidate was last increased. She has also remained interested in est w/ a new therapist to target herhoarding bx, and has been encouraged to consider [facility] as well. Her CBC returned reassuring, though her TSH/Ft4 still abnormal, which pt has continued to work closely w/ her PCP for management of (has received an Rx for levothyroxine which she's not yet initiated). Will plan to hold methylphenidate at it's current dose for now and reassess how she is doing next clinic visit. February 2024: Pt reports sustained mood stability and continued tolerance of methylphenidate, which shecontinues to identify as being effective. She has also been able to establish therapy w/ a providerin the , whom she continues to meet with on a weekly basis and reports feeling optimistic about as well. She has experienced an increase in skin picking over the past week, which she has been encouraged to monitor for/continue exploring w/ her therapist . Also discussed consideration for NAC/naltrexone in the future should her sx become more problematic as well. Will otherwise plan to proceed w/ the tx as detailed below. March 2024: Pt reports sustained mood stability overall and adequate control of anxiety despite a significant increase in work-related stressors/demands. 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 She has also remained engaged in therapy which she identifiesas being beneficial. Discussed the plan to continue methylphenidate at it's current dose w/ the plan to reassess how she is doing next clinic visit. May 2024: Pt reports sustained mood stability, as well as a relative improvement in anxiety since her last clinic visit. She has noticed an increase in inattentiveness/task completion difficulties and is agreeable to further titrating methylphenidate which she's continued to tolerate well also. Jun 2024: Since her last clinic visit, pt reports poor tolerance of the most recent increase in methylphenidate, which led to increased agitation, racing thoughts/anxiety, and increased HR which have since resolved after she self- discontinued it. She reports experiencing 1 day of severe mood dysphoria that resolved in 1 day as well, though also discloses today that she's continued to take an oldRx of sertraline (started the day her mood declined). She denies acute safety concerns and reports that she's returned to [facility], though she has experienced a notable increase in forgetfulness/distractibility/poor task completion since remaining off of methylphenidate. Discussed recommendations for d/c'ing sertraline today given concern that the Rx is , and that her mood dysphoria is suspected to have been r/t withdrawal from methylphenidate given it's abrupt discontinuation. Discussed the importance of still monitoring her mood closely moving forward and notifying the clinic should she experience any decline in it. Will also repeat an EKG to ensure no significant changes or conc erns are present given her intolerance of methylphenidate most recently. Also discussed the tentative plan to trial adderall xr at a low dose of 10mg, assuming that no concerns are present on her repeat EKG, which she expresses intent on completing in the upcoming days. Aug 2024: Pt reports positive response to adderall xr, which she's continued to tolerate well, denying any significant changes in anxiety, mood, or sleep. Her repeat EKG was also unremarkable in thatit did not demonstrate significant change from her prior study. Discussed the plan to proceed w/ the tx plan as detailed below. Sep 2024: Pt reports continued tolerance of adderall since her last clinic visit, which she identifies as being beneficial as well. She also reports sustained mood stability, denying concern for emerging depressive sx or worsening anxiety. She was recently initiated on bupropion by her PCP several w eeks ago for decreased libido, and has been engaged in discussion regarding it's risks inc lowered seizure threshold and worsening anxiety (pt denies hx of seizures though does report a hx of purgingas an adolescent last completed ~age 16). She denies any side effects or concerns r/t bupropion thus far, as well as any distinct change in mood or anxiety at this point. She remains in agreement w/ the plan for continuing to monitor for such moving forward. Oct 2024: Pt reports sustained mood stability and continued tolerance of adderall, which she identifies as being beneficial. She has also continued to tolerate bupropion which was most recently increased yesterday to 300mg by her PCP, denying any particular worsening of sleep or anxiety. She has noticed some increase in appetite which she's been encouraged to continue monitoring moving forward. Will otherwise plan to continue as detailed below. Nov 2024: Pt reports sustained mood stability as well as continued tolerance of adderall. She has experienced some increase in anxiety r/t the current political climate, though remains functional andappropriately engaged w/ friends and family. She also continues to implement healthy lifestyle practices. She has experienced an increase in headaches over the past week or so, and has been encouraged to remain well hydrated w/ continued monitoring of them. Will hold on any additional medication changes at this point w/ the plan for reassessing how she is doing in 1 month. DIAGNOSES: Major Depressive Disorder (PHQ9 from 06/25/23: 16) Generalized anxiety disorder (GAD7 from 08/22/23: 20, 08/28/23: 15) Hoarding disorder EtOH use disorder in remission Attention deficit and hyperactivity disorder R/O cannabis induced mood or anxiety disorder R/O caffeine dependence UPDATED TREATMENT PLAN: MEDICATIONS: 1. Continue adderall xr 10mg daily Future med considerations: escitalopram, venlafaxine, sertraline (pt previously reported poor tolerance of such in the past w/ side effects inc headaches/tinnitus though has most recently trialed it again w/o such) Recent med trials: sertraline (caused tinnitus/headaches), atomoxetine (caused chills/odd oral taste) THERAPY: 1. Pt has most recently est w/ an agency in [place] She has also been provided w/ addtl informationp/r [facility] LABS/TEST MONITORING 1. TSH from Nov 2023: 4.81 (H), FT4 1.2 (N) TSH from January 2024: 5.59 (H), FT4 0.8 (L)-->pt has continued to take levothyroxine 2. CBC from Nov 2023 notable for WBC 3.31 (L), ANC 1.65 (L)-->ask a doc placed to hematology w/ recs made for repeating in 2 weeks and arranging OP follow up in the heme/onc clinic if labs remain abnormal Repeat CBC from January 2024: WNL Vit D 28 from Nov 2023-->recommend 1000 units daily of vitamin D CMP unremarkable form Nov 2023 B12 from B12: 416 (N) UDS negative from Nov 2023 EKG from Nov 2023: normal sinus rhythm , no change compared to EKG from Aug 2020, Qtc 410ms. EKG from Jun 2024: normal sinus rhythm, no significant change compared to Nov 2023, Qtc 409ms 2. Neuropsych testing results: "Overall impression is of equivocal, or unclear, evidence of ADHD on the current evaluation. Neuropsychological testing did not reveal a pattern of worse performance on a composite measure of attention tasks vs general cognitive abilities. Further, the patient completed a self-report measure of ADHD symptomatology in childhood and as an adult. The patient showed evidence of negative impression management and endorsed an atypical number of items that the majority of individuals, to includethose with ADHD, would not typically endorse. The patient's pattern of responding limits meaningfulinterpretation of this measure; however, for consideration is whether some aspects of her hoarding behavior could have resulted in the unusual responses. The patient reported that hoarding behavior is her primary focus of treatment, and overall it is frankly unclear whether ADHD could be complicating this or comorbid in the diagnostic consideration " ADDITIONAL [place] CONSIDERATIONS: 1. Discussed concerns pertaining to the pt's prior medical cannabis use, in that it may potentiallybe contributing to a variety of her current symptoms, and include the risk for psychosis/paranoia, amotivation, fatigue, impaired executive functioning (including declines in memory, attention, response time and concentration), anxiety, and mood dysfunction/dysphoria. Additionally, the risk acute intoxication poses has been addressed, which can include acute anxiety, dysphoria, paranoia, psychomotor impairment, and cognitive delay placing them at further risk of injury/accidents. For female patients of reproductive age, also discussed the risk cannabis use poses during both and withbreastfeeding including growth restriction and premature . Will also continue to discusslimitations of any ongoing psychotropic management, including dose modification and treatment responsiveness, which is significantly limited in the context of ongoing substance use. 2. Will also encourage pt to limit her caffeine consumption given it's risk for further contributing to anxiety, sleep disturbances, and agitation Contraception: pt is post-menopausal Side effects of the medication were explained, and the patient understands the risks and benefits of using the medication. Patient cautioned not to drive, operate heavy machinery, or participate in other tasks requiring full cognitive alertness until they know how new medications will affect them. Pt encouraged to keep all medications out of the reach of children. Psychoeducation was provided. Discussed risks, expected benefits, and potential adverse effects from these medications. The benefitsoutweigh the risks. The patient participated in the development of the treatment plan, verbalized understanding, voices no concerns and is agreeable to the treatment plan. Risk assessment was performed. This is a patient being treated for chronic mental health conditionsand/or substance use disorder as characterized above; at the time of this visit, there was no indication that this patient was either a risk to self, others, or gravely disabled by symptoms of a mental illness or substance use disorder. At the time of this evaluation, there were enough protective factors in place and it was deemed safe to continue with treatment on a outpatient basis with return to clinic in the timeframe described above. Nutrition/exercise/sleep: Pt encouraged to continue incorporating healthy lifestyle choices, which include healthy food choices, limited caffeine consumption, optimal sleep hygiene, and routine exercise. Destini Ramsey was able to verbalize understanding of the steps necessary to obtain help between appointments should be needed, from requesting a phone call, to requesting an appointment sooner, including reaching clinic after hours, or accessing emergency mental health and medical services, eitherat a local emergency department or by activating mobile crisis teams and EMS. Destini Ramsey has also been provided with Psychiatry emergency telephone numbers, including crisis number, text suicide hotline and suicide hotline. The crisis plan was reviewed and updated if necessary based on the information above. . Return in Dec 2024 STRATEGIES: Supportive listening Problem solving I spent a total of 10-19 minutes (exact time 14 mins) on the date of service in preparation, delivery, and documentation of the care provided to Destini Ramsey excluding any time spent in the performance of separately billed services or time spent by another provider/QHP. Please note, that billing based on time includes visit preparation (I.e reviewing of the patient's most recent labwork/test findings), completion of medically necessary examinations (either through modified AIMS or other physical assessments for proper assessment of any adverse medication reactionsor other physical concerns), providing additional counseling and education to both the patient and other family members/treatment team members that are also present with the patient's consent, additional testing/medication orders, necessary clinical information documentation/data interpretation, aswell as care collaboration with other treatment team members or external physicians via [employer] or telephonic communications. documented in this encounter Plan of Treatment Upcoming Encounters Date Type Department Care Team (Late st Contact Info) Description 12/04/2024 1:00 PM EST [facility] [address] [place] [id number] Rochelle Coorna CRNP [address] [place] [address] 12/31/2024 12:00 PM EST Telemedicine Psychiatry Lazaro Farmer [address] [place] [phone] Clementina Kincaid MD [address] [place] [phone] 03/16/2025 1:00 PM EDT Imaging Radiology [facility] [address] [place] [phone] 05/06/2025 11:00 AM EDT Office Visit Family Practice [facility] [address] [place] [address] Mariya Mario CRNP [address] [place] [address] Scheduled Procedures Name Priority Associated Diagnoses Date/Ti [...] 12/04/2019, Additional history exists TSH 11/03/2025 11/03/2024, 10/2023, 12/20/2023, Additional history exists Diabetes Screening [...] as of this encounter Visit Diagnoses Diagnosis ADHD (attention deficit hyperactivity disorder), combined type- Primary Attention deficit disorder with hyperactivity MDD (major depressive disorder), recurrent, in full remission (HCC) Major depressive disorder, recurrent episode, in full remission Generalized anxiety disorder Hoarding disorder documented in this encounter Care Teams Gl Accountant Relationship Specialty Start Date End Date Mariya Mario CRNP [address] [place] [address] PCP - General Nurse Practitioner 11/05/24 documented as of this encounter
--- OUTSIDE RECORDS SUMMARY | 2024-12-04 14:01 | External Medical Summary | Summary of Care ---
Author Name Unknown Organization [facility] Address [address] [place] [address] Phone [phone] Care Team Providers Care Car Repair Supervisor Name Role Phone Kojo Doshir [place] Primary Care Provider Encounter Details Date Type Department Care Team (Late st Contact Info) Description 11/03/2024 2:00 PM EST Telemedicine Psychiatry [address], [place] [facility]. [place] [phone] Clementina Kincaid MD [address] [place] [address] ADHD (attention deficit hyperactivity disorder), combined type*; Generalized anxiety disorder; MDD (major depressive disorder), recurrent, in full remission (HCC); Hoarding disorder Allergies Active Allergy Reactions Criticality Noted Date Comments Adhesive Tape 05/29/2016 Blister from core bx done 04/2016 Hydromorphone 08/07/2022 [place] unwell documented as of this encounter (statuses as of 11/03/2024) Medications Levothyroxine Sodium 25 MCG Oral Tablet [...] in the morning. 60 Capsule 11/03/19 25 Active Amphetamine-Dextro amphet ER 5 MG Oral Capsule Extended Release 24 Hour (Adderall XR) Take 2 Capsules by mouth in the morning. 60 Capsule 09/30/20 24 025 Discontin ued(Refil l) documented as of this encounter (statuses as of 11/03/2024) Active Problems Problem Noted Date Diagnosed Date [...] Overview (10/02/2017): Noted incidentally on MRI at [facility] Summer 2015. Will obtain record. Personal history of malignant neoplasm of breast 06/13/2016 Cancer Staging:Clinical: Unsigned Pathologic:Stage IA(T1c, N0, cM0) - Signed by Misha Rodriguez MD on 07/17/2016 Overview (01/13/2024): S/P the lumpectomy and sentinel lymph cira biopsy, T1c N0 M0, hormonal positive, Her2/Bianca--> negative, S/P adjuvant radiation treatment. 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 Patient location: HOME. I was not in a hospital or clinic location. After connecting through televideo, patient was verified with two unique identifiers. Patient (or authorized legal patient accounting representative) was then informed that this was a Telemedicine visit and being conducted confidentially over secure lines. Methods to assure confidentiality were taken. Patient acknowledged consent and understanding of privacy and security of the Telemedicine visit. The patient agreed to participate. TELEPSYCHIATRY RETURN VISIT NOTE Psychiatry, [address] [address] 09/24/2023 Destinimelita Ramsey [id number] PATIENT CONTACT INFORMATION: [address] [facility] [address] There is no home phone number on file. Extended Emergency Contact Information Primary Emergency Contact: PEPE NAVARRO Mobile Relation: Other - (no specific identity) Secondary Emergency Contact: HANNAH MCCULLOUGH Relation: Parent CC: Routine Clinic Follow Up INTERVAL HISTORY: Pt presents on time for today's appt. Since her last clinic visit, she reports that she's been doing "really well". She denies concern for emerging depressive sx inc feelings of helplessness, hopelessness, SI or HI. She's continued to also sleep well at night. She has continued to take bupropion xl, which was most recently increased to 300mg daily during her appt yesterday w/ her PCP. She denies any identifiable worsening of anxiety r/t it, as well as any sx of chest pain, dyspnea, or headaches. She has noticed some increase in appetite in that she's been snacking more at night, which she's become more mindful of (in that she was able to refrain from doing so last night). She does believe she may have gained a few lbs more recently, though states she also has not been as active (in that she's been watching cats more so than dogs lately). She has otherwise continued to do well physically, denying new concerns. She also recently celebrated her 5th year of sobriety from [facility]. PDMP Review: I have reviewed the patients controlled substance dispensing history in the Prescription Drug Monitoring Program in compliance with the [facility] regulations before prescribing a controlled substance. Other Dispensed Days Supply Quantity Provider Pharmacy MIXED AMPHETAMINE SALTS (Capsule, Extended Release) 09/30/2024 30 60 Unit(s) Not Specified [facility]... MIXED AMPHETAMINE SALTS (Capsule, Extended Release) 09/02/2024 30 60 Unit(s) Not Specified [facility]... ADDERALL XR (Capsule, Extended Release) 07/24/2024 30 30 Unit(s) Not Specified [facility] #... METHYLPHENIDATE HCL (Tablet, Extended Release) 06/19/2024 30 30 Unit(s) Not Specified [facility]... METHYLPHENIDATE HCL (Tablet, Extended Release) 06/04/2024 30 30 Unit(s) Not Specified [facility]... METHYLPHENIDATE HCL (Tablet, Extended Release) 06/04/2024 30 30 Unit(s) Not Specified [facility]... REVIEW OF SYSTEMS: Review of systems including cardiac, pulmonary, constitutional, dermatologic, rheumatologic, GI, , MSK, psychiatric, and neurologic systems was negative except as in HPI +increased appetite +decreased libido HOME MEDICATIONS: Current Outpatient Medications Medication Sig [...] Blister from core bx done 04/2016 Hydromorphone [place] unwell VITAL SIGNS: LMP (LMP Unknown) MENTAL STATUS EXAM: General Appearance: Appears stated age, dressed appropriately for weather, good hygiene, normal body habitus and posture, limited eye contact with normal gaze. Attitude/Behavior: Appropriate, cooperative Motor Behavior: improved pma, no pmr. No evidence of catatonia or abnormal movement. Gait is withinnormal limits and appropriate Affect: +euthymic, bright, stable, mood congruent Mood: "really good" Thought Process: +linear, though some increase in [...] knowledge and average level of intellect Insight: fair-good Judgement: good No questionnaires available. Labs/Outcomes No data to display [place] Suicide Severity Rating Scale Results 11/03/2024 14:27 [place] SUICIDE SEVERITY RATING SCALE (C-SSRS) Have [...] Support/Family;Hopeful attitude and or beliefs;Access to appropriate services;Identifies reasons for living;Help-Seeking Behaviors;Cares about job/school;Willing to participate in less restrictive means of help;Supervision and monitoring available;Future Plans Risk Factors Anxiety [place]-SUICIDE SEVERITY RATING SCALE Frequent Screener Ask [...] "depression and anxiety" who presents to the [facility] for initial evaluation. She describes [...] also continued to engage [facility] [place] [facility] [place] focus has remained on targeting her [...] bx, and has been encouraged to consider [place] [facility] as well. Her CBC returned reassuring, though [...] otherwise plan to continue as detailed below. DIAGNOSES: Major Depressive Disorder (PHQ9 from 06/25/23: [...] on the information above. . Return in Nov 2024 STRATEGIES: Supportive listening Problem solving I spent a total of 10-19 minutes (exact time 15 mins) on the date of service in [...] treatment team members or external physicians via [employer] messaging or telephonic communications. documented in this encounter Plan of Treatment Upcoming Encounters Date Type Department Care Team (Late st Contact Info) Description 12/02/2024 9:00 AM EST Telemedicine Psychiatry Lazaro Farmer [facility] [address] [place] [phone] Clementina Kincaid MD [address] [facility] [place] [phone] 02/01/2025 11:00 AM EDT Office Visit Gynecology/Obstetrics [facility] [address] [place] [address] Rochelle Corona CRNP [address] [place] [address] 03/16/2025 1:00 PM EDT Imaging Radiology [facility] [address] [place] [phone] 05/06/2025 11:00 AM EDT Office Visit Family Practice [facility] [address] [place] [address] Mariya Mario CRNP [address] [place] [address] Scheduled Procedures Name Priority Associated Diagnoses Date/Ti me COLONOSCOPY FLEXIBLE PROXIMA L DIAGNOSTIC Recall Special screening for malignant neoplasms, colon Health Maintenance Due Date Last Done Comments HPV/Co-Test 1993 Cologuard 2008 Fecal Occult Blood Test 2008 Sigmoidoscopy 2008 Pneumococcal Vaccine: 50+ Years (1 of 1 - PCV) 2013 Depression Monitoring 06/25/2024 06/25/2023 COVID-19 Vaccine ( season) 2024 07/02/2024, 07/24/2023, 07/11/2022, Additional history exists TSH 01/26/2025 01/27/2024, 11/29, 06/08/2020, Additional history exists Cervical Cancer Screening 08/03/2025 Mammogram 08/03/2025 08/03/2024, 04/2024, 07/31/2023, Additional history exists Pap Smear 08/03/2025 08/03/2022, 04/2020, 12/04/2019, Additional history exists Diabetes Screening 12/20/2026 12/20/2023, 0 03/19/2022, 06/08/2020, Additional history exists Colonoscopy 04/12/2027 04/12/2017, 03/28, 05/12/2014, Additional history exists Colorectal Cancer Screening 04/12/2027 Lipid Panel 10/23/2029 10/23/2024, 02/2020, 06/08/2020, Additional history exists DTap/Tdap Vaccines [...] type- Primary Attention deficit disorder with hyperactivity Generalized anxiety disorder MDD (major depressive disorder), recurrent, in full remission (HCC) Major depressive disorder, recurrent episode, in full remission Hoarding disorder documented in this encounter Care Teams Car Repair Supervisor Relationship Specialty Start Date End Date Ricki Doshi DO [address] [place] [address] PCP - General Family Medicine 10/13/19 documented as of this encounter
--- OUTSIDE RECORDS SUMMARY | 2024-12-04 14:02 | External Medical Summary | Summary of Care ---
Author Name Unknown Organization [facility] Address [address] [place] [address] Phone [phone] Care Team Providers Care Senior Telecommunications Technician Name Role Phone Ricki Doshiasael Primary Care Provider Reason for Visit * Reason Comments Outpatient Testing Encounter Details Date Type Department Care Team (Late st Contact Info) Description 10/23/2024 10:10 AM EST Laboratory Laboratory Sc[facility]ery [facility] [address] [place] [id number] [place], Lab Scenery [address] [place] [address] Hyperlipidemia, unspecified hyperlipidemia type Allergies Active Allergy Reactions Criticality Noted Date Comments Adhesive Tape 05/29/2016 Blister from core bx done 04/2016 Hydromorphone 08/07/2022 [place] unwell documented as of this encounter (statuses as of 10/23/2024) Medications Levothyroxine Sodium 25 MCG Oral Tablet (Levoxyl)Indicatio ns:Subclinical hypothyroidism Take 1 Tablet by mouth in the morning. (at least 30 min prior to breakfast or other meds). 30 Tablet 11 4 Active buPROPion HCl ER (XL) 150 MG Oral Tablet Extended Release 24 Hour (Wellbutrin XL)Indications:Low libido Take 1 Tablet by mouth in the morning. 30 Tablet 5 4 Active Amphetamine-Dextro amphet ER 5 MG Oral Capsule Extended Release 24 Hour (Adderall XR) Take 2 Capsules by mouth in the morning. 60 Capsule Active documented as of this encounter (statuses as of 10/23/2024) Active Problems Problem Noted Date Diagnosed Date [...] Overview (10/02/2017): Noted incidentally on MRI at [facility] Summer 2015. Will obtain record. Personal history of malignant neoplasm of breast 06/13/2016 Cancer Staging:Clinical: Unsigned Pathologic:Stage IA(T1c, N0, cM0) - Signed by Misha Rodriguez MD on 07/17/2016 Overview (01/13/2024): S/P the lumpectomy and sentinel lymph cira biopsy, T1c N0 M0, hormonal positive, Her2/Bianca--> negative, S/P adjuvant radiation treatment. 05/16/2021 Hematology/Oncology [facility] the Arimidex in 05/2021 Malaise and fatigue 06/02/2009 Arthralgia of temporomandibular joint 06/02/2009 documented as of this encounter (statuses as of 10/23/2024) Resolved Problems Problem Noted Date Diagnosed Date Resolved Date Malignant neoplasm of upper- outer quadrant of right breast in female, estrogen receptor positive 01/11/2022 01/13/2024 Overview (01/13/2024): Duplicate Abnormal mammogram with microcalcification 05/24/2015 10/02/2017 Coagulation disorder 12/28/2010 020 Overview (04/29/2011): MTHFR: POSITIVE FOR ONE COPY OF THE C677T MUTATION normal homocysteine level done at [facility] 12/20/10 Anticoagulation management encounter 12/25/2010 04/29/2011 senior care current use of ant icoagulant therapy 12/25/2010 04/29/2011 Overview (07/29/2017): ICD-10 update of inactive term Pulmonary embolus 12/20/2010 07/19/2022 Overview (04/29/2011): [facility] only risk factor was recent foot surgery. Temporomandibular joint diso rders, unspecified 06/02/2009 07/19/2022 documented as of this encounter (statuses as of 10/23/2024) Immunizations Name Administration Dates Next Due COVID-19 [...] the money to buy more. Never true 08/28/20 23 Within the past 12 months, t he food you bought just didn't last and you didn't have money to get more. Never true 08/28/2023 Childcare Answer Date Recorded Do you feel overwhelmed with taking care of a child, family member or friend? No 08/28/2023 Does your family need help f inding childcare? (Household - for ages 0-17 years) Not on file 08/28/2023 Clothing Answer Date Recorded Have you been unable to get clothing when it was really needed? No 08/28/2023 Is your family able to get c lothes or diapers when needed? (Household - for ages 0-17 years) Not on file 08/28/2023 Personal Safety Answer Date Recorded Do you feel unsafe or have concerns for your saf ety? No 08/28/2023 Do you have concerns for you r family's safety? (Household - for ages 0-17 years) Not on file 08/28/2023 Utilities Answer Date Recorded Do you have trouble paying y our heating, water, or electric bill? No 08/28/2023 Is your family able to pay t he heat, water, or electric bill? (Household - for ages 0-17 years) Not on file 08/28/2023 Does your family have access to good internet? (Household - for ages 0-17 years) Not on file 08/28/2023 Employment Status Answer Date Recorded Are you unemployed or without regular income? No 08/28/2023 Does the household have a re lar source of income? (Household - for ages 0-17 years) Not on file 08/28/2023 Social Connections Answer Date Recorded How often do you feel lonely or isolated from th ose around you? Often 08/28/2023 Financial Resource Strain Answer Date R ecorded Do you have any trouble payi ng for your medications, or do you think you might in the future? No 08/28/2023 Does your family have troubl e paying for medicine? (Household - for ages 0-17 years) Not on file 08/28/2023 Transportation Needs Answer Date Record ed READ ONLY Do you have troubl e getting a ride to medical visits or work? Never True 08/28/2023 Does your family have a hard time getting a ride to doctors visits? (Household - for ages 0-17 years) Not on file 08/28/2023 Has lack of transportation k ept you from medical appointments, meetings, work, or from getting things needed for daily living? Check all that apply. (Adult - for ages 18 years and over) Not on file 08/28/2023 Do you (or your family) have trouble finding or paying for a ride (transportation)? (Household - for ages 0-17 years) Not on file 08/28/2023 Housing Stability Answer Date Recorded Do you currently live in a s helter or have no steady place to sleep at night? No 08/28/2023 READ ONLY Do you think you a re at risk of becoming homeless? No 08/28/2023 Does your family worry about paying for your home or becoming homeless? (Household - for ages 0-17 years) Not on file 1 10/28/2022 Are you homeless or worried that you might be in the future? (Adult - for ages 18 years and over) Not on file Are you (or your family) dean eless or worried that you might be in the future? (Household - for ages 0-17 years) Not on file Food Insecurity Answer Date Recorded Do you need food for this week? No 08/28/2023 Are you able to get enough f ood for your family? (Household - for ages 0-17 years) Not on file 08/28/2023 Does your family need food t his week? (Household - for ages 0-17 years) Not on file 08/28/2023 Do you always have enough fo od for your family? 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 Not on file Not on file Not on file documented as of this encounter Plan of Treatment Upcoming Encounters Date Type Department Care Team (Late st Contact Info) Description 11/02/2024 1:40 PM EST Telemedicine Family Practice [facility] [address] [place] [address] Mariya Mario CRNP [address] [place] [address] 02/01/2025 11:00 AM EDT Office Visit Gynecology/Obstetrics [facility] [address] [place] [address] Backer, JONA Matthews [address] [place] [address] 03/16/2025 1:00 PM EDT Imaging Radiology [facility] [address] [place] [phone] Pending Results Name Type Priority Associated Diagnoses Date /Time LIPID PANEL WITH DIRECT LDL IF TG IS HIGH Lab Routine Hyperlipidemia, unspecified hyperlipidemia type 10/23/2024 10:06 AM EST Scheduled Procedures Name Priority Associated Diagnoses Date/Ti [...] 08/03/2025 08/03/2022, 04/2020, 12/04/2019, Additional history exists Lipid Panel 09/01/2025 09/01/2020, 05/28, 10/13/2019, Additional history exists Diabetes Screening 12/20/2026 12/20/2023, 0 03/19/2022, 06/08/2020, Additional history exists Colonoscopy 04/12/2027 04/12/2017, 03/28, 05/12/2014, Additional history exists Colorectal Cancer Screening 04/12/2027 DTap/Tdap Vaccines (3 - Td or Tdap) [...] as of this encounter Visit Diagnoses Diagnosis Hyperlipidemia, unspecified hyperlipidemia type documented in this encounter Care Teams Senior Telecommunications Technician Relationship Specialty Start Date End Date Ricki Doshi DO [address] [place] [address] PCP - General Family Medicine 10/13/19 documented as of this encounter
--- OUTSIDE RECORDS SUMMARY | 2024-12-04 14:02 | External Medical Summary | Summary of Care ---
Author Name Unknown Organization [facility] Address [address] [place] [address] Phone [phone] Care Team Providers Care Senior Resident Care Director Name Role Phone Tico Ricki Sherasael Primary Care Provider Reason for Visit * Reason Comments Outpatient Testing Encounter Details Date Type Department Care Team (Late st Contact Info) Description 11/03/2024 11:10 AM EST Laboratory Laboratory [facility] [address] [place] [id number] [place], Lab Scenery [address] [place] [address] Subclinical hypothyroidism Allergies Active Allergy Reactions Criticality Noted Date Comments Adhesive Tape 05/29/2016 Blister from core bx done 04/2016 Hydromorphone 08/07/2022 [place] unwell documented as of this encounter (statuses as of 11/03/2024) Medications Levothyroxine Sodium 25 MCG Oral Tablet (Levoxyl)Indicatio ns:Subclinical hypothyroidism Take 1 Tablet by mouth in the morning. (at least 30 min prior to breakfast or other meds). 30 Tablet 11 4 Active Amphetamine-Dextro amphet ER 5 MG Oral Capsule Extended Release 24 Hour (Adderall XR) Take 2 Capsules by mouth in the morning. 60 Capsule 4 Active Atorvastatin Calcium 20 MG Oral Tablet (Lipitor)Indicatio ns:Dyslipidemia Take 1 Tablet by mouth in the morning. 30 Tablet 5 5 Active buPROPion HCl ER (XL) 300 MG Oral Tablet Extended Release 24 Hour (Wellbutrin XL)Indications:Low libido Take 1 Tablet by mouth in the morning. 30 Tablet 5 5 Active documented as of this encounter [...] (10/02/2017): Noted incidentally on MRI at [facility] Summer 2015. Will obtain record. Personal history of malignant neoplasm of breast 06/13/2016 Cancer Staging:Clinical: Unsigned Pathologic:Stage IA(T1c, N0, cM0) - Signed by Misha Rodriguez MD on 07/17/2016 Overview (01/13/2024): S/P the lumpectomy and sentinel lymph cira biopsy, T1c N0 M0, hormonal positive, Her2/Bianca--> negative, S/P adjuvant radiation treatment. 05/16/2021 Hematology/Oncology [facility] the Arimidex in 05/2021 Malaise and [...] MUTATION normal homocysteine level done at [facility] 12/20/10 Anticoagulation management encounter 12/25/2010 04/29/2011 senior living current use of ant icoagulant therapy 12/25/2010 04/29/2011 Overview (07/29/2017): ICD-10 update of inactive term Pulmonary embolus 12/20/2010 07/19/2022 Overview (04/29/2011): [facility] only risk factor was recent foot surgery. [...] No 11/02/2024 Does the household have a [facility] source of income? 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 [place] [phone] Clementina Kincaid MD [address] [facility] [place] [address] 02/01/2025 11:00 AM EDT Office Visit Gynecology/Obstetrics [facility] [address] [place] [address] Backer, JONA Matthews [address] [place] [address] 03/16/2025 1:00 PM EDT Imaging Radiology [facility] [address] [place] [address] Pending Results Name Type Priority Associated Diagnoses Date /Time TSH WITH FREE T4 IF INDICATED Lab Routine Subclinical hypothyroidism 11/03/2024 10:58 AM EST THYROID ANTIBODY AND TPO ANTIBODY Lab Routine Subclinical hypothyroidism 11/03/2024 10:58 AM EST Scheduled Procedures Name Priority Associated [...] as of this encounter Visit Diagnoses Diagnosis Subclinical hypothyroidism Other specified acquired hypothyroidism documented in this encounter Care Teams Senior Resident Care Director Relationship Specialty Start Date End Date Ricki Doshi DO [address] [place] [address] PCP - General Family Medicine 10/13/19 documented as of this encounter
--- OUTSIDE RECORDS SUMMARY | 2024-12-04 14:02 | External Medical Summary | Summary of Care ---
Author Name Unknown Organization [facility] Address [address] [place] [address] Phone [phone] Care Team Providers Care Developer Designer Name Role Phone Kojo Doshir [place] Primary Care Provider Reason for Referral * Evaluate & Treat - Unlimited Visits (Within 30 days (routine)) - Authorized Specialty Diagnoses / Procedures Referred By Colby francis Referred To Contact Obstetrics/Gynecology / Gynecology Obstetrics Diagnoses Menopausal and postmenopausal disorder Mariya Mario CRNP [address] [place] [address] Phone: tel: fax: Referral ID Status Reason Start Date Expiration Date Visits Requested Visits Authorized [id number] Authorized Specialty Services Required 4 [phone] Question Answer Referral Priority Within 30 days (routine) What condition is the patient being seen for? Other Please use Ask-a-Doc if you are unsure about the referral I acknowledge Please provide more details discuss HRT Where should this appointment be scheduled? [facility] Comments BP 102/70 | Pulse 76 | Wt 167 lb (75.8 kg) | LMP (LMP Unknown) Reason for Visit * Reason Comments Re-Check Thyroid follow up. Encounter Details Date Type Department Care Team (Latest Contact Info) Description 09/18/2024 8:00 AM EST Office Visit Family [facility] [address] [facility] [place] [address] Mariya Mario CRNP [address] [place] [address] Low libido*; Menopausal and postmenopausal disorder; Screening for osteoporosis; Estrogen deficiency; Leg cramping; Paresthesia and pain of both upper extremities Allergies Active Allergy Reactions Criticality Noted Date Comments Adhesive Tape 05/29/2016 Blister from core bx done 04/2016 Hydromorphone 08/07/2022 [place] unwell documented as of this encounter (statuses as of 09/18/2024) Medications Levothyroxine Sodium 25 MCG Oral Tablet (Levoxyl)Indicatio ns:Subclinical hypothyroidism Take 1 Tablet by mouth in the morning. (at least 30 min prior to breakfast or other meds). 30 Tablet 11 02/11/20 24 Active Amphetamine-Dextro amphet ER 5 MG Oral Capsule Extended Release 24 Hour (Adderall XR) Take 2 Capsules by mouth in the morning. 60 Capsule 09/02/20 24 Active buPROPion HCl ER (XL) 150 MG Oral Tablet Extended Release 24 Hour (Wellbutrin XL)Indications:Low libido Take 1 Tablet by mouth in the morning. 30 Tablet 5 09/18/20 24 Active Lisdexamfetamine Dimesylate 30 MG Oral Capsule (Vyvanse) Take 1 Capsule by mouth in the morning. 30 Capsule 08/07/20 24 024 Discontin ued(Medic ation List Clean Up) documented as of this encounter (statuses as of 09/18/2024) Active Problems Problem Noted Date Diagnosed Date ADHD (attention deficit hype ractivity disorder), combined [...] (10/02/2017): Noted incidentally on MRI at [facility] Summer 2015. Will obtain record. Personal history of malignant neoplasm of breast 06/13/2016 Cancer Staging:Clinical: Unsigned Pathologic:Stage IA(T1c, N0, cM0) - Signed by Misha Rodriguez MD on 07/17/2016 Overview (01/13/2024): S/P the lumpectomy and sentinel lymph cira biopsy, T1c N0 M0, hormonal positive, Her2/Bianca--> negative, S/P adjuvant radiation treatment. 05/16/2021 Hematology/Oncology [facility] the Arimidex in 05/2021 Malaise and fatigue 06/02/2009 Arthralgia of temporomandibular joint 06/02/2009 documented as of this encounter (statuses as of 09/18/2024) Resolved Problems Problem Noted Date Diagnosed Date Resolved Date Malignant neoplasm of upper- outer quadrant of right breast in female, estrogen receptor positive 01/11/2022 01/13/2024 Overview (01/13/2024): Duplicate Abnormal mammogram with microcalcification 05/24/2015 10/02/2017 Coagulation disorder 12/28/2010 020 Overview (04/29/2011): MTHFR: POSITIVE FOR ONE COPY OF THE C677T MUTATION normal homocysteine level done at [facility] 12/20/10 Anticoagulation management encounter 12/25/2010 04/29/2011 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 History of Present Illness Destini Ramsey is a 59 year old female that presents for Re-Check (Thyroid follow up.) HPI Here to discuss several issues: Libido Pain with intercourse Lower leg cramping daytime and nightime as well as sometimes hand cramping in 4th and 5th digits. Also gets some numbness in 4th 5th digits both hands - notices it when she's holding a book up reading Physical Exam Vitals: 09/18/24 0808 Pulse: 76 BP: 102/70 Physical Exam Vitals reviewed. Constitutional: General: She is not in acute distress. Musculoskeletal: Right lower leg: No edema. Left lower leg: No edema. Skin: General: Skin is warm and dry. Neurological: Mental Status: She is alert and oriented to person, place, and time. Psychiatric: Behavior: Behavior normal. Thought Content: Thought content normal. Assessment and Plan Low libido Discussed r/b/ae Often multifactorial and encourage discussion with motorcycle repairer re: dyspareunia/vaginal dryness/HRT in addition to mood medication - buPROPion HCl ER (XL) 150 MG Oral Tablet Extended Release 24 Hour (Wellbutrin XL); Take 1 Tablet by mouth in the morning. Menopausal and postmenopausal disorder - REAL ESTATE ASSOCIATE REFERRAL OP Screening for osteoporosis - DEXA SCAN/BONE MINERAL AXIAL Estrogen deficiency - DEXA SCAN/BONE MINERAL AXIAL Leg cramping Add mag and b complex OTC supplements Paresthesia and pain of both upper extremities Possibly CTS - she wants to hold off on EMG for now Wrap-Up Follow-up: Return in about 6 weeks (around 10/30/2024). | Check-out note: Schedule motorcycle repairer - prefer teodoro backer Also needs 6wk follow up with me - please make video Schedule dexa Time: I spent a total of 30-39 minutes (exact time 35 mins) on the date of service in preparation, delivery, and documentation of the care provided to Destini Ramsey excluding any time spent in the performance of separately billed services. documented in this encounter Plan of Treatment Upcoming Encounters Date Type Department Care Team (Late st Contact Info) Description 10/05/2024 11:30 AM EST Telemedicine Psychiatry Christopher Graham [address] [phone] Clementina Kincaid MD [address] [phone] 11/02/2024 1:40 PM EST Telemedicine Family Practice [facility] [address] [facility] [place] [address] Mariya Mario CRNP [address] [place] [address] 02/01/2025 11:00 AM EDT Office Visit Gynecology/Obstetrics [facility] [address] [place] [address] Backer, JONA Matthews [address] [place] [address] 03/16/2025 1:00 PM EDT Imaging Radiology, [address] [place] [address] Scheduled Orders Name Type Priority Associated Diagnoses Orde r Schedule DEXA SCAN/BONE MINERAL AXIAL Medical Imaging Routine Screening for osteoporosis Estrogen deficiency Ordered: 09/18/2024 Scheduled Procedures Name Priority Associated Diagnoses Date/Ti me COLONOSCOPY FLEXIBLE PROXIMA L DIAGNOSTIC Recall Special screening for malignant neoplasms, colon Scheduled Referrals Name Type Priority Associated Diagnoses Orde r Schedule REAL ESTATE ASSOCIATE REFERRAL OP Referral Within 30 day s (routine) Menopausal and postmenopausal disorder Ordered: 09/18/2024 Health Maintenance Due Date Last Done Comments HPV/Co-Test 1993 Cologuard 2008 Fecal Occult Blood Test 2008 Sigmoidoscopy 2008 Depression Monitoring 06/25/2024 06/25/2023 COVID-19 Vaccine ( [...] on patient's age to complete this topic Pneumococcal Vaccine: Pediatrics (0 to 5 Years) and At-Risk Patients (6 to 64 Years) Aged Out No longer eligible based on patient's age to complete this topic documented as of this encounter Medical Devices Not on filedocumented as of this encounter Visit Diagnoses Diagnosis Low libido- Primary Decreased libido Menopausal and postmenopausal disorder Unspecified menopausal and postmenopausal disorder Screening for osteoporosis Special screening for osteoporosis Estrogen deficiency Other ovarian failure Leg cramping Paresthesia and pain of both upper extremities Disturbance of skin sensation documented in this encounter Care Teams Developer Designer Relationship Specialty Start Date End Date Ricki Doshi DO [address] [place] [address] PCP - General Family Medicine 10/13/19 documented as of this encounter"
--- OUTSIDE RECORDS SUMMARY | 2024-12-04 14:02 | External Medical Summary | Summary of Care ---
Author Name Unknown Organization [facility] Address [address] [facility] [address] Phone [phone] Care Team Providers Care Pharmacy Aide Name Role Phone Ricki Doshi DO Primary Care Provider Reason for Visit * Reason Onset Date Comments Medication Refill 11/03/2024 Encounter Details Date Type Department Care Team (Late st Contact Info) Description 11/03/2024 Refill [facility] [address] [place] [address] Ricki Doshi DO [address] [place] [address] Allergies Active Allergy Reactions Criticality Noted Date Comments Adhesive Tape 05/29/2016 Blister from core bx done 04/2016 Hydromorphone 08/07/2022 [employer] unwell documented as of this encounter (statuses [...] Overview (10/02/2017): Noted incidentally on MRI at [facility] Summer 2015. Will obtain record. Personal history of malignant neoplasm of breast 06/13/2016 Cancer Staging:Clinical: Unsigned Pathologic:Stage IA(T1c, N0, cM0) - Signed by Misha Rodriguez MD on 07/17/2016 Overview (01/13/2024): S/P the lumpectomy and sentinel lymph cira biopsy, T1c N0 M0, hormonal positive, Her2/Bianca--> negative, S/P adjuvant radiation treatment. 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 source of income? 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 I advised her to let Dr know next time as well. Thank you, Brenda Vidal shipping order clerk Air Carrier Operations Inspector II [facility] 11/03/2024,9:41 AM documented in this encounter Plan of Treatment Upcoming Encounters Date Type Department Care Team (Late st Contact Info) Description 11/03/2024 2:00 PM EST Telemedicine Psychiatry Lazaro Farmer [address] [place] [phone] Clementina Kincaid MD [address] [place] [address] 02/01/2025 11:00 AM EDT Office Visit Gynecology/Obstetrics [facility] [address] [place] [address] [place], JONA Matthews [address] [place] [address] 03/16/2025 1:00 PM EDT Imaging [facility] [address] [place] [address] Scheduled Procedures Name Priority Associated Diagnoses Date/Ti me COLONOSCOPY FLEXIBLE PROXIMA L DIAGNOSTIC Recall Special screening for malignant neoplasms, colon Health Maintenance Due Date Last Done Comments HPV/Co-Test 1993 Cologuard 2008 Fecal Occult Blood Test 2008 Sigmoidoscopy 2008 Pneumococcal Vaccine: 50+ Years (1 of 1 - PCV) 2013 Depression Monitoring 06/25/2024 06/25/2023 COVID-19 Vaccine (2023- season) 2024 07/02/2024, 07/24/2023, 07/11/2022, Additional history exists TSH 01/26/2025 01/27/2024, 02/2 12/2023, 06/08/2020, Additional history exists Cervical Cancer Screening 08/03/2025 Mammogram 08/03/2025 08/03/2024, 04/2024, 07/31/2023, Additional history exists Pap Smear 08/03/2025 08/03/2022, 04/2020, 12/04/2019, Additional history exists Diabetes Screening 12/20/2026 12/20/2023, 0 03/19/2022, 06/08/2020, Additional history exists Colonoscopy 04/12/2027 04/12/2017, 03/28, 05/12/2014, Additional history exists Colorectal Cancer Screening 04/12/2027 Lipid Panel 10/23/2029 10/23/2024, 110 02/2020, 06/08/2020, Additional history exists DTap/Tdap Vaccines [...] filedocumented as of this encounter Care Teams Pharmacy Aide Relationship Specialty Start Date End Date Ricki Doshi DO [address] [place] [address] PCP - General Family Medicine 10/13/19 documented as of this encounter
--- OUTSIDE RECORDS SUMMARY | 2024-12-04 14:02 | External Medical Summary | Summary of Care ---
Author Name Unknown Organization [facility] Address [address] [facility] [place] [address] Phone [phone] Care Team Providers Care Orthopedic Shoe Maker Name Role Phone Ricki Doshi Primary Care Provider Reason for Visit * Reason Onset Date Comments Medication Refill 09/30/2024 Encounter Details Date Type Department Care Team (Late st Contact Info) Description 09/30/2024 Refill Psychiatry [facility] [address] [place] [address] Clementina Kincaid MD [address] [place] [address] Allergies Active Allergy Reactions Criticality Noted Date Comments Adhesive Tape 05/29/2016 Blister from core bx done 04/2016 Hydromorphone 08/07/2022 [place] unwell documented as of this encounter (statuses as of 09/30/2024) Medications Levothyroxine Sodium 25 MCG Oral Tablet (Levoxyl)Indicatio ns:Subclinical hypothyroidism Take 1 Tablet by mouth in the morning. (at least 30 min prior to breakfast or other meds). 30 Tablet 11 02/11/20 24 Active buPROPion HCl ER (XL) 150 MG Oral Tablet Extended Release 24 Hour (Wellbutrin XL)Indications:Low libido Take 1 Tablet by mouth in the morning. 30 Tablet 5 09/18/20 24 Active Amphetamine-Dextro amphet ER 5 MG Oral Capsule Extended Release 24 Hour (Adderall XR) Take 2 Capsules by mouth in the morning. 60 Capsule 09/30/20 24 Active Amphetamine-Dextro amphet ER 5 MG Oral Capsule Extended Release 24 Hour (Adderall XR) Take 2 Capsules by mouth in the morning. 60 Capsule 09/02/20 24 024 Discontin ued(Refil l) documented as of this encounter (statuses as of 09/30/2024) Active Problems Problem Noted Date Diagnosed Date [...] Overview (10/02/2017): Noted incidentally on MRI at [facility] Summer 2015. Will obtain record. Personal history of malignant neoplasm of breast 06/13/2016 Cancer Staging:Clinical: Unsigned Pathologic:Stage IA(T1c, N0, cM0) - Signed by Misha Rodriguez MD on 07/17/2016 Overview (01/13/2024): S/P the lumpectomy and sentinel lymph cira biopsy, T1c N0 M0, hormonal positive, Her2/Bianca--> negative, S/P adjuvant radiation treatment. 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 Temporomandibular joint diso rders, unspecified 06/02/2009 07/19/2022 documented as of this encounter (statuses as of 09/30/2024) Immunizations Name Administration Dates Next Due COVID-19 [...] No 08/28/2023 Does the household have a [facility] source of income? 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 Authorizing Provider: CLEMENTINA KINCAID * Telephone Encounter - Cathy Sesay LPN - 09/30/2024 8:29 AM ESTPending Prescriptions: Disp Refills Amphetamine-Dextroamphet ER 5 MG Oral Caps*60 Cap*0 Sig: Take 2 Capsules by mouth in the morning. * Telephone Encounter - Cathy Sesay LPN - 09/30/2024 8:28 AM EST Refill request from patient (Roderick) for Adderall XR. Medication last filled on 09/02/24 with 0 refills. Patient last seen on 08/31/24 with return appointment scheduled for 10/05/24. Patient had 0 cancelled appointments and 0 NO SHOW appointments. documented in this encounter Plan of Treatment Upcoming Encounters Date Type Department Care Team (Late st Contact Info) Description 10/05/2024 11:30 AM EST Telemedicine Psychiatry Christopher [facility] [address] [place] [phone] Clementina Kincaid MD [address] [place] [phone] 11/02/2024 1:40 PM EST Telemedicine Family Practice [facility] [address] [place] [address] Mariya Mario CRNP [address] [place] [address] 02/01/2025 11:00 AM EDT Office Visit Gynecology/Obstetrics [facility] [address] [place] [address] [place], JONA Matthews [address] [place] [address] 03/16/2025 1:00 PM EDT Imaging Radiology, [place] [address] [facility] [address] Scheduled Procedures Name Priority Associated Diagnoses Date/Ti [...] filedocumented as of this encounter Care Teams Orthopedic Shoe Maker Relationship Specialty Start Date End Date Ricki Doshi DO [address] [place] [address] PCP - General Family Medicine 10/13/19 documented as of this encounter
--- OUTSIDE RECORDS SUMMARY | 2024-12-04 14:02 | External Medical Summary | Summary of Care ---
Author Name Unknown Organization [facility] Address [address] [facility] [place] [place] [address] Phone [phone] Care Team Providers Care Showroom Salesperson Name Role Phone Ricki Doshiasael Primary Care Provider Reason for Visit * Reason Comments Return Visit 6 week herrera * Evaluate & Treat - Unlimited Visits (Within 30 days (routine)) - Authorized Specialty Diagnoses / Procedures Referred By Colby francis Referred To Contact Obstetrics/Gynecology / Gynecology Obstetrics Diagnoses Menopausal and postmenopausal disorder Mariya Mario CRNP [address] [place] [address] Phone: tel: fax: Referral ID Status Reason Start Date Expiration Date Visits Requested Visits Authorized [id number] Authorized Specialty Services Required [phone] Encounter Details Date Type Department Care Team (Late st Contact Info) Description 11/02/2024 1:40 PM EST Telemedicine Family Practice [facility] [address] [place] [address] Mariya Mario CRNP [address] [place] [address] Dyslipidemia*; Low libido; Hypothyroidism, unspecified type Allergies Active Allergy Reactions Criticality Noted Date Comments Adhesive Tape 05/29/2016 Blister from core bx done 04/2016 Hydromorphone 08/07/2022 [place] unwell documented as of this encounter (statuses as of 11/02/2024) Medications Levothyroxine Sodium 25 MCG Oral Tablet (Levoxyl)Indicati ons:Subclinical hypothyroidism Take 1 Tablet by mouth in the morning. (at least 30 min prior to breakfast or other meds). 30 Tablet 11 02/11/20 24 Active Amphetamine-Dextr oamphet ER 5 MG Oral Capsule Extended Release 24 Hour (Adderall XR) Take 2 Capsules by mouth in the morning. 60 Capsule 09/30/20 24 Active Atorvastatin Calcium 20 MG Oral Tablet (Lipitor)Indicati ons:Dyslipidemia Take 1 Tablet by mouth in the morning. 30 Tablet 5 11/02/19 25 Active buPROPion HCl ER (XL) 300 MG Oral Tablet Extended Release 24 Hour (Wellbutrin XL)Indications:Lo w libido Take 1 Tablet by mouth in the morning. 30 Tablet 5 11/02/19 25 Active buPROPion HCl ER (XL) 150 MG Oral Tablet Extended Release 24 Hour (Wellbutrin XL)Indications:Lo w libido Take 1 Tablet by mouth in the morning. 30 Tablet 5 09/18/20 24 025 Discontinued documented as of this encounter (statuses as of 11/02/2024) Active Problems Problem Noted Date Diagnosed Date [...] (10/02/2017): Noted incidentally on MRI at [facility] Summer 2015. Will obtain record. Personal history of malignant neoplasm of breast 06/13/2016 Cancer Staging:Clinical: Unsigned Pathologic:Stage IA(T1c, N0, cM0) - Signed by Misha Rodriguez MD on 07/17/2016 Overview (01/13/2024): S/P the lumpectomy and sentinel lymph cira biopsy, T1c N0 M0, hormonal positive, Her2/Bianca--> negative, S/P adjuvant radiation treatment. 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 History of Present Illness Destini Ramsey is a 59 year old female that presents for Return Visit (6 week herrera ) HPI Here in follow up Wellbutrin maybe making her snack more at night but otherwise tolerating ok Reviewed lipids - LDL very high last several years. Ok with starting statin. Due for thyroid labs - were not drawn when lipids were done Current Outpatient Medications Medication Sig Dispense Refill Atorvastatin Calcium 20 MG Oral Tablet (Lipitor) Take 1 Tablet by mouth in the morning. 30 Tablet 5 buPROPion HCl ER (XL) 300 MG Oral Tablet Extended Release 24 Hour (Wellbutrin XL) Take 1 Tablet by mouth in the morning. 30 Tablet 5 Amphetamine-Dextroamphet ER 5 MG Oral Capsule Extended Release 24 Hour (Adderall XR) Take 2 Capsules by mouth in the morning. 60 Capsule 0 Levothyroxine Sodium 25 MCG Oral Tablet (Levoxyl) Take 1 Tablet by mouth in the morning. (at least 30 min prior to breakfast or other meds). 30 Tablet 11 No current facility-administered medications for this visit. Physical Exam There were no vitals filed for this visit. Physical Exam Constitutional: General: She is not in acute distress. Neurological: Mental Status: She is alert and oriented to person, place, and time. Psychiatric: Behavior: Behavior normal. Thought Content: Thought content normal. Assessment and Plan Dyslipidemia - Atorvastatin Calcium 20 MG Oral Tablet (Lipitor); Take 1 Tablet by mouth in the morning. - LIPID PANEL WITH DIRECT LDL IF TG IS HIGH; Future Low libido - buPROPion HCl ER (XL) 300 MG Oral Tablet Extended Release 24 Hour (Wellbutrin XL); Take 1 Tablet by mouth in the morning. Hypothyroidism, unspecified type Recheck labs ordered Wrap-Up Follow Up: Return in about 6 months (around 05/02/2025). Time: I spent a total of 20-29 minutes (exact time 20 mins) on the date of service in preparation, delivery, and documentation of the care provided to Destini Ramsey excluding any time spent in the performance of separately billed services. Telemedicine: Patient location: HOME. I was in a hospital or clinic location. After connecting through [employer],patient was verified with two unique identifiers. Patient (or authorized legal bilingual sales representative) was then informed that this was a Telemedicine visit and being conducted confidentially over secure lines. Methods to assure confidentiality were taken. Patient acknowledged consent and understanding of pr ivacy and security of the Telemedicine visit. The patient agreed to participate. documented in this encounter Nursing Notes * Crystal Huynh LPN - 11/02/2024 1:50 PM EST The patient has been properly identified by confirmation of name and date of . Chief Complaint Patient presents with Return Visit 6 week herrera Pt states she has been feeling better. Noticed increased hunger at night around bed time. Snacking on nuts. documented in this encounter Plan of Treatment Upcoming Encounters Date Type Department Care Team (Late st Contact Info) Description 02/01/2025 11:00 AM EDT Office Visit Gynecology/Obstetrics [facility] [address] [place] [address] [place], JONA Matthews [address] [place] [address] 03/16/2025 1:00 PM EDT Imaging Radiology [facility] [address] [place] [phone] Scheduled Orders Name Type Priority Associated Diagnoses Orde r Schedule LIPID PANEL WITH DIRECT LDL IF TG IS HIGH Lab Routine Dyslipidemia Expected: 05/02/2025 (Approximate), Expires: 11/02/2025 Scheduled Procedures Name Priority Associated Diagnoses Date/Ti [...] 07/11/2022, Additional history exists TSH 01/26/2025 01/27/2024, 2 12/2023, 06/08/2020, Additional history exists Cervical Cancer Screening 08/03/2025 Mammogram 08/03/2025 08/03/2024, 100 04/2024, 07/31/2023, Additional history exists Pap Smear 08/03/2025 08/03/2022, 0 04/2020, 12/04/2019, Additional history exists Diabetes Screening [...] as of this encounter Visit Diagnoses Diagnosis Dyslipidemia- Primary Other and unspecified hyperlipidemia Low libido Decreased libido Hypothyroidism, unspecified type documented in this encounter Care Teams Showroom Salesperson Relationship Specialty Start Date End Date Ricki Doshi DO [address] [place] [address] PCP - General Family Medicine 10/13/19 documented as of this encounter
--- OUTSIDE RECORDS SUMMARY | 2024-12-04 14:02 | External Medical Summary ---
Author Name Unknown Address Unknown Organization K01:[facility] - [address] [place] [address] Laboratory Report Ordering Provider Test Date Status DANTE VALENTINE 10/23/2024 10:06:30 Final Observation Date Value Abnormality Reference (Units ) Status Triglyceride 10/23/2024 10:06:30 82 <=174 ( mg/dL) Final Triglyceride Reference Range s (mg/dL):
<150 Acceptable
150-174 Borderline high
175-499 High
>=500 Very high Cholesterol 10/23/2024 10:06:30 280 Above high normal <200 (mg/dL) Final Total Cholesterol Reference Ranges (mg/dL):
<200 Desirable
200-239 Borderline high
>=240 High HDL 10/23/2024 10:06:30 73 >49 (mg/dL ) Final HDL Cholesterol Reference Ra nges (mg/dL):
>=60 High (Desirable)
<50 Low (Undesirable) For Females
<40 Low (Undesirable) For Males NON-HDL CHOLESTEROL 10/23/2024 10:06:30 207 Above high normal <=159 (mg/dL) Final Non-HDL Cholesterol Referenc e Range (mg/dL):
<100 Target level for high risk ASCVD patient
<130 Optimal for general population
130-159 Near optimal for general population
160-189 Borderline High
190-219 High
>=220 Very High LDL, (calculated) 10/23/2024 10:06:30 191 Above high n ormal <=129 (mg/dL) Final LDL Cholesterol Reference Ra nges (mg/dL):
<70 Target level for high risk ASCVD patient
<100 Optimal for general population
100-129 Near optimal for general population
130-159 Borderline high
160-189 High
>=190 Very high Performing Location [facility] [address] [facility] [address]
--- OUTSIDE RECORDS SUMMARY | 2024-12-04 14:02 | External Medical Summary | Summary of Care ---
Author Name Unknown Organization [facility] Address [address] [facility] [place] [address] Phone [phone] Care Team Providers Care Offset Proof Press Operator Name Role Phone Kojo Doshir [place] Primary Care Provider Encounter Details Date Type Department Care Team (Late st Contact Info) Description 10/05/2024 11:30 AM EST Telemedicine Psychiatry Christopher Graham [address] [phone] Clementina Kincaid MD [address] [place] [phone] Generalized anxiety disorder*; MDD (major depressive disorder), recurrent, in full remission (HCC); ADHD (attention deficit hyperactivity disorder), combined type; Hoarding disorder Allergies Active Allergy Reactions Criticality Noted Date Comments Adhesive Tape 05/29/2016 Blister from core bx done 04/2016 Hydromorphone 08/07/2022 [place] unwell documented as of this encounter (statuses as of 10/06/2024) Medications Levothyroxine Sodium 25 MCG Oral Tablet [...] in the morning. 60 Capsule 4 Active documented as of this encounter (statuses as of 10/06/2024) Active Problems Problem Noted Date Diagnosed Date [...] Overview (10/02/2017): Noted incidentally on MRI at [facility] Summer 2015. Will obtain record. Personal history of malignant neoplasm of breast 06/13/2016 Cancer Staging:Clinical: Unsigned Pathologic:Stage IA(T1c, N0, cM0) - Signed by Misha Rodriguez MD on 07/17/2016 Overview (01/13/2024): S/P the lumpectomy and sentinel lymph cira biopsy, T1c N0 M0, hormonal positive, Her2/Bianca--> negative, S/P adjuvant radiation treatment. 05/16/2021 Hematology/Oncology [facility] the Arimidex in 05/2021 Malaise and fatigue 06/02/2009 Arthralgia of temporomandibular joint 06/02/2009 documented as of this encounter (statuses as of 10/06/2024) Resolved Problems Problem Noted Date Diagnosed Date Resolved Date Malignant neoplasm of upper- outer quadrant of right breast in female, estrogen receptor positive 01/11/2022 01/13/2024 Overview (01/13/2024): Duplicate Abnormal mammogram with microcalcification 05/24/2015 10/02/2017 Coagulation disorder 12/28/2010 020 Overview (04/29/2011): MTHFR: POSITIVE FOR ONE COPY OF THE C677T MUTATION normal homocysteine level done at [facility] 12/20/10 Anticoagulation management encounter 12/25/2010 04/29/2011 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 Patient location: HOME. I was not in a hospital or clinic location. After connecting through televideo, patient was verified with two unique identifiers. 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 Methods to assure confidentiality were taken. Patient acknowledged consent and understanding of privacy and security of the Telemedicine visit. The patient agreed to participate. TELEPSYCHIATRY RETURN VISIT NOTE Psychiatry, [address] [address] 09/24/2023 Destini Ramsey [id number] PATIENT CONTACT INFORMATION: [address] [facility] [address] There is no home phone number on file. Extended Emergency Contact Information Primary Emergency Contact: LASHAWNSweetiePEPE Mobile Relation: Other - (no specific identity) Secondary Emergency Contact: HANNAH MCCULLOUGH Relation: Parent CC: Routine Clinic Follow Up INTERVAL HISTORY: Pt presents on time for today's appt. Since her last clinic visit, she reports that she's been doing "ok". She endorses sustained mood stability w/ continuation of adderall, denying concern for feelings of depression inc helplessness, hopelessness, SI or HI. She also reports that her anxiety has rem ained well managed, denying excessive worry or feelings of panic. She has continued to tolerate adderall well also, denying headaches, chest pain, or vision changes. She also identifies it as being beneficial, stating she has been able to focus/complete tasks appropriately. She has also navigated some more recent challenges inv her cat (who she had to put down recently) and work well. She continues to also meet w/ her therapist regularly, which is also going well. 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 She has continued to struggle w/ decreased libido, which she states is a longstanding issue for her. She recently met w/ her PCP whom she reports initiated bupropion to assist w/ this, as well as making arrangements for pt to meet w/ senior net engineer in the upcoming months. Pt confirms that she has continuedto take bupropion xl 150mg for several weeks, denying any significant change thus far in mood or anxiety. Additional time is spent discussing it's role as an AD, as well as the risks assoc w/ it including seizures and worsening anxiety/irritability. Also discussed the risk for former to be increased when used in conjunction w/ adderall. Of note, pt denies hx of seizures though reports that she did engage in purging as an adolescent, which she last completed around age 16. PDMP Review: I have reviewed the patients controlled substance dispensing history in the Prescription Drug Monitoring Program in compliance with the [facility] regulations before prescribing a controlled substance. Other Dispensed Days Supply Quantity Provider Pharmacy MIXED AMPHETAMINE SALTS (Capsule, Extended Release) 09/30/2024 30 60 Unit(s) Not Specified CLEMENTINA KINCAID [facility]... MIXED AMPHETAMINE SALTS (Capsule, Extended Release) 09/02/2024 30 60 Unit(s) Not Specified CLEMENTINA KINCAID [facility]... ADDERALL XR (Capsule, Extended Release) 07/24/2024 30 30 Unit(s) Not Specified CLEMENTINA KINCAID [facility] #... METHYLPHENIDATE HCL (Tablet, Extended Release) 06/19/2024 30 30 Unit(s) Not Specified CLEMENTINA KINCAID [facility]... METHYLPHENIDATE HCL (Tablet, Extended Release) 06/04/2024 30 30 Unit(s) Not Specified CLEMENTINA KINCAID [facility]... METHYLPHENIDATE HCL (Tablet, Extended Release) 06/04/2024 30 30 Unit(s) Not Specified CLEMENTINA KINCAID [facility]... METHYLPHENIDATE HCL (Tablet, Extended Release) 05/07/2024 30 30 Unit(s) Not Specified CLEMENTINA KINCAID [facility] REVIEW OF SYSTEMS: Review of systems including cardiac, pulmonary, constitutional, dermatologic, rheumatologic, GI, , MSK, psychiatric, and neurologic systems was negative except as in HPI +decreased libido HOME MEDICATIONS: Current Outpatient Medications Medication Sig Dispense Refill Amphetamine-Dextroamphet ER 5 MG Oral Capsule Extended Release 24 Hour (Adderall XR) Take 2 Capsules by mouth in the morning. 60 Capsule 0 buPROPion HCl ER (XL) 150 MG Oral [...] Blister from core bx done 04/2016 Hydromorphone [place] unwell VITAL SIGNS: LMP (LMP Unknown) MENTAL STATUS EXAM: General Appearance: Appears stated age, dressed appropriately for weather, good hygiene, normal body habitus and posture, limited eye contact with normal gaze. Attitude/Behavior: Appropriate, cooperative Motor Behavior: improved pma, no pmr. No evidence of catatonia or abnormal movement. Gait is withinnormal limits and appropriate Affect: +euthymic, stable, mood congruent Mood: "ok" Thought Process: +linear, though some increase in [...] questionnaires available. Labs/Outcomes No data to display [place] Suicide Severity Rating Scale Results 10/05/2024 07:54 [place] SUICIDE SEVERITY RATING SCALE (C-SSRS) Have [...] beliefs;Access to appropriate services;Identifies reasons for living;Help-Seeking Behaviors;Willing to participate in less restrictivemeans of help;Supervision and monitoring available;Future Plans;Cares about job/school Risk [...] "depression and anxiety" who presents to the [facility] for initial evaluation. [...] also continued to engage in therapy through [facility] where focus has remained on targeting her [...] bx, and has been encouraged to consider [facility] as well. Her CBC returned reassuring, though [...] continuing to monitor for such moving forward. DIAGNOSES: Major Depressive Disorder (PHQ9 from 06/25/23: [...] on the information above. . Return in Oct 2024 STRATEGIES: Supportive listening Problem solving I spent a total of 20-29 minutes (exact time 24 mins) on the date of service in [...] treatment team members or external physicians via [employer] messaging or telephonic communications. documented in this encounter Plan of Treatment Upcoming Encounters Date Type Department Care Team (Late st Contact Info) Description 11/02/2024 1:40 PM EST Telemedicine Family Practice [facility] [address] [phone] Mariya Mario CRNP [address] [address] 02/01/2025 11:00 AM EDT Office Visit Gynecology/Obstetrics [facility] [address] [place] [address] Backer, Rochelle Mendoza, JONA [address] [place] [address] 03/16/2025 1:00 PM EDT Imaging Radiology, [place] [id number] [facility] [address] Scheduled Procedures Name Priority Associated Diagnoses Date/Ti [...] as of this encounter Visit Diagnoses Diagnosis Generalized anxiety disorder- Primary MDD (major depressive disorder), recurrent, in full remission (HCC) Major depressive disorder, recurrent episode, in full remission ADHD (attention deficit hyperactivity disorder), combined type Attention deficit disorder with hyperactivity Hoarding disorder documented in this encounter Care Teams Offset Proof Press Operator Relationship Specialty Start Date End Date Ricki Doshi DO [address] [place] [address] PCP - General Family Medicine 10/13/19 documented as of this encounter
--- OUTSIDE RECORDS SUMMARY | 2024-12-04 14:02 | External Medical Summary ---
Author Name Unknown Address Unknown Organization K01:[facility] [place] [address] [place] [address] Laboratory Report Ordering Provider Test Date Status [facility] 11/03/2024 10:58:16 Final Observation Date Value Abnormality Reference (Units ) Status Thyroperoxidase Ab [Units/volume] in Serum or Plasma by Immunoassay 11/03/2024 10:58:16 <5.0 <34.0 (IU/mL) Final Thyroglobulin Ab 11/03/2024 10:58:16 <15.0 <115.0 (IU/mL) Final Performing Location [facility] [address] [place] [address]
--- OUTSIDE RECORDS SUMMARY | 2024-12-04 14:03 | External Medical Summary | Summary of Care ---
Author Name Unknown Organization [facility] Address [address] [place] [address] Phone [phone] Care Team Providers Care Swedish Masseuse Name Role Phone Ricki Doshi Primary Care Provider Reason for Visit * Reason Onset Date Comments Med Request 07/21/2024 Encounter Details Date Type Department Care Team (Late st Contact Info) Description 07/21/2024 Telephone Psychiatry, [place] [address] [place], [place] [id number] Codi Shaw MD [address] [place] [address] Med Request Allergies Active Allergy Reactions Criticality Noted Date Comments Adhesive Tape 05/29/2016 Blister from core bx done 04/2016 Hydromorphone 08/07/2022 [place] unwell documented as of this encounter (statuses as of 08/07/2024) Medications Medication Sig Dispensed Refills Start Date End Date Status Levothyroxine Sodium 25 MCG Oral Tablet (Levoxyl)Indications :Subclinical hypothyroidism Take 1 Tablet by mouth in the morning. (at least 30 min prior to breakfast or other meds). 30 Tablet 11 02/11/2024 Active Lisdexamfetamine Dimesylate 30 MG Oral Capsule (Vyvanse) Take 1 Capsule by mouth in the morning. 30 Capsule 07/21/2024 Active Amphetamine-Dextroam phet ER 10 MG Oral Capsule Extended Release 24 Hour (Adderall XR) Take 1 Capsule by mouth in the morning. 30 Capsule 07/20/2024 4 Discontinue d(Refill) Amphetamine-Dextroam phet ER 10 MG Oral Capsule Extended Release 24 Hour (Adderall XR) Take 1 Capsule by mouth in the morning. 30 Capsule 07/21/2024 4 Discontinue d(Medicatio n/Dose Changed) documented as of this encounter (statuses as of 08/07/2024) Active Problems Problem Noted Date Diagnosed Date MDD (major depressive disord er), recurrent, in [...] 1 12/14/2018 History of bowel resection 10/02/2017 Overview: Diverticulitis. Financial difficulties 10/02/2017 Overview: On MA. Menopause 10/02/2017 Overview: At 51 yo Pap 2016 negative. Bartholin's gland cyst 10/02/2017 Overview: Noted incidentally on MRI at [facility] Summer 2015. Will obtain record. Personal history of malignant neoplasm of breast 06/13/2016 Cancer Staging:Clinical: Unsigned Pathologic:Stage IA(T1c, N0, cM0) - Signed by Misha Rodriguez MD on 07/17/2016 Overview: S/P the lumpectomy and sentinel lymph cira biopsy, T1c N0 M0, hormonal positive, Her2/Bianca--> negative, S/P adjuvant radiation treatment. 05/16/2021 Hematology/Oncology [facility] the Arimidex in 05/2021 Malaise and fatigue 06/02/2009 Arthralgia of temporomandibular joint 06/02/2009 documented as of this encounter (statuses as of 08/07/2024) Resolved Problems Problem Noted Date Diagnosed Date Resolved Date Malignant neoplasm of upper- outer quadrant of right breast in female, estrogen receptor positive 01/11/2022 01/13/2024 Overview: Duplicate Abnormal mammogram with microcalcification 05/24/2015 10/02/2017 Coagulation disorder 12/28/2010 020 Overview: MTHFR: POSITIVE FOR ONE COPY OF THE C677T MUTATION normal homocysteine level done at [facility] 12/20/10 Anticoagulation management encounter 12/25/2010 04/29/2011 senior living current use of ant icoagulant therapy 12/25/2010 04/29/2011 Overview: ICD-10 update of inactive term Pulmonary embolus 12/20/2010 07/19/2022 Overview: [facility] only risk factor was recent foot surgery. Temporomandibular joint diso rders, unspecified 06/02/2009 07/19/2022 documented as of this encounter (statuses as of 08/07/2024) Immunizations Name Administration Dates Next Due COVID-19 mRNA, LNP-s, No Pre serve, 2-Dose Series (Moderna) 08/21/2021,12/21/2020,11/23/2020 COVID-19, MRNA-LNP, 23-24, P F, 50 MCG/0.5 mL, 12 YRS AND ABOVE, IM (MODERNA-Spikevax) 07/24/2023 COVID-19, MRNA-LNP, 24-25, P R, 30MCG/0.3ML, IM, 12YRS AND ABOVE (Pfizer-Comirnaty) 07/02/2024 Covid-19, Mrna, Lnp-s, Pf, B ivalent, 30 [...] No 08/28/2023 Does the household have a dzilth-na-[facility]-dith-hle health centerlar source of income? (Household - for [...] Bachelor's degree (e.g., BA, AB, BS) 06/25/2023 Sex and Gender Information Value Date Recorded Sex Assigned at Female 08/22/2023 1:18 PM EDT Gender Identity Female 08/22/2023 1:18 PM EDT Sexual Orientation Choose not to disclose 2022 1:18 PM EDT Job Start Date Occupation Industry Not on file Not on file Not on file documented as of this encounter Miscellaneous Notes * Addendum Note - Clementina Kincaid MD - 07/21/2024 4:34 PM EDTAddended by: CLEMENTINA KINCAID on: 07/21/2024 04:34 PM Modules accepted: Orders * Telephone Encounter - Clementina Kincaid MD - 07/21/2024 4:24 PM EDT This provider spoke w/ the pt via telephone regarding ongoing difficulty she's had obtaining an Rx for adderall xr d/t supply issues. Discussed a trial of vyvanse instead, of which a new Rx for 30mg has been sent to her local pharmacy. * Telephone Encounter - Elke Laboy OSA - 07/21/2024 11:37 AM EDT Pt is callling and wondering what she can do. She said this was to be a new medication for her to try but she is unable to get it. Everywhere is out of stock and she has called around. She would liketo speak to you about this. She said the [facility] and they didn't have it [facility] and have not had for months now. Could you please call her and see if there is something else she can try taking. * Telephone Encounter - Jenny Gonzalez OSA - 07/21/2024 9:21 AM EDT Patient Requesting Refill Prescribing Provider: Valeria Medication: Adderall [facility]: [facility] called asking when last in person appt was. Please send to different pharmacy. [facility] cannot fill this due to it opnly being telemedicine. Will send patient a myG documented in this encounter Plan of Treatment Upcoming Encounters Date Type Department Care Team (Late st Contact Info) Description 08/31/2024 9:00 AM EST Telemedicine Psychiatry Christopher Graham [address] [phone] Clementina Kincaid MD [address] [phone] Scheduled Procedures Name Priority Associated Diagnoses Date/Ti me COLONOSCOPY FLEXIBLE PROXIMA L DIAGNOSTIC Recall Special screening for malignant neoplasms, colon Health Maintenance Due Date Last Done Comments HPV/Co-Test 1993 Cologuard 2008 Fecal Occult Blood Test 2008 Sigmoidoscopy 2008 Depression Monitoring 06/25/2024 06/25/2023 TSH 01/26/2025 01/27/2024, 11/29, 06/08/2020, Additional history exists Cervical Cancer Screening 08/03/2025 Mammogram 08/03/2025 08/03/2024, 01/2023, 07/31/2023, Additional history exists Pap Smear 08/03/2025 08/03/2022, 04/2020, 12/04/2019, Additional history exists Lipid Panel 09/01/2025 09/01/2020, 05/28, 10/13/2019, Additional history exists Colonoscopy 04/12/2027 04/12/2017, 03/28, 05/12/2014, Additional history exists Colorectal Cancer Screening 04/12/2027 DTap/Tdap Vaccines (3 - Td or Tdap) 01/26/2034 01/27/2024, 06/25/2013, 10/28/2005 Zoster Vaccines Completed 09/21/2019, 07/17/2019 Influenza Vaccine (FLU shot) Completed , 07/24/2023, 06/18/2022, Additional history exists COVID-19 Vaccine Completed 07/02/2024, , 07/11/2022, Additional history exists HPV (Gardasil) Vaccine Aged [...] filedocumented as of this encounter Care Teams Swedish Masseuse Relationship Specialty Start Date End Date Ricki Doshi DO [address] [place] [address] PCP - General Family Medicine 10/13/19 documented as of this encounter
--- OUTSIDE RECORDS SUMMARY | 2024-12-04 14:03 | External Medical Summary | Summary of Care ---
Author Name Unknown Organization [facility] Address [address] [facility] [place] [place] [address] Phone [phone] Care Team Providers Care Hospice Fellow Name Role Phone Ricki Doshi Primary Care Provider Reason for Visit * Reason Onset Date Comments Appointment 09/18/2024 EXCHANGE TROUBLE SHOOTER Encounter Details Date Type Department Care Team (Late st Contact Info) Description 09/18/2024 Telephone Family Practice [facility] [address] [place] [address] Mariya Mario CRNP [address] [facility] [place] [address] Appointment (EXCHANGE TROUBLE SHOOTER) Allergies Active Allergy Reactions Criticality Noted Date Comments Adhesive Tape 05/29/2016 Blister from core bx done 04/2016 Hydromorphone 08/07/2022 [place] unwell documented as of this encounter (statuses [...] in the morning. 60 Capsule 4 Active buPROPion HCl ER (XL) 150 MG Oral Tablet Extended Release 24 Hour (Wellbutrin XL)Indications:Low libido Take 1 Tablet by mouth in the morning. 30 Tablet 5 Active documented as of this encounter [...] Overview (10/02/2017): Noted incidentally on MRI at [facility] Summer 2015. Will obtain record. Personal history of malignant neoplasm of breast 06/13/2016 Cancer Staging:Clinical: Unsigned Pathologic:Stage IA(T1c, N0, cM0) - Signed by Misha Rodriguez MD on 07/17/2016 Overview (01/13/2024): S/P the lumpectomy and sentinel lymph cira biopsy, T1c N0 M0, hormonal positive, Her2/Bianca--> negative, S/P adjuvant radiation treatment. 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 Not on file Not on file Not on file documented as of this encounter Miscellaneous Notes * Telephone Encounter - Christianne Doshi OSA - 09/18/2024 8:55 AM EST Pt needs an appt with Rochelle Backoswaldo, nothing open on template please call pt documented in this encounter Plan of Treatment Upcoming Encounters Date Type Department Care Team (Late st Contact Info) Description 10/05/2024 11:30 AM EST Telemedicine Psychiatry Christopher Graham [address] [phone] Clementina Kincaid MD [address] [phone] 11/02/2024 1:40 PM EST Telemedicine Family Practice [facility] [address] [place] [address] Mariya Mario CRNP [address] [place] [address] 03/16/2025 1:00 PM EDT [address] Radiology, [address] [address] Scheduled Procedures Name Priority Associated Diagnoses Date/Ti [...] filedocumented as of this encounter Care Teams Hospice Fellow Relationship Specialty Start Date End Date Ricki Doshi DO [address] [address] PCP - General Family Medicine 10/13/19 documented as of this encounter
--- OUTSIDE RECORDS SUMMARY | 2024-12-04 14:03 | External Medical Summary | Summary of Care ---
Author Name Unknown Organization [facility] Address [address] [facility] [address] [address] [address] Phone [phone] Care Team Providers Care Pattern Clerk Name Role Phone Ricki Doshi DO Primary Care Provider Encounter Details Date Type Department Care Team (Late st Contact Info) Description 08/04/2024 Orders Only Family Practice [facility] [address] [place] [address] Ricki Doshi DO [address] [place] [address] Allergies Active Allergy Reactions Criticality Noted Date Comments Adhesive Tape 05/29/2016 Blister from core bx done 04/2016 Hydromorphone 08/07/2022 [place] unwell documented as of this encounter (statuses as of 08/04/2024) Medications Medication Sig Dispensed Refills Start Date End Date Status Levothyroxine Sodium 25 MCG Oral Tablet (Levoxyl)Indications: Subclinical hypothyroidism Take 1 Tablet by mouth in the morning. (at least 30 min prior to breakfast or other meds). 30 Tablet 11 02/11/2024 Active Lisdexamfetamine Dimesylate 30 MG Oral Capsule (Vyvanse) Take 1 Capsule by mouth in the morning. 30 Capsule 07/21/2024 Active Doxycycline Hyclate 100 MG Oral Capsule Take 1 Capsule by mouth in the morning and 1 Capsule before bedtime. Do all this for 14 days. Until gone.. 28 Capsule 08/01/2024 2024 Active documented as of this encounter (statuses as of 08/04/2024) Active Problems Problem Noted Date Diagnosed Date [...] Menopause 10/02/2017 Overview: At 51 yo Pap 2015 negative. Bartholin's gland cyst 10/02/2017 Overview: Noted incidentally on MRI at [facility] Summer 2015. Will obtain record. Personal history of malignant neoplasm of breast 06/13/2016 Cancer Staging:Clinical: Unsigned Pathologic:Stage IA(T1c, N0, cM0) - Signed by Misha Rodriguez MD on 07/17/2016 Overview: S/P the lumpectomy and sentinel lymph cira biopsy, T1c N0 M0, hormonal positive, Her2/Bianca--> negative, S/P adjuvant radiation treatment. 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 Temporomandibular joint diso rders, unspecified 06/02/2009 07/19/2022 documented as of this encounter (statuses as of 08/04/2024) Immunizations Name Administration Dates Next Due COVID-19 [...] Age 7 and older, IM (Adacel) 01/13/2011(De ferred: Patient Refused) Zoster Vaccine Recombinant (Shingrix) 09/21/2019 [...] No 08/28/2023 Does the household have a [facility] source of income? (Household - [...] 2008 Sigmoidoscopy 2008 Depression Monitoring 06/25/2024 06/25/2023 Mammogram 07/31/2024 08/03/2024, 100 01/2023, 07/31/2023, Additional history exists TSH 01/26/2025 01/27/2024, 11/29, 06/08/2020, Additional history exists Cervical Cancer Screening 08/03/2025 Pap Smear 08/03/2025 08/03/2022, 04/2020, 12/04/2019, Additional [...] Not on filedocumented as of this encounter Procedures Procedure Name Priority Date/Time Associated Diagnosis Comments MAMMOGRAM DIAGNOSTIC BILATERAL Routine 08/03/2024 documented in this encounter Results * MAMMOGRAM DIAGNOSTIC BILATERAL (08/03/2024) Anatomical Region Laterality Modality Breast Bilateral Other 08/03/2024 History Per Patient RAD MAMMOGRAPHY documented in this encounter Care Teams Pattern Clerk Relationship Specialty Start Date End Date Ricki Doshi DO [address] [place] [address] [place] [address] PCP - General Family Medicine 10/13/19 documented as of this encounter
--- OUTSIDE RECORDS SUMMARY | 2024-12-04 14:03 | External Medical Summary | Summary of Care ---
Author Name Unknown Organization [facility] Address [address] [facility] [place] [address] Phone [phone] Care Team Providers Care Infrastructure Developer Name Role Phone Kojo Doshir [place] Primary Care Provider Encounter Details Date Type Department Care Team (Late st Contact Info) Description 08/31/2024 9:00 AM EST Telemedicine Psychiatry Christopher Graham [address] [place] [phone] Clementina Kincaid MD [address] [place] [phone] ADHD (attention deficit hyperactivity disorder), combined type*; Generalized anxiety disorder; MDD (major depressive disorder), recurrent, in full remission (HCC) Allergies Active Allergy Reactions Criticality Noted Date Comments Adhesive Tape 05/29/2016 Blister from core bx done 04/2016 Hydromorphone 08/07/2022 [place] unwell documented as of this encounter (statuses as of 08/31/2024) Medications Medication Sig Dispensed Refills Start Date End Date Status Levothyroxine Sodium 25 MCG Oral Tablet (Levoxyl)Indications: Subclinical hypothyroidism Take 1 Tablet by mouth in the morning. (at least 30 min prior to breakfast or other meds). 30 Tablet 11 02/11/2024 Active Lisdexamfetamine Dimesylate 30 MG Oral Capsule (Vyvanse) Take 1 Capsule by mouth in the morning. 30 Capsule 08/07/2024 Active Amphetamine-Dextroamp het ER 10 MG Oral Capsule Extended Release 24 Hour (Adderall XR) Take 1 Capsule by mouth in the morning. 30 Capsule 08/31/2024 Active documented as of this encounter (statuses as of 08/31/2024) Active Problems Problem Noted Date Diagnosed Date [...] 10/02/2017 Overview: Noted incidentally on MRI at [facility] Summer 2015. Will obtain record. Personal history of malignant neoplasm of breast 06/13/2016 Cancer Staging:Clinical: Unsigned Pathologic:Stage IA(T1c, N0, cM0) - Signed by Misha Rodriguez MD on 07/17/2016 Overview: S/P the lumpectomy and sentinel lymph cira biopsy, T1c N0 M0, hormonal positive, Her2/Bianca--> negative, S/P adjuvant radiation treatment. 05/16/20[facility] Malaise and fatigue 06/02/2009 Arthralgia of temporomandibular joint 06/02/2009 documented as of this encounter (statuses as of 08/31/2024) Resolved Problems Problem Noted Date Diagnosed Date Resolved Date Malignant neoplasm of upper- outer quadrant of right breast in female, estrogen receptor positive 01/11/2022 01/13/2024 Overview: Duplicate Abnormal mammogram with microcalcification 05/24/2015 10/02/2017 Coagulation disorder 12/28/2010 020 Overview: MTHFR: POSITIVE FOR ONE COPY OF THE C677T MUTATION normal homocysteine level done at [facility] 12/20/10 Anticoagulation management encounter 12/25/2010 04/29/2011 half-way current use of ant icoagulant therapy 12/25/2010 04/29/2011 Overview: ICD-10 update of inactive term Pulmonary embolus 12/20/2010 07/19/2022 Overview: [facility] only risk factor was recent foot surgery. Temporomandibular joint diso rders, unspecified 06/02/2009 07/19/2022 documented as of this encounter (statuses as of 08/31/2024) Immunizations Name Administration Dates Next Due COVID-19 [...] y our heating, water, or electric bill? (Adult - for ages 18 years and over) Not on file 08/30/2024 Is your family able to pay t he heat, water, or electric bill? (Household - for ages 0-17 years) Not on file 08/30/2024 Does your family have access to good internet? (Household - for ages 0-17 years) Not on file 08/30/2024 Employment Status Answer Date Recorded Are you unemployed or without regular income? No 08/28/2023 Does the household have a re gular source of income? (Household - for ages 0-17 years) Not on file 08/28/2023 Social Connections Answer Date Recorded How often do you feel lonely or isolated from those around you? (Adult - for ages 18 years and over) Not on file 08/30/2024 Financial Resource Strain Answer Date R ecorded [...] Progress Notes * Clementina Kincaid MD - 08/31/2024 9:09 AM EST Images from the original note were not included. Patient location: HOME. I was not in a hospital or clinic location. After connecting through televideo, patient was verified with two unique identifiers. Patient (or authorized legal circulation representative) was then informed that this was a Telemedicine visit and being conducted confidentially over secure lines. Methods to assure confidentiality were taken. Patient acknowledged consent and understanding of privacy and security of the Telemedicine visit. The patient agreed to participate. TELEPSYCHIATRY RETURN VISIT NOTE [facility], [address] [address] 09/24/2023 Destini Bui Braulio [id number] PATIENT CONTACT INFORMATION: [address] [facility] [address] There is no home phone number on file. Extended Emergency Contact Information Primary Emergency Contact: PEPE FOY Mobile Relation: Other - (no specific identity) Secondary Emergency Contact: HANNAH MCCULLOUGH Relation: Parent CC: Routine Clinic Follow Up INTERVAL HISTORY: Pt presents on time for today's appt. Since her last clinic visit, she reports that she's been doing "ok". She was able to initiate adderall xr 10mg, which she reports was well tolerated overall, denying side effects inc worsened anxiety or sleep. She identifies it as being beneficial in that it's allowed for an improvement in her focus/concentration as well. She also denies any chest pain, headaches, or other physical changes. She has remained w/ sustained mood stability overall, denying concern today for emerging depressive sx including feelings of helplessness, hopelessness, SI or HI. 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 She denies any substance use inc EtOH or cannabis. PDMP Review: I have reviewed the patients controlled substance dispensing history in the Prescription Drug Monitoring Program in compliance with the [facility] regulations before prescribing a controlled substance. Other Dispensed Days Supply Quantity Provider Pharmacy ADDERALL XR (Capsule, Extended Release) 07/24/2024 30 30 Unit(s) Not Specified [facility] #... METHYLPHENIDATE HCL (Tablet, Extended Release) 06/19/2024 30 30 Unit(s) Not Specified [facility]... METHYLPHENIDATE HCL (Tablet, Extended Release) 06/04/2024 30 30 Unit(s) Not Specified [facility]... METHYLPHENIDATE HCL (Tablet, Extended Release) 06/04/2024 30 30 Unit(s) Not Specified [facility]... REVIEW OF SYSTEMS: Review of systems including cardiac, pulmonary, constitutional, dermatologic, rheumatologic, GI, , MSK, psychiatric, and neurologic systems was negative except as in HPI HOME MEDICATIONS: Current Outpatient Medications Medication Sig Dispense Refill Amphetamine-Dextroamphet ER 10 MG Oral Capsule Extended Release 24 Hour (Adderall XR) Take 1 Capsule by mouth in the morning. 30 Capsule 0 Levothyroxine Sodium 25 MCG Oral Tablet (Levoxyl) Take 1 Tablet by mouth in the morning. (at least 30 min prior to breakfast or other meds). 30 Tablet 11 Lisdexamfetamine Dimesylate 30 MG Oral Capsule (Vyvanse) Take 1 Capsule by mouth in the morning. 30Capsule 0 No current facility-administered medications for this visit. ALLERGIES: Review of patient's allergies indicates: Allergen Reactions Adhesive Tape Blister from core bx done 04/2016 Hydromorphone [place] unwell VITAL SIGNS: LMP (LMP Unknown) MENTAL [...] questionnaires available. Labs/Outcomes No data to display [place] Suicide Severity Rating Scale Results 08/31/2024 09:59 [place] SUICIDE SEVERITY RATING SCALE (C-SSRS) Have [...] assessment IMPRESSION: Ms. Braulio (Laura) is a 58 yo F w/ a pmh including breast cancer in remission and TMJ, as well as apast psychiatric hx of self-reported "depression and anxiety" who presents to the [facility] for initial [...] also continued to engage in therapy through [facility] where focus has remained on targeting her [...] bx, and has been encouraged to consider [facility] as well. Her CBC returned reassuring, [...] w/ the tx plan as detailed below. DIAGNOSES: Major Depressive Disorder (PHQ9 from 06/25/23: 16) Generalized anxiety disorder (GAD7 from 08/22/23: 20, 08/28/23: 15) Hoarding disorder EtOH use disorder in remission Attention deficit and hyperactivity disorder R/O cannabis induced mood or anxiety disorder R/O caffeine dependence UPDATED TREATMENT PLAN: MEDICATIONS: 1. Discontinue sertraline 2. Continue adderall xr 10mg daily Future med [...] 1. Discussed concerns pertaining to the pt's current medical cannabis use, in that it may potentially be contributing to a variety of her current symptoms, and include the risk for psychosis/paranoia, amotivation, fatigue, impaired executive functioning (including declines in memory, attention, response time and concentration), anxiety, and mood dysfunction/dysphoria. Additionally, the risk acuteintoxication poses has been addressed, which can include acute anxiety, dysphoria, paranoia, psychomotor impairment, and cognitive delay placing them at further risk of injury/accidents. For female patients of reproductive age, also discussed the risk cannabis use poses during both and with including growth restriction and premature . Will also continue to discuss limitations of any ongoing psychotropic management, including dose modification and treatment resp onsiveness, which is significantly limited in the context of ongoing substance use. 2. Will also encourage pt to limit her caffeine consumption given it's risk for further contributing to anxiety, sleep disturbances, and agitation 3. Will plan to place an urgent Neuropsych clinic referral today for further assessment of pt's cognition given the complexity of her current presentation and active cognitive sx Contraception: pt is post-menopausal Side effects of [...] on the information above. . Return in 4 weeks STRATEGIES: Supportive listening Problem solving I spent a total of 20-29 minutes (exact time 21 mins) on the date of service in [...] treatment team members or external physicians via [employer] messaging or telephonic communications. documented in this [...] depressive disorder, recurrent episode, in full remission documented in this encounter Care Teams Infrastructure Developer Relationship Specialty Start Date End Date Ricki Doshi DO [address] [place] [address] PCP - General Family Medicine 10/13/19 documented as of this encounter
--- OUTSIDE RECORDS SUMMARY | 2024-12-04 14:03 | External Medical Summary | Summary of Care ---
Author Name Unknown Organization [facility] Address [address] [facility] [place] [address] Phone [phone] Care Team Providers Care Hand Drawer In Name Role Phone Ricki Doshi DO Primary Care Provider Encounter Details Date Type Department Care Team (Late st Contact Info) Description 08/11/2024 Telephone Family Practice [facility] [address] [place] [address] Ricki Doshi DO [address] [place] [address] Allergies Active Allergy Reactions Criticality Noted Date Comments Adhesive Tape 05/29/2016 Blister from core bx done 04/2016 Hydromorphone 08/07/2022 [place] unwell documented as of this encounter (statuses as of 08/11/2024) Medications Medication Sig Dispensed Refills Start Date End Date Status Levothyroxine Sodium 25 MCG Oral Tablet (Levoxyl)Indications: Subclinical hypothyroidism Take 1 Tablet by mouth in the morning. (at least 30 min prior to breakfast or other meds). 30 Tablet 11 02/11/2024 Active Doxycycline Hyclate 100 MG Oral Capsule Take 1 Capsule by mouth in the morning and 1 Capsule before bedtime. Do all this for 14 days. Until gone.. 28 Capsule 08/01/2024 2024 Active Lisdexamfetamine Dimesylate 30 MG Oral Capsule (Vyvanse) Take 1 Capsule by mouth in the morning. 30 Capsule 08/07/2024 Active documented as of this encounter (statuses as of 08/11/2024) Active Problems Problem Noted Date Diagnosed Date [...] Overview: Noted incidentally on MRI at [facility] Summer 2015. Will obtain record. Personal history of malignant neoplasm of breast 06/13/2016 Cancer Staging:Clinical: Unsigned Pathologic:Stage IA(T1c, N0, cM0) - Signed by Misha Rodriguez MD on 07/17/2016 Overview: S/P the lumpectomy and sentinel lymph cira biopsy, T1c N0 M0, hormonal positive, Her2/Bianca--> negative, S/P adjuvant radiation treatment. 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 Temporomandibular joint diso rders, unspecified 06/02/2009 07/19/2022 documented as of this encounter (statuses as of 08/11/2024) Immunizations Name Administration Dates Next Due COVID-19 [...] No 08/28/2023 Does the household have a [facility] source of income? (Household - for ages [...] encounter Miscellaneous Notes * Telephone Encounter - Crystal Huynh LPN - 08/11/2024 8:25 AM EDT Mammo order needed. Placed and faxed to [facility]. documented in this encounter Plan of Treatment Upcoming Encounters Date Type Department Care Team (Late st Contact Info) Description 08/31/2024 9:00 AM EST Telemedicine Psychiatry Christopher Graham [address] [place] [address] [phone] Clementina Kincaid MD [address] [phone] Scheduled Orders Name Type Priority Associated Diagnoses Orde r Schedule MAMMOGRAM SCREENING MONY BILATERAL Medical Imaging Routine Encounter for screening mammogram for breast cancer Expected: 08/11/2024, Expires: 09/11/2025 Scheduled Procedures Name Priority Associated Diagnoses Date/Ti [...] as of this encounter Visit Diagnoses Diagnosis Encounter for screening mammogram for breast cancer- Primary documented in this encounter Care Teams Hand Drawer In Relationship Specialty Start Date End Date Ricki Doshi DO [address] [place] [address] PCP - General Family Medicine 10/13/19 documented as of this encounter
[2024-12-04] MEDS: PIPERACILLIN/TAZOBACTAM 4.5 GM/100 ML BAG IV ONE (14:05)
--- NOTE | 2024-12-04 14:35 | Surgery Progress Note ---
Date of Service December 04, 2024 Assessment & Plan (1) Diverticulitis of intestine with abscess: Plan: Patient with c/o abdominal pain and fever that has been on going for the last 3 days. Patient reports she was brought in by ambulance because she was at her PCP and almost passed out. She underwent an abdominal CT scan that is showing concerns for : Extensive inflammation centered on the hepatic flexure of the colon consistent with severe acute diverticulitis. No extraluminal gas. Elongated rim-enhancing fluid collection likely within the wall of the colon which measures approximately 7 x 1.4 cm. This favors an intramural abscess. No drainable fluid collection. On exam patient appears anxious in no acute distress, reprots a migrain and abdominal pain, was given toradol and does not report relief. She is febrile with a temp of 101.3 F, HR 94, and BP 96/67. Abdomen is non distended, soft and TTP. Pt reporting pain is mostly in upper abdomen. Pt is being admitted to medicine. Recommendations: Keep NPO IV Fluids for hydration IV antiemetic PRN IV antibiotics was started on IV zosyn in the ER IV analgesic PRN ordered morphine and IV Tylenol Continue conservative treatment at this time. Will follow along. Subjective Patient is a pleasant 59 yo female with PMH breast CA s/p lumpectomy radiation , hypothyroidism, HLD, Migraines, diverticulitis, s/p bowel resection 7 years ago that presented to the [facility] ER with c/o abdominal pain and fever that has been on going for the last 3 days. Patient reports she was brought in by ambulance because she was at her PCP and almost passed out. She has a history of diverticulitis and had an elective colon resection seven years ago. [facility] and last colonoscopy was 5-6 years ago and reports she is due. She denies nausea /vomiting, SOB, CP, last bm was normal for her yesterday. Review of Systems Constitutional: + fever and + chills Respiratory: no dyspnea Cardiovascular: no chest pain Gastrointestinal: + abdominal pain; no nausea, no vomiting and no change in bowel habits Musculoskeletal: no muscle weakness Psychiatric: + anxiety; no confusion Physical Exam Constitutional: cooperative; + uncomfortable Respiratory: normal respiratory effort and able to speak in complete sentence s; no respiratory distress Cardiovascular: Rate/Rhythm: + tachycardic (94) Gastrointestinal (Abdomen): Inspection/Auscultation: + abdominal surgical scar; abdomen not distended Percussion/Palpation: + abdomen tender Musculoskeletal: no cyanosis or clubbing, extremities motor strength 5/5 Psychiatric: Orientation: alert and oriented x 3 Results & Data Vital Signs (Past 12 Hours) Vital Signs Temp Pulse Pulse Resp BP BP Pulse Ox 12/04/24 14:19 94 H 18 96/67 L 97 12/04/24 12:20 101.3 F H 100 H 18 108/76 100 12/04/24 10:20 97.9 F 102 H 18 103/70 100 O2 Del Method 12/04/24 14:19 Room Air 12/04/24 12:20 Room Air 12/04/24 10:20 Diagnostic Findings [place], [place] [phone] CT Scan Report Patient: DOUG RODRIGUEZ Admit Date: 12/04/24 MR#: [id number] Address1: [address] [place] [address] Acct ID:[id number] Address2: [place] [address] Date: 1965 [facility] Zip: [place] [address] Age: 59 Location: ED Sex: F Room/Bed: Att Phy: Diagnosis: AB PAIN, FEVER Leslie Phy: Ricki Doshi DO Service Date: 12/04/24 [facility] Phy: Interpreting Phy: Diego De La Garza MDAdmit Phy: Ordering Phy: Zayda Doshi PA-C cc: ~ CT OF THE ABDOMEN AND PELVIS WITH CONTRAST CLINICAL HISTORY: Abdominal pain. COMPARISON STUDY: CT of the abdomen and pelvis July 15, 2022. TECHNIQUE: Following IV administration of 94 mL of Optiray, axial images of the abdomen and pelvis were obtained from the lung bases to the proximal femurs. Images were reviewed in the axial, sagittal, and coronal planes. IV contrast was administered without complication. Automated exposure control was utilized for the study. A dose lowering technique was utilized adhering to the principles of ALARA. CT DOSE: 713.68 mGy.cm FINDINGS: Lung bases are unremarkable. There is a moderate sized hiatal hernia. Liver, spleen, adrenal glands, kidneys and pancreas are normal. There is no biliary or pancreatic ductal dilatation. There is no hydronephrosis. There is no evidence for a bowel obstruction. The appendix is normal. There is a small amount of fluid within the pelvis. Extensive right upper quadrant inflammation is centered on the hepatic flexure of the colon. Colonic diverticulosis is present. Marked wall thickening of the hepatic flexure of the colon is noted with extensive adjacent inflammation. There is no free air. There is an elongated rim-enhancing fluid collection likely within the wall of the colon which measures approximately 7 x 1.4 cm. No drainable fluid collection is identified. No additional sites of inflammation are identified. Status post sigmoid resection. IMPRESSION: Extensive inflammation centered on the hepatic flexure of the colon consistent with severe acute diverticulitis. No extraluminal gas. Elongated rim- enhancing fluid collection likely within the wall of the colon which measures approximately 7 x 1.4 cm. This favors an intramural abscess. No drainable fluid collection. Follow-up colonoscopy once symptoms resolve is recommended to exclude the less likely possibility of an underlying colonic lesion. ACT 112: Negative or not required by law. Electronically signed by: Diego De La Garza M.D. 12/04/2024 12:40 PM Dictated: 12/04/24 1226 Transcribed: 12/04/24 1226 Results CBC w Diff Results: RBC 4.30 M/uL (4.20-5.40) 12/04/24 WBC 11.95 K/ul (4.8-10.8) H 12/04/24 Hgb 13.2 g/dl (12.0-16.0) 12/04/24 Hct 39.5 % (37.0-47.0) 12/04/24 MCV 91.9 fL (80.0-100.0) 12/04/24 MCH 30.7 pg (25.0-34.0) 12/04/24 MCHC 33.4 g/dL (32.0-36.0) 12/04/24 RDW Standard Deviation 43.6 fL (36.4-46.3) 12/04/24 RDW Coefficient of Variation 13.0 % (11.5-14.5) 12/04/24 Plt Count 266 K/uL (130-400) 12/04/24 MPV 10.9 fL (9.4-12.4) 12/04/24 Neutrophils (%) (Auto) 82.9 % 12/04/24 Lymphocytes (%) (Auto) 6.6 % 12/04/24 Monocytes # (Auto) 1.12 K/uL (0.11-0.59) H 12/04/24 Eosinophils # (Auto) 0.03 K/uL (0.00-0.50) 12/04/24 Immature Granulocyte % (Auto) 0.4 % 12/04/24 Neutrophils # (Auto) 9.91 K/uL (1.40-6.50) H 12/04/24 Lymphocytes # (Auto) 0.79 K/uL (1.20-3.40) L 12/04/24 Monocytes # (Auto) 1.12 K/uL (0.11-0.59) H 12/04/24 Eosinophils # (Auto) 0.03 K/uL (0.00-0.50) 12/04/24 Basophils # (Auto) 0.05 K/uL (0.00-0.20) 12/04/24 Immature Granulocyte # (Auto) 0.05 K/uL (0.01-0.20) 5 PG Care Time/CCT Total # of Minutes Spent Total Time Spent with Patient: Total time spent is greater than 50% in coordination of care (as documented) at patient's floor/unit and/or counseling patient: Coding Level of Care Code 04402 SUB INP/OBS CARE Diagnoses Diverticulitis of intestine with abscess K57.80
[2024-12-04] MEDS: Patient's HEIGHT &/or WEIGHT Needed STA (14:37)
--- NOTE | 2024-12-04 14:40 | Surgery Consultation ---
Date of Consultation December 04, 2024 Assessment & Plan (1) Diverticulitis of intestine with abscess: Patient with c/o abdominal pain and fever that has been on going for the last 3 days. Patient reports she was brought in by ambulance because she was at her PCP and almost passed out. She underwent an abdominal CT scan that is showing concerns for : Extensive inflammation centered on the hepatic flexure of the colon consistent with severe acute diverticulitis. No extraluminal gas. Elongated rim-enhancing fluid collection likely within the wall of the colon which measures approximately 7 x 1.4 cm. This favors an intramural abscess. No drainable fluid collection. On exam patient appears anxious in no acute distress, reprots a migrain and abdominal pain, was given toradol and does not report relief. She is febrile with a temp of 101.3 F, HR 94, and BP 96/67. Abdomen is non distended, soft and TTP. Pt reporting pain is mostly in upper abdomen. Pt is being admitted to medicine. Recommendations: Keep NPO IV Fluids for hydration IV antiemetic PRN IV antibiotics was started on IV zosyn in the ER IV analgesic PRN ordered morphine and IV Tylenol Continue conservative treatment at this time. Will follow along Supervising Physician Co-Signing Physician Notes Patient seen and examined, labs and imaging reviewed, agree with above. Presented to the emergency department abdominal pain. Started 2 days ago, history of laparoscopic assisted sigmoidectomy by Dr. Eduardo in 2017. She has done well since then. Last colonoscopy about 4 to 5 years ago, she thinks she is due for 1. On exam she is currently febrile to 38 5, vital signs stable. Abdomen is soft, moderately and diffusely tender to palpation, slightly worse in the right upper quadrant, no guarding or rebound. Mild leukocytosis. CT scan personally viewed and interpreted agree with the assessment of diverticulitis of the hepatic flexure with what appears to be an intramural abscess not amenable to drainage. No perforation. Will plan for admission to medicine, nonoperative management with IV antibiotics and bowel rest. She will need an outpatient colonoscopy in 6 to 8 weeks once the inflammation resolves. Surgery will follow, call with questions or concerns History of Present Illness History of Present Illness Patient is a pleasant 59 yo female with PMH breast CA s/p lumpectomy radiation , hypothyroidism, HLD, Migraines, diverticulitis, s/p bowel resection 7 years ago that presented to the [facility] ER with c/o abdominal pain and fever that has been on going for the last 3 days. Patient reports she was brought in by ambulance because she was at her PCP and almost passed out. She has a history of diverticulitis and had an elective colon resection seven years ago. She follows with [facility] and last colonoscopy was 5-6 years ago and reports she is due. She denies nausea /vomiting, SOB, CP, last bm was normal for her yesterday. Allergies Allergy/AdvReac Type Severity Reaction Status Date / Time adhesive Allergy Mild Tape Verified 12/04/24 14:15 blisters Home Medications Medication Instructions Recorded Confirmed Type turmeric 400 mg capsule 400 mg PO DAILY ##0 03/03/17 12/04/24 History cholecalciferol (vitamin D3) 25 25 mcg PO DAILY 30 days #0 tabs 04/16/17 12/04/24 History mcg (1,000 unit) tablet (Vitamin D3) qpodjkg-tzoqhdyedrkfl-szyhcnon 250 1 tab PO Q6H PRN Migraine Headache 02/14/21 12/04/24 History mg-250 mg-65 mg tablet (Excedrin Extra Strength) glucosamine 116 mg-chondroitin 100 1 cap PO DAILY 03/09/21 12/04/24 History mg-dietary supplement #25 capsule atorvastatin 20 mg tablet 20 mg PO QAM 12/04/24 12/04/24 History bupropion HCl 300 mg 24 hr tablet, 300 mg PO QAM 12/04/24 12/04/24 History extended release dextroamphetamine-amphetamine ER 5 10 mg PO QAM 12/04/24 12/04/24 History mg 24hr capsule,extend release levothyroxine 25 mcg tablet 25 mcg PO DAILYBB 12/04/24 12/04/24 History Patient History Medical History Hx of diverticulitis of colon Body aches Surgical History Hx of foot surgery Hx of adenoidectomy History of esophagogastroduodenoscopy (EGD) History of colonoscopy H/O lumpectomy History of colon resection Social History Smoking Status: Former smoker Hx Alcohol Use: Yes (Recovery) Hx Substance Use: Yes Preferred Language: Belarusian Communication Ability: Effective Certified Novell Administrator Required: No Beliefs That Will Affect Care: None Current Living Situation: Alone 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 Feels Safe at Home: Yes Review of Systems Constitutional: + fever and + chills Respiratory: no dyspnea Cardiovascular: no chest pain Gastrointestinal: + abdominal pain; no nausea and no vomit ing Musculoskeletal: no muscle weakness Psychiatric: + anxiety; no confusion Physical Exam Constitutional: cooperative; no acute distress and + uncomfortable Respiratory: normal respiratory effort and able to speak in complete sentences; no respiratory distress Cardiovascular: Rate/Rhythm: + tachycardic (94) Gastrointestinal (Abdomen): Inspection/Auscultation: + abdominal surgical scar; abdomen not distended Percussion/Palpation: + abdomen tender and abdomen soft Psychiatric: Orientation: alert and oriented x 3 Results & Data Vital Signs (Past 12 Hours) Vital Signs Temp Pulse Pulse Resp BP BP Pulse Ox 12/04/24 14:19 94 H 18 96/67 L 97 12/04/24 12:20 101.3 F H 100 H 18 108/76 100 12/04/24 10:20 97.9 F 102 H 18 103/70 100 O2 Del Method 12/04/24 14:19 Room Air 12/04/24 12:20 Room Air 12/04/24 10:20 Diagnostic Findings [place], [place] [phone] CT Scan Report Patient: DOUG RODRIGUEZ Admit Date: 12/04/24 MR#: [id number] Address1: [address] [place] [address] Acct ID:[id number] Address2: [place] [address] Date: 1965 [facility] Zip: [place] [address] Age: 59 Location: ED Sex: F Room/Bed: Att Phy: Diagnosis: AB PAIN, FEVER Leslie Phy: Ricki Doshi DO Service Date: 12/04/24 Fam Phy: Interpreting Phy: Diego De La Garza MDAdmit Phy: Ordering Phy: Zayda Doshi PA-C cc: ~ CT OF THE ABDOMEN AND PELVIS WITH CONTRAST CLINICAL HISTORY: Abdominal pain. COMPARISON STUDY: CT of the abdomen and pelvis July 15, 2022. TECHNIQUE: Following IV administration of 94 mL of Optiray, axial images of the abdomen and pelvis were obtained from the lung bases to the proximal femurs. Images were reviewed in the axial, sagittal, and coronal planes. IV contrast was administered without complication. Automated exposure control was utilized for the study. A dose lowering technique was utilized adhering to the principles of ALARA. CT DOSE: 713.68 mGy.cm FINDINGS: Lung bases are unremarkable. There is a moderate sized hiatal hernia. Liver, spleen, adrenal glands, kidneys and pancreas are normal. There is no biliary or pancreatic ductal dilatation. There is no hydronephrosis. There is no evidence for a bowel obstruction. The appendix is normal. There is a small amoun t of fluid within the pelvis. Extensive right upper quadrant inflammation is centered on the hepatic flexure of the colon. Colonic diverticulosis is present. Marked wall thickening of the hepatic flexure of the colon is noted with extensive adjacent inflammation. There is no free air. There is an elongated rim-enhancing fluid collection likely within the wall of the colon which measures approximately 7 x 1.4 cm. No drainable fluid collection is identified. No additional sites of inflammation are identified. Status post sigmoid resection. IMPRESSION: Extensive inflammation centered on the hepatic flexure of the colon consistent with severe acute diverticulitis. No extraluminal gas. Elongated rim- enhancing fluid collection likely within the wall of the colon which measures approximately 7 x 1.4 cm. This favors an intramural abscess. No drainable fluid collection. Follow-up colonoscopy once symptoms resolve is recommended to exclude the less likely possibility of an underlying colonic lesion. ACT 112: Negative or not required by law. Electronically signed by: Diego De La Garza M.D. 12/04/2024 12:40 PM Dictated: 12/04/24 1226 Transcribed: 12/04/24 1226 PG Care Time/CCT Total # of Minutes Spent Total Time Spent with Patient: Total time spent is greater than 50% in coordination of care (as documented) at patient's floor/unit and/or counseling patient: Coding Level of Care Code 79004 IN/OBS CONSULT LVL 3,45M Diagnoses Diverticulitis of intestine with abscess K57.80
--- NOTE | 2024-12-04 14:57 | History & Physical Report ---
Date of Service December 04, 2024 Assessment & Plan (1) Diverticulitis of intestine with abscess: (2) Mood disorder: (3) History of colon resection: Plan This is a 59-year-old female with PMH of diverticulitis history status post partial bowel resection [address] Eduardo, mood disorder, dyslipidemia, breast CA (s/p lumpectomy and radiation), migraines and other medical problems listed below who presents from PCP's office today with abdominal pain x 3 days and was found to have diverticulitis with abscess. Sepsis 2/2 diverticulitis with abscess T: 38.5 C, tachycardic at 102 bpm with BP 96/67 in ED with WBC 11.95k, lactate WNL, slight elevation of AST/ALT CT abd/pelvis with extensive inflammation centered on the hepatic flexure of the colon consistent with severe acute diverticulitis. No extraluminal gas. Elongated rim-enhancing fluid collection likely within the wall of the colon which measures approximately 7 x 1.4 cm. This favors an intramural abscess. No drainable fluid collection. Follow-up colonoscopy once symptoms resolve is recommended Gen surg evaluated in ED - feel patient is appropriate to admit for conservation mgmt with IV abx and fluids, keep NPO Continue empiric Zosyn, IV fluids, antiemetics, pain control Follow blood culture Mood disorder Resume Wellbutrin as diet advanced ADHD Hold Adderall for now Hypothyroidism Resume levothyroxine as able HLD Resume statin as able DVT Ppx: SCDs for now Code status: FULL PCP: JONA Mario Dispo: admitted to med/tele Patient seen in collaboration with Dr. Roque. Please see addendum. I spent a total of 75 minutes coordinating, documenting, and providing care for this patient excluding time spent in the performance of separately billed services or time spent by another provider/QHP. History of Present Illness Chief Complaint: abd pain Primary Care Provider: Ricki Doshi, This is a 59-year-old female with PMH of diverticulitis history status post partial bowel resection [address] Eduardo, mood disorder, dyslipidemia, breast CA (s/p lumpectomy and radiation), migraines and other medical problems listed below who presents from PCP's office today with abdomin al pain x 3 days. States pain developed and was diffuse and constant, worse with movement. Intermittent associated nausea but no vomiting. Developed headache and fever with Tmax of 100 F overnight. No changes to bowel movements. Was seen in clinic earlier today for this and sent to ED for further evaluation for possible diverticulitis. States she almost passed out there and feels very dehydrated. Pain is currently a 7/10. In ED, has received Toradol and dose of Zosyn. Noted to be febrile at 38.5 C, tachycardic at 102 bpm with BP 96/67. Allergies Allergy/AdvReac Type Severity Reaction Status Date / Time adhesive Allergy Mild Tape Verified 12/04/24 14:15 blisters Home Medications Medication Instructions Recorded Confirmed Type turmeric 400 mg capsule 400 mg PO DAILY ##0 03/03/17 12/04/24 History cholecalciferol (vitamin D3) 25 25 mcg PO DAILY 30 days #0 tabs 04/16/17 12/04/24 History mcg (1,000 unit) tablet (Vitamin D3) cfkcqac-lcnbsykrbxrhx-ibpggmoe 250 1 tab PO Q6H PRN Migraine Headache 02/14/21 12/04/24 History mg-250 mg-65 mg tablet (Excedrin Extra Strength) glucosamine 116 mg-chondroitin 100 1 cap PO DAILY 03/09/21 12/04/24 History mg-dietary supplement #25 capsule atorvastatin 20 mg tablet 20 mg PO QAM 12/04/24 12/04/24 History bupropion HCl 300 mg 24 hr tablet, 300 mg PO QAM 12/04/24 12/04/24 History extended release dextroamphetamine-amphetamine ER 5 10 mg PO QAM 12/04/24 12/04/24 History mg 24hr capsule,extend release levothyroxine 25 mcg tablet 25 mcg PO DAILYBB 12/04/24 12/04/24 History Past Med/Surg History Problem List Diverticulitis of intestine with abscess History of pulmonary embolus (PE) 2010 Lumbar radicular pain Lumbar facet joint pain Migraine (Chronic) Radial nerve palsy Medical History Mood disorder MTHFR mutation Breast cancer (05/15/16) "Abnormal right breast mammogram Status post ultrasound-guided needle biopsy 05/15/2016 revealing 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, progesterone receptor positive, HER-2/andre negative Status post needle localization lumpectomy and sentinel lymph node biopsy Stage pT1c pN0M0 Status post completion of radiation therapy 09/07/2016 received 5130 cGy utilizing hypo-fractionation." On 07/24/16 14:05 Lindsay Goodrich wrote "Abnormal right breast mammogram Status post ultrasound-guided needle biopsy 05/15/2016 revealing 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, progesterone receptor positive, HER-2/andre negative Status post needle localization lumpectomy and sentinel lymph node biopsy Stage pT1c pN0M0" Hx of diverticulitis of colon Body aches Surgical History Hx of foot surgery Hx of adenoidectomy History of esophagogastroduodenoscopy (EGD) History of colonoscopy H/O lumpectomy History of colon resection Social History Smoking Status: Former smoker Hx Alcohol Use: Yes (Recovery) Hx Substance Use: Yes Preferred Language: Taiwanese Communication Ability: Effective Waste Management Specialist Required: No Beliefs That Will Affect Care: None Current Living Situation: Alone 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 Physical Exam Physical Exam: General Appearance: WD/WN, vitals as above, NAD, sitting up in bed, anxious, intermittently tearful during interview Head: normocephalic, atraumatic Eyes: normal inspection, PERRL, conjunctivae normal, anicteric sclerae ENT: external ear and nose normal, oropharynx dry mucous membranes Neck: normal visual inspection, trachea midline, no thyromegaly Respiratory: normal respiratory effort, lungs clear to auscultation, no wheeze, rales, rhonchi. No accessory muscle use Cardiovascular: tachycardic rate, regular rhythm, normal peripheral pulses, no BLE edema. Vessels: no JVD Chest: normal inspection of chest Abdomen/GI: normal bowel sounds, diffuse TTP, soft, no hepatosplenomegaly Extremities/Musculoskeletal: no cyanosis or clubbing, extremities motor strength 5/5 Neurologic: PERRL, EOMI, accommodation nl, no face palsy, no dysarthria, CN's II-XI intact bilaterally and moves all extremities Psychiatric: A+Ox3, anxious Skin: no rashes, normal color, warm/dry Results & Data Results & Data Vital Signs (Past 12 Hours) Vital Signs Temp Pulse Pulse Resp BP BP Pulse Ox 12/04/24 14:30 94 H 18 105/67 95 12/04/24 14:19 94 H 18 96/67 L 97 12/04/24 12:20 38.5 C H 100 H 18 108/76 100 12/04/24 10:20 36.6 C 102 H 18 103/70 100 O2 Del Method 12/04/24 14:30 Room Air 12/04/24 14:19 Room Air 12/04/24 12:20 Room Air 12/04/24 10:20 Laboratory Results Short CBC 12/04/24 Range/Units 11:20 WBC 11.95 H (4.8-10.8) K/ul Hgb 13.2 (12.0-16.0) g/dl Hct 39.5 (37.0-47.0) % Plt Count 266 (130-400) K/uL BMP 12/04/24 11:20 Sodium 135 L Potassium 4.3 Chloride 102 Carbon Dioxide 26 BUN 12 Creatinine 0.76 Glucose 99 Calcium 9.9 Liver Function 12/04/24 Range/Units 11:20 Total Bilirubin 0.6 (0.2-1.0) mg/dl AST 56 H (13-39) U/L ALT 70 H (7-52) U/L Alkaline Phosphatase 70 (34-104) U/L Albumin 4.3 (3.4-5.0) gm/dl Diagnostic Findings Abdomen/Pelvis CT 12/04/24 11:51 CT OF THE ABDOMEN AND PELVIS WITH CONTRAST CLINICAL HISTORY: Abdominal pain. COMPARISON STUDY: CT of the abdomen and pelvis July 15, 2022. TECHNIQUE: Following IV administration of 94 mL of Optiray, axial images of the abdomen and pelvis were obtained from the lung bases to the proximal femurs. Images were reviewed in the axial, sagittal, and coronal planes. IV contrast was administered without complication. Automated exposure control was utilized for the study. A dose lowering technique was utilized adhering to the principles of ALARA. CT DOSE: 713.68 mGy.cm FINDINGS: Lung bases are unremarkable. There is a moderate sized hiatal hernia. Liver, spleen, adrenal glands, kidneys and pancreas are normal. There is no biliary or pancreatic ductal dilatation. There is no hydronephrosis. There is no evidence for a bowel obstruction. The appendix is normal. There is a small amount of fluid within the pelvis. Extensive right upper quadrant inflammation is centered on the hepatic flexure of the colon. Colonic diverticulosis is present. Marked wall thickening of the hepatic flexure of the colon is noted with extensive adjacent inflammation. There is no free air. There is an elongated rim-enhancing fluid collection likely within the wall of the colon which measures approximately 7 x 1.4 cm. No drainable fluid collection is identified. No additional sites of inflammation are identified. Status post sigmoid resection. IMPRESSION: Extensive inflammation centered on the hepatic flexure of the colon consistent with severe acute diverticulitis. No extraluminal gas. Elongated rim- enhancing fluid collection likely within the wall of the colon which measures approximately 7 x 1.4 cm. This favors an intramural abscess. No drainable fluid collection. Follow-up colonoscopy once symptoms resolve is recommended to exclude the less likely possibility of an underlying colonic lesion. ACT 112: Negative or not required by law. Electronically signed by: Diego De La Garza M.D. 12/04/2024 12:40 PM Supervising Physician Co-Signing Physician Notes 59-year-old lady with PMH of diverticulitis status post partial bowel resection 7 years ago, hyperparathyroidism, subclinical hypothyroidism, HLD, MTHFR defici ency, arthralgia of temporomandibular joint, MDD, alcohol use disorder, MARGE, ADHD presented to the ED with complaint of abdominal pain. she reports pain ongoing for 3 days, worsening, has decreased appetite since yesterday, some nausea, denies vomiting. Last bowel movement yesterday. Reports developing fever since yesterday, measured today morning at 100.6F per pt. Patient noted to have temperature up to 38.5 C in the ED. Labs reviewed, WBC elevated at 11.9 5K, renal function fairly WNL, liver function with slight elevation of AST and ALT, beta-hCG negative. Admitting CTAP with severe acute diverticulitis of hepatic flexure associated with intramural abscess 7 x 1.4 cm. No extraluminal gas noted. Diverticulitis with abscess Sepsis POA: Secondary to above, pulse rate and temperature elevated at presentation. General surgery evaluated, n.p.o., IV fluid, Zosyn, pain management. Nausea control. On Exam: GENERAL: Alert and oriented x3. NAD, on RA. Anxious appearing. HEENT: No pallor, no icterus. Pupils equal, round and reactive to light. dry mucosa moist. NECK: No JVD, no neck masses. HEART: S1 and S2 heard. Regular rate and rhythm. HR in high 90s. No murmur, no gallop. RESPIRATORY SYSTEM: Normal AP diameter. No accessory muscle use. No wheezing, no crackles. ABDOMEN: Soft, bowel sounds present, old healed lower midline surgical scar, tender abd x mild, diffuse, no distention. CENTRAL NERVOUS SYSTEM: No facial droop. Speech is clear. Obeys simple commands. Moves extremities. EXTREMITIES: No edema, no erythema seen. I have seen and examined the patient and have discussed the case with the provider above. I agree with the assessment and plan as stated. Time spent separately: 30 min
[2024-12-04] MEDS: ACETAMINOPHEN 1,000 MG/100 ML VIAL IV PRN (15:20)
[2024-12-04] MEDS: SODIUM CHLORIDE 0.9% 500 ML IV ONE (16:29)
[2024-12-04] MEDS ORDERED: ONDANSETRON INJ 2 MG/ML 2 ML VIAL IV PRN (17:14)
[2024-12-04] MEDS: MoRPHine SULFATE 4 MG/ML 1 ML CARP\\VIAL IV PRN (17:20)
[2024-12-04] MEDS: LACTATED RINGER'S 1,000 ML IV SCH (17:48)
[2024-12-04] MEDS ORDERED: PIPERACILLIN/TAZOBACTAM 4.5 GM/100 ML BAG IV ONE (18:00)
[2024-12-04] MEDS: PIPERACILLIN/TAZOBACTAM 4.5 GM/100 ML BAG IV SCH (20:00)
[2024-12-04] MEDS: MoRPHine SULFATE 2 MG/ML CARP IV PRN (20:55)
[2024-12-04] MEDS ORDERED: PIPERACILLIN/TAZOBACTAM 4.5 GM/100 ML BAG IV SCH (23:00)
--- OUTSIDE RECORDS SUMMARY | 2024-12-05 00:15 | External Medical Summary | Summary of Care ---
Author Name Unknown Organization [facility] Address [address] [place] [address] Phone [phone] Care Team Providers Care Maintainer Central Office Name Role Phone Mariya Mario Primary Care Provider [phone] Reason for Referral * Precert (Within 24 hrs (call dept; emergent)) - Authorized Specialty Diagnoses / Procedures Referred By Colby t Referred To Contact Radiology Diagnoses Abdominal pain, generalized Procedures CT ABD/PELVIS W IV AND W ORAL CONTRAST Marva Lai CRNP [address] [place] [address] Phone: tel: fax: Referral ID Status Reason Start Date Expiration Date V isits Requested Visits Authorized [id number] Authorized 12/04/2024 999 999 Reason for Visit * Reason Comments Acute Stomach pain that co mes in waves x 2 days, getting worse. Headache, fever. Hx of bowel resection Encounter Details Date Type Department Care Team (Latest Contact Info) Description 12/04/2024 8:40 AM EST Office Visit Family [facility] [address] [place] [id number] Marva Lai CRNP [address] [place] [id number] Abdominal pain, generalized*; History of bowel resection; Generalized anxiety disorder; MDD (major depressive disorder), recurrent episode, moderate (HCC); Personal history of malignant neoplasm of breast; ADHD (attention deficit hyperactivity disorder), combined type; Alcohol use disorder, moderate, in sustained remission ([facility]) Allergies Active Allergy Reactions Criticality Noted Date Comments Adhesive Tape 05/29/2016 Blister from core bx done 04/2016 Hydromorphone 08/07/2022 [place] unwell documented as of this encounter (statuses as of 12/04/2024) Medications Levothyroxine Sodium 25 MCG Oral Tablet [...] as of this encounter (statuses as of 12/04/2024) Active Problems Problem Noted Date Diagnosed Date [...] Overview (10/02/2017): Noted incidentally on MRI at [facility] Summer 2015. Will obtain record. Personal [...] as of this encounter (statuses as of 12/04/2024) Resolved Problems Problem Noted Date Diagnosed Date Resolved Date Malignant neoplasm of upper- outer quadrant of right breast in female, estrogen receptor positive 01/11/2022 01/13/2024 Overview (01/13/2024): Duplicate Abnormal mammogram with microcalcification 05/24/2015 10/02/2017 Coagulation disorder 12/28/2010 020 Overview (04/29/2011): MTHFR: POSITIVE FOR ONE COPY OF THE C677T MUTATION normal homocysteine level done at [facility] 12/20/10 Anticoagulation management encounter 12/25/2010 04/29/2011 alf current use of ant icoagulant therapy 12/25/2010 04/29/2011 Overview (07/29/2017): ICD-10 update of inactive term Pulmonary embolus 12/20/2010 07/19/2022 Overview (04/29/2011): [facility] only risk factor was recent foot surgery. Temporomandibular joint diso rders, unspecified 06/02/2009 07/19/2022 documented as of this encounter (statuses as of 12/04/2024) Immunizations Name Administration Dates Next Due COVID-19 [...] ages 0-17 years) Not on file 11/02/2024 Food Insecurity Answer Date Recorded Within the past 12 months, y ou worried that your food would run out before you got the money to buy more. Never true 11/02/19 25 Within the past 12 months, t he food you bought just didn't last and you didn't have money to get more. Never true 11/02/2024 Do you need food for this week? No 11/02/2024 Education Answer Date Recorded What is [...] file Not on file Not on file [facility] Not on file Not on file Not on file documented as of this encounter Last Filed Vital Signs Vital Sign Reading Time Taken Comments Blood Pressure 88/72 12/04/2024 8:44 AM EST Pulse 116 12/04/2024 8:44 AM EST Temperature 38.1 C (100.6 F) 12/04/2024 8:[address] Respiratory Rate - - Oxygen Saturation 97% 12/04/2024 8:44 AM EST Inhaled Oxygen Concentration - - Weight - - Height - - Body Mass Index - - documented in this encounter Progress Notes * Marva Lia CRNP - 12/04/2024 10:00 AM EST Images from the original note were not included. Subjective Destini Ramsey is a 59 year old female that presents for Acute (Stomach pain that comes in waves x 2 days, getting worse. Headache, fever. Hx of bowel resection) History of Present Illness The patient, with a history of diverticulitis, presents with abdominal pain that is reminiscent of her previous diverticulitis pain. The pain is located in the epigastric extends to a little below the belly button. The pain is not constant, but comes in waves and was first noticed two days ago. Thepatient initially attributed the pain to eating hot peppers, but the pain persisted and worsened bythe evening of the following day. Accompanying the abdominal pain, the patient also experienced a headache and feverish symptoms, with a recorded temperature over 100 degrees. The patient denies any changes in bowel movements, blood in urine, or pain during urination. The patient also denies any recent substance use, including marijuana, tobacco, and alcohol. Objective Vitals: 12/04/24 0844 Temp: (!) 100.6 F (38.1 C) Pulse: 116 SpO2: 97% BP: 88/72 Physical Exam VITALS: T- 100, BP- 88/72 Physical Exam Constitutional: Appearance: Normal appearance. HENT: Head: Normocephalic. Cardiovascular: Rate and Rhythm: Normal rate and regular rhythm. Pulmonary: Effort: Pulmonary effort is normal. Breath sounds: Normal breath sounds. Abdominal: General: Bowel sounds are normal. Tenderness: There is generalized abdominal tenderness and tenderness in the epigastric area. There is no right CVA tenderness or left CVA tenderness. Musculoskeletal: Cervical back: Neck supple. Skin: General: Skin is warm. Neurological: Mental Status: She is alert and oriented to person, place, and time. Psychiatric: Mood and Affect: Mood is anxious. Affect is tearful. I have reviewed the following results: Results Assessment and Plan Assessment & Plan Abdominal Pain Epigastric pain to the belly button, intermittent and wave-like in nature, reminiscent of previous diverticulitis pain. Fever and headache also present. No nausea, vomiting, diarrhea, or constipation. No urinary symptoms. Pain started two days ago. -Recommend ER, initially patient refused so blood work/imaging ordered. However, patient cried out in the waiting room for pain, a nurse offered to call ambulance and patient was agreeable to go ER. Headache and Fever Concurrent with abdominal pain. No respiratory symptoms. Negative COVID test yesterday. History of Diverticulitis Previous episode of similar pain. No recent ER reports available for review. -Consider this in differential diagnosis based on patient's history and current symptoms. Hypotension Noted during visit, concerning w/ fever and abdominal pain. Abdominal pain, generalized (Primary) - CT ABD/PELVIS W IV AND W ORAL CONTRAST - CBC WITH WBC DIFFERENTIAL AND ANEMIA REFLEX WORKUP; Future; Expected date: 12/04/2024 - COMPREHENSIVE METABOLIC PANEL; Future; Expected date: 12/04/2024 - LIPASE; Future; Expected date: 12/04/2024 History of bowel resection Generalized anxiety disorder MDD (major depressive disorder), recurrent episode, moderate (HCC) Personal history of malignant neoplasm of breast ADHD (attention deficit hyperactivity disorder), combined type Alcohol use disorder, moderate, in sustained remission (HCC) Wrap-Up Check-out note: Please schedule short term follow up tomorrow Time: I spent a total of 40-54 minutes (exact time 40 mins) on the date of service in preparation, delivery, and documentation of the care provided to Destini Ramsey excluding any time spent in the performance of separately billed services. Text in this note was generated using an [employer] documentation service. I discussed the use of a device to record and summarize our discussion today. All persons present during the encounter consented to its use. documented in this encounter Nursing Notes * Arabella Sierra CMA - 12/04/2024 8:47 AM EST The patient has been properly identified by confirmation of name and date of . Chief Complaint Patient presents with Acute Stomach pain that comes in waves x 2 days, getting worse. Headache, fever. Hx of bowel resection documented in this encounter Plan of Treatment Upcoming Encounters Date Type Department Care Team (Late st Contact Info) Description 12/31/2024 12:00 PM EST Telemedicine Psychiatry Lazaro Farmer [address] [place] [phone] Clementina Kincaid MD [address] [phone] 03/16/2025 1:00 PM EDT Imaging Radiology [facility] [address] [facility] [place] [phone] 05/06/2025 11:00 AM EDT Office Visit Family Practice [facility] [address] [facility] [place] [id number] Mariya Mario CRNP [address] [place] [phone] Scheduled Orders Name Type Priority Associated Diagnoses Orde r Schedule CT ABD/PELVIS W IV AND W ORAL CONTRAST Medical Imaging STAT Abdominal pain, generalized Ordered: 12/04/2024 CBC WITH WBC DIFFERENTIAL AND ANEMIA REFLEX WORKUP Lab STAT Abdominal pain, generalized Expected: 12/04/2024 (Approximate), Expires: 12/04/2025 COMPREHENSIVE METABOLIC PANEL Lab STAT Abdominal pain, generalized Expected: 12/04/2024 (Approximate), Expires: 12/04/2025 LIPASE Lab Routine Abdominal pain, generalized Expected: 12/04/2024 (Approximate), Expires: 12/04/2025 Scheduled Procedures Name Priority Associated Diagnoses Date/Ti me COLONOSCOPY FLEXIBLE PROXIMA L DIAGNOSTIC Recall Special screening for malignant neoplasms, colon Health Maintenance Due Date Last Done Comments HPV/Co-Test 1993 Cologuard 2008 Fecal Occult Blood Test 2008 Sigmoidoscopy 2008 Pneumococcal Vaccine: 50+ Years (1 of - PCV) 2013 Depression Monitoring 06/25/2024 06/25/2023 [...] as of this encounter Visit Diagnoses Diagnosis Abdominal pain, generalized- Primary History of bowel resection Generalized anxiety disorder MDD (major depressive disorder), recurrent episode, moderate (HCC) Major depressive disorder, recurrent episode, moderate Personal history of malignant neoplasm of breast ADHD (attention deficit hyperactivity disorder), combined type Attention deficit disorder with hyperactivity Alcohol use disorder, moderate, in sustained remission (HCC) documented in this encounter Care Teams Maintainer Central Office Relationship Specialty Start Date End Date Mariya Mario CRNP [address] [phone] PCP - General Nurse Practitioner 11/05/24 documented as of this encounter
[2024-12-05] MEDS: KETOROLAC TROMETHAMINE 15 MG/ML VIAL IV ONE (03:11)
[2024-12-05] MEDS: MoRPHine SULFATE 2 MG/ML CARP IV STA (03:20)
[2024-12-05 03:21] LABS: Appearance Urine Clear (Clear); Bacteria Urine Automated None Seen (None Seen); Bilirubin Urine Negative (Negative); Blood Urine Trace (Negative); Cast Urine Automated 0-2 /lpf (0-2); Color Urine Yellow; Glucose Urine UA Negative (Negative); Ketones Urine Negative (Negative); Leukocyte Esterase Urine 1+ (Negative); Mucus Urine Present (None Prsent); Nitrite Urine Negative (Negative); Protein Urine Negative (Negative); Specific Gravity Urine 1.023 (1.000-1.030); Urobilinogen Urine Negative (Negative)
[2024-12-05 06:06] LABS: Albumin Level 3.5 gm/dl (3.4-5.0); Bilirubin,Total 0.8 mg/dl (0.2-1.0); Calcium 8.2 mg/dl (8.6-10.3); Potassium 3.8 mmol/L (3.5-5.1)
[2024-12-05 06:17] LABS: Albumin Globulin Ratio 1.4 (0.9-2); BUN Creatinine Ratio 16.2 (10-20); Creatinine Clr Calc Pharmacy 81.3 ml/min; Globulin 2.5 gm/dl (2.5-4.0)
[2024-12-05 06:36] LABS: Hematocrit (blood only) 31.6 % (37.0-47.0); Hemoglobin 10.7 g/dl (12.0-16.0); Mean Corpuscular Hemoglobin 30.8 pg (25.0-34.0); Mean Corpuscular Hgb Conc 33.9 g/dL (32.0-36.0); Mean Corpuscular Volume 91.1 fL (80.0-100.0); Mean Platelet Volume 11.6 fL (9.4-12.4); Platelet Count 210 K/uL (130-400); RDW Coefficient of Variation 13.1 % (11.5-14.5); RDW Standard Deviation 43.3 fL (36.4-46.3); Red Blood Count 3.47 M/uL (4.20-5.40); White Blood Count 7.31 K/ul (4.8-10.8)
[2024-12-05] MEDS ORDERED: SODIUM CHLORIDE 0.9% 1,000 ML IV ONE (07:44)
[2024-12-05] MEDS: SODIUM CHLORIDE 0.9% 1,000 ML IV SCH (08:07)
[2024-12-05] MEDS: MoRPHine SULFATE 4 MG/ML 1 ML CARP\\VIAL IV PRN (08:08)
--- NOTE | 2024-12-05 08:54 | Surgery Progress Note ---
Date of Service December 05, 2024 Assessment & Plan (1) Diverticulitis of intestine with abscess: Plan: acute diverticulitis with intramural abscess, abd pain still present less severe than yesterday , abd soft, TTP VSS , febrile over night , WBC wnl passing flatus denies n/v Keep NPO with sips and chips Continue IV Fluids for hydration, IV antibiotic conservative treatment Will follow along Admission and Anticipated Discharge Date Admission Date: December 04, 2024 Supervising Physician Co-Signing Physician Notes pnt S&E, labs reviewed, agree with above. Diverticulitis w/ intramural abscess at hepatic flexure. Low grade fevers overnight, pain improved but still present. afvss, abd soft, ttp RUQ. wbc normal. continue bowel rest, iv abx, may start clears tomorrow if doing well. Subjective abd pain less than yesterday denies cp, sob, fever/chills +flatus Review of Systems Constitutional: no fever and no chills Respiratory: no dyspnea Cardiovascular: no chest pain Gastrointestinal: + abdominal pain; no nausea and no vomit ing Musculoskeletal: no muscle weakness Psychiatric: no confusion Physical Exam Constitutional: cooperative; no acute distress and + uncomfortable Respiratory: normal respiratory effort and able to speak in complete sentences; no respiratory distress Cardiovascular: Rate/Rhythm: regular rate Gastrointestinal (Abdomen): Inspection/Auscultation: + abdominal surgical sc ar; abdomen not distended Percussion/Palpation: + abdomen tender and abdomen soft Psychiatric: Orientation: alert and oriented x 3 Results & Data Vital Signs (Past 12 Hours) Vital Signs Temp Pulse Pulse Resp BP Pulse Ox O2 Del Method 12/05/24 07:10 75 12/05/24 07:06 98.4 F 81 18 92/63 L 97 Room Air 12/05/24 03:40 98.6 F 12/05/24 02:21 100.2 F H 89 20 118/77 96 Room Air 12/04/24 22:44 99.9 F H 87 18 101/65 100 Room Air 12/04/24 21:35 92 H Results CBC w Diff Results: RBC 3.47 M/uL (4.20-5.40) L 12/05/24 WBC 7.31 K/ul (4.8-10.8) 12/05/24 Hgb 10.7 g/dl (12.0-16.0) L 12/05/24 Hct 31.6 % (37.0-47.0) L 12/05/24 MCV 91.1 fL (80.0-100.0) 12/05/24 MCH 30.8 pg (25.0-34.0) 12/05/24 MCHC 33.9 g/dL (32.0-36.0) 12/05/24 RDW Standard Deviation 43.3 fL (36.4-46.3) 12/05/24 RDW Coefficient of Variation 13.1 % (11.5-14.5) 12/05/24 Plt Count 210 K/uL (130-400) 12/05/24 MPV 11.6 fL (9.4-12.4) 12/05/24 Neutrophils (%) (Auto) 82.9 % 12/04/24 Lymphocytes (%) (Auto) 6.6 % 12/04/24 Monocytes # (Auto) 1.12 K/uL (0.11-0.59) H 12/04/24 Eosinophils # (Auto) 0.03 K/uL (0.00-0.50) 12/04/24 Immature Granulocyte % (Auto) 0.4 % 12/04/24 Neutrophils # (Auto) 9.91 K/uL (1.40-6.50) H 12/04/24 Lymphocytes # (Auto) 0.79 K/uL (1.20-3.40) L 12/04/24 Monocytes # (Auto) 1.12 K/uL (0.11-0.59) H 12/04/24 Eosinophils # (Auto) 0.03 K/uL (0.00-0.50) 12/04/24 Basophils # (Auto) 0.05 K/uL (0.00-0.20) 12/04/24 Immature Granulocyte # (Auto) 0.05 K/uL (0.01-0.20) 5 PG Care Time/CCT Total # of Minutes Spent Total Time Spent with Patient: Total time spent is greater than 50% in coordination of care (as documented) at patient's floor/unit and/or counseling patient: Coding Level of Care Code 14356 SUB INP/OBS CARE 11/21MIN Diagnoses Diverticulitis of intestine with abscess K57.80
[2024-12-05] MEDS: DEXTROAMPHETAMINE/AMPHETAMINE ER 10 MG CAP PO SCH (09:18)
[2024-12-05] MEDS: buPROPion XL 300 MG TABCR PO SCH (09:18)
--- NOTE | 2024-12-05 12:31 | Hospitalist Progress Note ---
Date of Service December 05, 2024 Assessment & Plan (1) Diverticulitis of intestine with abscess: (2) Mood disorder: (3) History of colon resection: Plan This is a 59-year-old female with PMH of diverticulitis history status post partial bowel resection [address] Eduardo, mood disorder, dyslipidemia, breast CA (s/p lumpectomy and radiation), migraines and other medical problems listed below who presents from PCP's office today with abdominal pain x 3 days and was found to have diverticulitis with abscess. Sepsis Diverticulitis with intramural abscess at hepatic flexure T: 38.5 C, tachycardic at 102 bpm with BP 96/67 in ED with WBC 11.95k, lactate WNL, slight elevation of AST/ALT --CT abd/pelvis with extensive inflammation centered on the hepatic flexure of the colon consistent with severe acute diverticulitis. No extraluminal gas. Elongated rim-enhancing fluid collection likely within the wall of the colon which measures approximately 7 x 1.4 cm. This favors an intramural abscess. No drainable fluid collection. Follow-up colonoscopy once symptoms resolve is recommended --Blood cultures pending -- Continue bowel rest, IV fluids and Zosyn Appreciate surgery input Continue conservative management as per surgery Pain control, antiemetics as needed Mood disorder Continue Wellbutrin ADHD Continue Adderall Hypothyroidism Continue levothyroxine HLD Resume statin as able DVT Px: SCDs for now Code status: FULL CODE Admission and Anticipated Discharge Date Admission Date: December 04, 2024 Subjective Patient is seen and examined at bedside Less abdominal pain when compared to yesterday Denies any nausea, vomiting, chest pain, dyspnea Also denies any rectal bleed No other complaints Review of Systems Review of Systems: All systems reviewed & are unremarkable except as noted in Subjective Physical Exam Physical Exam: Physical Exam: Vitals signs as noted above General Appearance:Moderately built and nourished, no apparent distress Head: normocephalic, Atraumatic Eyes: normal inspection, EOMI Neck: supple, Trachea midline Respiratory/Chest: Normal breath sounds, CTA, No accessory muscle use Cardiovascular: S1, S2, No murmur Abdomen/GI:Soft, mild tender, Bowel sounds present, nondistended, no guarding or rigidity Extremities/Musculoskeletal:normal inspection, no edema Neurologic/Psych:AAOX3, grossly no focal neurological deficits Skin: normal color, warm Results & Data Results & Data Vital Signs (Past 12 Hours) Vital Signs Temp Pulse Pulse Resp BP Pulse Ox O2 Del Method 12/05/24 11:31 37.1 C 82 18 114/76 98 Room Air 12/05/24 07:10 75 12/05/24 07:06 36.9 C 81 18 92/63 L 97 Room Air 12/05/24 03:40 37.0 C 12/05/24 02:21 37.9 C H 89 20 118/77 96 Room Air Laboratory Results Short CBC 12/05/24 Range/Units 05:25 WBC 7.31 (4.8-10.8) K/ul Hgb 10.7 L (12.0-16.0) g/dl Hct 31.6 L (37.0-47.0) % Plt Count 210 (130-400) K/uL BMP 12/05/24 05:25 Sodium 138 Potassium 3.8 Chloride 108 H Carbon Dioxide 22 BUN 11 Creatinine 0.68 Glucose 90 Calcium 8.2 L Liver Function 12/05/24 Range/Units 05:25 Total Bilirubin 0.8 (0.2-1.0) mg/dl AST 20 (13-39) U/L ALT 39 (7-52) U/L Alkaline Phosphatase 57 (34-104) U/L Albumin 3.5 (3.4-5.0) gm/dl Urine 12/05/24 Range/Units 02:17 Urine Color Yellow Urine Appearance Clear (Clear) Urine pH 6.0 (4.5-7.5) Ur Specific [place] 1.023 (1.000-1.030) Urine Protein Negative (Negative) Urine Glucose (UA) Negative (Negative)
[2024-12-05] MEDS: oxyCODONE HCL IR 5 MG TAB (IMMEDIATE RELEASE) PO PRN (21:58)
[2024-12-06] MEDS: LEVOTHYROXINE SODIUM 25 MCG TABLET PO SCH (05:45)
[2024-12-06 09:25] LABS: Hematocrit (blood only) 34.8 % (37.0-47.0); Hemoglobin 11.4 g/dl (12.0-16.0); Mean Corpuscular Hemoglobin 30.2 pg (25.0-34.0); Mean Corpuscular Hgb Conc 32.8 g/dL (32.0-36.0); Mean Corpuscular Volume 92.1 fL (80.0-100.0); Mean Platelet Volume 10.9 fL (9.4-12.4); Platelet Count 242 K/uL (130-400); RDW Coefficient of Variation 12.6 % (11.5-14.5); RDW Standard Deviation 42.4 fL (36.4-46.3); Red Blood Count 3.78 M/uL (4.20-5.40); White Blood Count 5.89 K/ul (4.8-10.8)
[2024-12-06] MEDS: NSS + 20MEQ KCL 20 MEQ/1,000 ML BAG IV SCH (09:27)
--- NOTE | 2024-12-06 09:41 | Surgery Progress Note ---
Date of Service December 06, 2024 Assessment & Plan (1) Diverticulitis of intestine with abscess: Plan: Right-sided diverticulitis with intramural abscess, steadily improving with nonoperative management. Advance to clear liquids, will keep this for today Continue antibiotics Will need outpatient colonoscopy in 6 to 8 weeks as symptoms improved Surgical follow Admission and Anticipated Discharge Date Admission Date: December 04, 2024 Subjective Colitis secondary to suspected diverticulitis of the hepatic flexure. Feeling better, still some discomfort but steadily improving. No fevers. Physical Exam Constitutional: WD/WN, vitals as above Gastrointestinal (Abdomen): Percussion/Palpation: + abdomen tender (Mild tenderness to palpation, improved from yesterday) and abdomen soft; no guarding, abdomen not rigid and no hepatosplenomegaly Results & Data Vital Signs (Past 12 Hours) Vital Signs Temp Pulse Pulse Resp BP Pulse Ox O2 Del Method 12/06/24 08:26 36.9 C 81 16 112/75 98 Room Air 12/06/24 07:20 87 12/06/24 05:40 68 18 110/70 12/06/24 02:39 36.9 C 90 18 98/64 L 95 Room Air 12/05/24 22:50 36.9 C 91 H 18 118/76 98 Room Air 12/05/24 21:45 91 H Laboratory Results Laboratory Results - last 24 hr 12/06/24 08:45 WBC 5.89 RBC 3.78 L Hgb 11.4 L Hct 34.8 L MCV 92.1 MCH 30.2 MCHC 32.8 RDW Std Deviation 42.4 RDW Coeff of Chidi 12.6 Plt Count 242 MPV 10.9 Sodium Pending Potassium Pending Chloride Pending Carbon Dioxide Pending Anion Gap Pending BUN Pending Creatinine Pending Est Cr Clr Drug Dosing Pending eGFR Pending BUN/Creatinine Ratio Pending Glucose Pending Calcium Pending Total Bilirubin Pending AST Pending ALT Pending Alkaline Phosphatase Pending Total Protein Pending Albumin Pending Globulin Pending Albumin/Globulin Ratio Pending PG Care Time/CCT Total # of Minutes Spent Total Time Spent with Patient: Total time spent is greater than 50% in coordination of care (as documented) at patient's floor/unit and/or counseling patient: Coding Level of Care Code 09492 SUB INP/OBS CARE 2/35MIN Diagnoses Diverticulitis of intestine with abscess K57.80
[2024-12-06 09:46] LABS: Albumin Globulin Ratio 1.2 (0.9-2); Albumin Level 3.6 gm/dl (3.4-5.0); BUN Creatinine Ratio 20.3 (10-20); Bilirubin,Total 0.6 mg/dl (0.2-1.0); Calcium 8.8 mg/dl (8.6-10.3); Creatinine Clr Calc Pharmacy 93.7 ml/min; Globulin 3.1 gm/dl (2.5-4.0); Potassium 3.9 mmol/L (3.5-5.1); Total Protein 6.7 gm/dl (6.0-8.3)
--- NOTE | 2024-12-06 14:29 | Hospitalist Progress Note ---
Date of Service December 06, 2024 Assessment & Plan (1) Diverticulitis of intestine with abscess: (2) Mood disorder: (3) History of colon resection: Plan This is a 59-year-old female with PMH of diverticulitis history status post partial bowel resection [address] Eduardo, mood disorder, dyslipidemia, breast CA (s/p lumpectomy and radiation), migraines and other medical problems listed below who presents from PCP's office today with abdominal pain x 3 days and was found to have diverticulitis with abscess. Sepsis Diverticulitis with intramural abscess at hepatic flexure T: 38.5 C, tachycardic at 102 bpm with BP 96/67 in ED with WBC 11.95k, lactate WNL, slight elevation of AST/ALT --CT abd/pelvis with extensive inflammation centered on the hepatic flexure of the colon consistent with severe acute diverticulitis. No extraluminal gas. Elongated rim-enhancing fluid collection likely within the wall of the colon which measures approximately 7 x 1.4 cm. This favors an intramural abscess. No drainable fluid collection. Follow-up colonoscopy once symptoms resolve is recommended --Blood cultures pending -Continue IV fluids and Zosyn Appreciate surgery input Continue conservative management as per surgery Pain control started on clear liquid diet today Surgery following Mood disorder Continue Wellbutrin ADHD Continue Adderall Hypothyroidism Continue levothyroxine HLD Resume statin as able DVT Px: SCDs for now Code status: FULL CODE Admission and Anticipated Discharge Date Admission Date: December 04, 2024 Subjective Patient is seen and examined at bedside Abdominal pain continues to improve Started on liquid diet today No new complaints Denies any nausea, vomiting, chest pain, dyspnea Review of Systems Review of Systems: All systems reviewed & are unremarkable except as noted in Subjective Physical Exam Physical Exam: Physical Exam: Vitals signs as noted above General Appearance:Moderately built and nourished, no apparent distress Head: normocephalic, Atraumatic Eyes: normal inspection, EOMI Neck: supple, Trachea midline Respiratory/Chest: Normal breath sounds, CTA, No accessory muscle use Cardiovascular: S1, S2, No murmur Abdomen/GI:Soft, mild tender, Bowel sounds present, nondistended, no guarding or rigidity Extremities/Musculoskeletal:normal inspection, no edema Neurologic/Psych:AAOX3, grossly no focal neurological deficits Skin: normal color, warm Results & Data Results & Data Vital Signs (Past 12 Hours) Vital Signs Temp Pulse Pulse Resp BP Pulse Ox O2 Del Method 12/06/24 13:58 79 12/06/24 10:57 37.4 C 91 H 18 131/79 99 Room Air 12/06/24 08:26 36.9 C 81 16 112/75 98 Room Air 12/06/24 07:20 87 12/06/24 05:40 68 18 110/70 12/06/24 02:39 36.9 C 90 18 98/64 L 95 Room Air Laboratory Results Short CBC 12/06/24 Range/Units 08:45 WBC 5.89 (4.8-10.8) K/ul Hgb 11.4 L (12.0-16.0) g/dl Hct 34.8 L (37.0-47.0) % Plt Count 242 (130-400) K/uL BMP 12/06/24 08:45 Sodium 137 Potassium 3.9 Chloride 109 H Carbon Dioxide 16 L BUN 12 Creatinine 0.59 L Glucose 64 L Calcium 8.8 Liver Function 12/06/24 Range/Units 08:45 Total Bilirubin 0.6 (0.2-1.0) mg/dl AST 16 (13-39) U/L ALT 29 (7-52) U/L Alkaline Phosphatase 67 (34-104) U/L Albumin 3.6 (3.4-5.0) gm/dl
--- NOTE | 2024-12-07 09:23 | Surgery Progress Note ---
Date of Service December 07, 2024 Assessment & Plan (1) Diverticulitis of intestine with abscess: Plan: She is tolerating clears, advance to fulls Can advance to low fiber later tonight versus tomorrow morning She is afebrile without leukocytosis Tentative plan for discharge home tomorrow pending her tolerating diet advancement Admission and Anticipated Discharge Date Admission Date: December 04, 2024 Subjective Patient seen and examined. Pain much improved. No N/V. Tolerating clears. Afebrile. Review of Systems Constitutional: no fever and no chills Respiratory: no cough and no dyspnea Cardiovascular: no chest pain and no dyspnea on exertion Gastrointestinal: + abdominal pain; no nausea and no vomit ing Integumentary: no lesions, no changing lesions and no sores Psychiatric: no behavioral changes and no depression Physical Exam Constitutional: WD/WN, vitals as above Respiratory: normal respiratory effort, lungs clear to auscultation Cardiovascular: RRR, no murmur, no edema Gastrointestinal (Abdomen): Inspection/Auscultation: abdomen normal to inspection; abdomen not distended Percussion/Palpation: abdomen soft; abdomen nontender, no guarding and no hernia Skin: no rashes, warm and dry Psychiatric: A+Ox3, euthymic affect Results & Data Vital Signs (Past 12 Hours) Vital Signs Temp Pulse Pulse Resp BP Pulse Ox O2 Del Method 12/07/24 07:43 36.4 C L 84 18 130/82 100 Room Air 12/06/24 22:39 37.1 C 71 18 115/81 98 Room Air 12/06/24 22:05 76 PG Care Time/CCT Total # of Minutes Spent Total Time Spent with Patient: Total time spent is greater than 50% in coordination of care (as documented) at patient's floor/unit and/or counseling patient: Coding Level of Care Code 04338 SUB INP/OBS CARE 11/21MIN Diagnoses Diverticulitis of intestine with abscess K57.80
[2024-12-07 09:28] LABS: Basophils # (auto) 0.04 K/uL (0.00-0.20); Basophils % (auto) 0.8 %; Eosinophils # (auto) 0.11 K/uL (0.00-0.50); Eosinophils % (auto) 2.2 %; Hematocrit (blood only) 34.8 % (37.0-47.0); Immature Granulocytes # (auto) 0.02 K/uL (0.01-0.20); Immature Granulocytes % (auto) 0.4 %; Lymphocytes # (auto) 1.11 K/uL (1.20-3.40); Lymphocytes % (auto) 22.7 %; Mean Corpuscular Hemoglobin 30.8 pg (25.0-34.0); Mean Corpuscular Hgb Conc 34.5 g/dL (32.0-36.0); Mean Corpuscular Volume 89.5 fL (80.0-100.0); Mean Platelet Volume 11.1 fL (9.4-12.4); Monocytes # (auto) 0.37 K/uL (0.11-0.59); Monocytes % (auto) 7.6 %; Neutrophils # (auto) 3.25 K/uL (1.40-6.50); Neutrophils % (auto) 66.3 %; Platelet Count 281 K/uL (130-400); RDW Coefficient of Variation 12.3 % (11.5-14.5); RDW Standard Deviation 40.3 fL (36.4-46.3); Red Blood Count 3.89 M/uL (4.20-5.40)
[2024-12-07 09:46] LABS: BUN Creatinine Ratio 8.1 (10-20); Calcium 9.2 mg/dl (8.6-10.3); Creatinine Clr Calc Pharmacy 89.2 ml/min; Potassium 3.6 mmol/L (3.5-5.1)
--- NOTE | 2024-12-07 15:40 | Hospitalist Progress Note ---
Date of Service December 07, 2024 Assessment & Plan (1) Diverticulitis of intestine with abscess: (2) Mood disorder: (3) History of colon resection: Plan This is a 59-year-old female with PMH of diverticulitis history status post partial bowel resection [address] Eduardo, mood disorder, dyslipidemia, breast CA (s/p lumpectomy and radiation), migraines and other medical problems listed below who presents from PCP's office today with abdominal pain x 3 days and was found to have diverticulitis with abscess. Sepsis Diverticulitis with intramural abscess at hepatic flexure T: 38.5 C, tachycardic at 102 bpm with BP 96/67 in ED with WBC 11.95k, lactate WNL, slight elevation of AST/ALT --CT abd/pelvis with extensive inflammation centered on the hepatic flexure of the colon consistent with severe acute diverticulitis. No extraluminal gas. Elongated rim-enhancing fluid collection likely within the wall of the colon which measures approximately 7 x 1.4 cm. This favors an intramural abscess. No drainable fluid collection. Follow-up colonoscopy once symptoms resolve is recommended --Blood cultures pending -Continue IV fluids and Zosyn Appreciate surgery input Continue conservative management as per surgery Pain control Advance to low fiber diet as tolerated Surgery following Likely discharge home tomorrow Mood disorder Continue Wellbutrin ADHD Continue Adderall Hypothyroidism Continue levothyroxine HLD Resume statin as able DVT Px: SCDs for now Code status: FULL CODE Admission and Anticipated Discharge Date Admission Date: December 04, 2024 Subjective Patient is seen and examined at bedside States feeling well today Tolerating full liquid diet No new complaints Abdominal pain improved Denies any nausea, vomiting, chest pain, dyspnea Review of Systems Review of Systems: All systems reviewed & are unremarkable except as noted in Subjective Physical Exam Physical Exam: Physical Exam: Vitals signs as noted above General Appearance:Moderately built and nourished, no apparent distress Head: normocephalic, Atraumatic Eyes: normal inspection, EOMI Neck: supple, Trachea midline Respiratory/Chest: Normal breath sounds, CTA, No accessory muscle use Cardiovascular: S1, S2, No murmur Abdomen/GI:Soft, mild tender, Bowel sounds present, nondistended, no guarding or rigidity Extremities/Musculoskeletal:normal inspection, no edema Neurologic/Psych:AAOX3, grossly no focal neurological deficits Skin: normal color, warm Results & Data Results & Data Vital Signs (Past 12 Hours) Vital Signs Temp Pulse Pulse Resp BP Pulse Ox O2 Del Method 12/07/24 15:32 36.5 C 86 20 130/86 100 Room Air 12/07/24 14:11 77 12/07/24 11:55 37.1 C 83 18 115/79 98 Room Air 12/07/24 10:07 82 12/07/24 07:43 36.4 C L 84 18 130/82 100 Room Air Laboratory Results Short CBC 12/07/24 Range/Units 08:49 WBC 4.90 (4.8-10.8) K/ul Hgb 12.0 (12.0-16.0) g/dl Hct 34.8 L (37.0-47.0) % Plt Count 281 (130-400) K/uL BMP 12/07/24 08:49 Sodium 137 Potassium 3.6 Chloride 108 H Carbon Dioxide 22 BUN 5 L Creatinine 0.62 Glucose 138 H Calcium 9.2
[2024-12-08 07:42] VITALS: RESP 18; O2SAT 98
--- NOTE | 2024-12-08 08:29 | Surgery Progress Note ---
Date of Service December 08, 2024 Assessment & Plan (1) Diverticulitis of intestine with abscess: Plan: She is tolerating a low fiber diet without abdominal pain Afebrile and feeling much better Give 14 days of PO ABX on discharge Colonoscopy in 6-8 weeks Surgery will sign off at this time Admission and Anticipated Discharge Date Admission Date: December 04, 2024 Subjective Pt seen and examined. Tolerating low fiber diet. Afebrile. No abdominal pain. Review of Systems Constitutional: no fever and no chills Respiratory: no cough and no dyspnea Cardiovascular: no chest pain and no dyspnea on exertion Gastrointestinal: no abdominal pain, no nausea and no vomiting Integumentary: no lesions, no changing lesions and no sores Psychiatric: no behavioral changes and no depression Physical Exam Constitutional: WD/WN, vitals as above Respiratory: normal respiratory effort, lungs clear to auscultation Cardiovascular: RRR, no murmur, no edema Gastrointestinal (Abdomen): Inspection/Auscultation: abdomen normal to inspection; abdomen not distended Percussion/Palpation: abdomen soft; abdomen nontender, no guarding and no hernia Skin: no rashes, warm and dry Psychiatric: A+Ox3, euthymic affect Results & Data Vital Signs (Past 12 Hours) Vital Signs Temp Pulse Pulse Resp BP Pulse Ox O2 Del Method 12/08/24 07:40 37 C 88 18 114/78 98 Room Air 12/08/24 03:23 93 H 12/08/24 03:00 36.7 C 86 16 96/64 L 97 Room Air 12/08/24 00:00 36.6 C 74 18 131/88 98 Room Air PG Care Time/CCT Total # of Minutes Spent Total Time Spent with Patient: Total time spent is greater than 50% in coordination of care (as documented) at patient's floor/unit and/or counseling patient: Coding Level of Care Code 50913 SUB INP/OBS CARE 11/21MIN Diagnoses Diverticulitis of intestine with abscess K57.80
[2024-12-08 11:12] VITALS: BP 116/78; TEMP 97.5
--- NOTE | 2024-12-08 11:18 | Hospitalist Progress Note ---
Date of Service December 08, 2024 Assessment & Plan (1) Diverticulitis of intestine with abscess: (2) Mood disorder: (3) History of colon resection: Plan This is a 59-year-old female with PMH of diverticulitis history status post partial bowel resection [address] Eduardo, mood disorder, dyslipidemia, breast CA (s/p lumpectomy and radiation), migraines and other medical problems listed below who presents from PCP's office today with abdominal pain x 3 days and was found to have diverticulitis with abscess. Sepsis Diverticulitis with intramural abscess at hepatic flexure T: 38.5 C, tachycardic at 102 bpm with BP 96/67 in ED with WBC 11.95k, lactate WNL, slight elevation of AST/ALT --CT abd/pelvis with extensive inflammation centered on the hepatic flexure of the colon consistent with severe acute diverticulitis. No extraluminal gas. Elongated rim-enhancing fluid collection likely within the wall of the colon which measures approximately 7 x 1.4 cm. This favors an intramural abscess. No drainable fluid collection. Follow-up colonoscopy once symptoms resolve is recommended --Blood cultures negative to date -Continue IV fluids and Zosyn>> transition to Augmentin on discharge Appreciate surgery input Continue conservative management as per surgery Pain control Tolerated low fiber diet Plan to discharge home today Will need colonoscopy as outpatient in 8 weeks Mood disorder Continue Wellbutrin ADHD Continue Adderall Hypothyroidism Continue levothyroxine HLD Resume statin DVT Px: SCDs for now Code status: FULL CODE Admission and Anticipated Discharge Date Admission Date: December 04, 2024 Subjective Patient is seen and examined at bedside Doing well today Denies any abdominal pain Tolerating low fiber diet Also denies any chest pain, dyspnea, nausea, vomiting Plan to be discharged home today Review of Systems Review of Systems: All systems reviewed & are unremarkable except as noted in Subjective Physical Exam Physical Exam: Physical Exam: Vitals signs as noted above General Appearance:Moderately built and nourished, no apparent distress Head: normocephalic, Atraumatic Eyes: normal inspection, EOMI Neck: supple, Trachea midline Respiratory/Chest: Normal breath sounds, CTA, No accessory muscle use Cardiovascular: S1, S2, No murmur Abdomen/GI:Soft, non tender, Bowel sounds present, nondistended, no guarding or rigidity Extremities/Musculoskeletal:normal inspection, no edema Neurologic/Psych:AAOX3, grossly no focal neurological deficits Skin: normal color, warm Results & Data Results & Data Vital Signs (Past 12 Hours) Vital Signs Temp Pulse Pulse Resp BP Pulse Ox O2 Del Method 12/08/24 11:10 36.4 C L 83 18 116/78 98 Room Air 12/08/24 09:28 73 12/08/24 07:40 37 C 88 18 114/78 98 Room Air 12/08/24 03:23 93 H 12/08/24 03:00 36.7 C 86 16 96/64 L 97 Room Air 12/08/24 00:00 36.6 C 74 18 131/88 98 Room Air
--- NOTE | 2024-12-08 11:23 | Discharge Summary ---
Date of Service December 08, 2024 Admission HPI Per Admitting Provider This is a 59-year-old female with PMH of diverticulitis history status post partial bowel resection [address] Eduardo, mood disorder, dyslipidemia, breast CA (s/p lumpectomy and radiation), migraines and other medical problems listed below who presents from PCP's office today with abdominal pain x 3 days. States pain developed and was diffuse and constant, worse with movement. Intermittent associated nausea but no vomiting. Developed headache and fever with Tmax of 100 F overnight. No changes to bowel movements. Was seen in clinic earlier today for this and sent to ED for further evaluation for possible diverticulitis. States she almost passed out there and feels very dehydrated. Pain is currently a 7/10. In ED, has received Toradol and dose of Zosyn. Noted to be febrile at 38.5 C, tachycardic at 102 bpm with BP 96/67. Admission Exam Per Admitting Provider General Appearance: WD/WN, vitals as above, NAD, sitting up in bed, anxious, intermittently tearful during interview Head: normocephalic, atraumatic Eyes: normal inspection, PERRL, conjunctivae normal, anicteric sclerae ENT: external ear and nose normal, oropharynx dry mucous membranes Neck: normal visual inspection, trachea midline, no thyromegaly Respiratory: normal respiratory effort, lungs clear to auscultation, no wheeze, rales, rhonchi. No accessory muscle use Cardiovascular: tachycardic rate, regular rhythm, normal peripheral pulses, no BLE edema. Vessels: no JVD Chest: normal inspection of chest Abdomen/GI: normal bowel sounds, diffuse TTP, soft, no hepatosplenomegaly Extremities/Musculoskeletal: no cyanosis or clubbing, extremities motor strength 5/5 Neurologic: PERRL, EOMI, accommodation nl, no face palsy, no dysarthria, CN's II-XI intact bilaterally and moves all extremities Psychiatric: A+Ox3, anxious Skin: no rashes, normal color, warm/dry Principal Diagnosis Sepsis Diverticulitis with intramural abscess at hepatic flexure Discharge Data Allergies Allergy/AdvReac Type Severity Reaction Status Date / Time adhesive Allergy Mild Tape Verified 12/04/24 14:15 blisters Consultations 12/04/24 17:14 Consult General Surgery Routine Procedures Performed Laboratory Results WBC 4.90 K/ul (4.8-10.8) 12/07/24 08:49 RBC 3.89 M/uL (4.20-5.40) L 12/07/24 08:49 Hgb 12.0 g/dl (12.0-16.0) 12/07/24 08:49 Hct 34.8 % (37.0-47.0) L 12/07/24 08:49 MCV 89.5 fL (80.0-100.0) 12/07/24 08:49 MCH 30.8 pg (25.0-34.0) 12/07/24 08:49 MCHC 34.5 g/dL (32.0-36.0) 12/07/24 08:49 RDW Std Deviation 40.3 fL (36.4-46.3) 12/07/24 08:49 RDW Coeff of Chidi 12.3 % (11.5-14.5) 12/07/24 08:49 Plt Count 281 K/uL (130-400) 12/07/24 08:49 MPV 11.1 fL (9.4-12.4) 12/07/24 08:49 Immature Gran % (Auto) 0.4 % 12/07/24 08:49 Neut % (Auto) 66.3 % 12/07/24 08:49 Lymph % (Auto) 22.7 % 12/07/24 08:49 Gregg % (Auto) 7.6 % 12/07/24 08:49 Eos % (Auto) 2.2 % 12/07/24 08:49 Baso % (Auto) 0.8 % 12/07/24 08:49 Neut # (Auto) 3.25 K/uL (1.40-6.50) 12/07/24 08:49 Lymph # (Auto) 1.11 K/uL (1.20-3.40) L 12/07/24 08:49 Gregg # (Auto) 0.37 K/uL (0.11-0.59) 12/07/24 08:49 Eos # (Auto) 0.11 K/uL (0.00-0.50) 12/07/24 08:49 Baso # (Auto) 0.04 K/uL (0.00-0.20) 12/07/24 08:49 Immature Gran # (Auto) 0.02 K/uL (0.01-0.20) 12/07/24 08:49 D-Dimer 360 ug/L FEU (0-500) 12/04/24 12:36 Sodium 137 mmol/L (136-145) 12/07/24 08:49 Potassium 3.6 mmol/L (3.5-5.1) 12/07/24 08:49 Chloride 108 mmol/L (98-107) H 12/07/24 08:49 Carbon Dioxide 22 mmol/L (21-32) 12/07/24 08:49 Anion Gap 7 (3-11) 12/07/24 08:49 BUN 5 mg/dl (6-23) L 12/07/24 08:49 Creatinine 0.62 mg/dl (0.6-1.2) 12/07/24 08:49 Est Cr Clr Drug Dosing 89.2 ml/min 12/07/24 08:49 eGFR 101.25 12/07/24 08:49 BUN/Creatinine Ratio 8.1 (10-20) L 12/07/24 08:49 Glucose 138 mg/dl (70-99(Fasting)) H 12/07/24 08:49 Lactate 0.9 mmol/L (0.4-2.0) 12/04/24 16:20 Calcium 9.2 mg/dl (8.6-10.3) 12/07/24 08:49 Total Bilirubin 0.6 mg/dl (0.2-1.0) 12/06/24 08:45 AST 16 U/L (13-39) 12/06/24 08:45 ALT 29 U/L (7-52) 12/06/24 08:45 Alkaline Phosphatase 67 U/L (34-104) 12/06/24 08:45 Total Protein 6.7 gm/dl (6.0-8.3) 12/06/24 08:45 Albumin 3.6 gm/dl (3.4-5.0) 12/06/24 08:45 Globulin 3.1 gm/dl (2.5-4.0) 12/06/24 08:45 Albumin/Globulin Ratio 1.2 (0.9-2) 12/06/24 08:45 Lipase 52 U/L (11-82) 12/04/24 11:20 HCG, Qual Negative (Negative) 12/04/24 12:36 Urine Color Yellow 12/05/24 02:17 Urine Appearance Clear (Clear) 12/05/24 02:17 Urine pH 6.0 (4.5-7.5) 12/05/24 02:17 Ur Specific [place] 1.023 (1.000-1.030) 12/05/24 02:17 Urine Protein Negative (Negative) 12/05/24 02:17 Urine Glucose (UA) Negative (Negative) 12/05/24 02:17 Urine Ketones Negative (Negative) 12/05/24 02:17 Urine Blood Trace (Negative) H 12/05/24 02:17 Urine Nitrite Negative (Negative) 12/05/24 02:17 Urine Bilirubin Negative (Negative) 12/05/24 02:17 Urine Urobilinogen Negative (Negative) 12/05/24 02:17 Ur Leukocyte Esterase 1+ (Negative) H 12/05/24 02:17 Urine WBC (Auto) 6-10 /hpf (0-5) H 12/05/24 02:17 Urine RBC (Auto) 3-5 /hpf (0-2) H 12/05/24 02:17 U Hyaline Cast (Auto) 0-2 /lpf (0-2) 12/05/24 02:17 U Epithel Cells (Auto) 3-5 /hpf (0-2) H 12/05/24 02:17 Urine Bacteria (Auto) None Seen (None Seen) 12/05/24 02:17 Urine Mucus Present (None Prsent) A 12/05/24 02:17 Impressions Abdomen/Pelvis CT 12/04/24 11:51 CT OF THE ABDOMEN AND PELVIS WITH CONTRAST CLINICAL HISTORY: Abdominal pain. COMPARISON STUDY: CT of the abdomen and pelvis July 15, 2022. TECHNIQUE: Following IV administration of 94 mL of Optiray, axial images of the abdomen and pelvis were obtained from the lung bases to the proximal femurs. Images were reviewed in the axial, sagittal, and coronal planes. IV contrast was administered without complication. Automated exposure control was utilized for the study. A dose lowering technique was utilized adhering to the principles of ALARA. CT DOSE: 713.68 mGy.cm FINDINGS: Lung bases are unremarkable. There is a moderate sized hiatal hernia. Liver, spleen, adrenal glands, kidneys and pancreas are normal. There is no biliary or pancreatic ductal dilatation. There is no hydronephrosis. There is no evidence for a bowel obstruction. The appendix is normal. There is a small amount of fluid within the pelvis. Extensive right upper quadrant inflammation is centered on the hepatic flexure of the colon. Colonic diverticulosis is present. Marked wall thickening of the hepatic flexure of the colon is noted with extensive adjacent inflammation. There is no free air. There is an elongated rim-enhancing fluid collection likely within the wall of the colon which measures approximately 7 x 1.4 cm. No drainable fluid collection is identified. No additional sites of inflammation are identified. Status post sigmoid resection. IMPRESSION: Extensive inflammation centered on the hepatic flexure of the colon consistent with severe acute diverticulitis. No extraluminal gas. Elongated rim- enhancing fluid collection likely within the wall of the colon which measures approximately 7 x 1.4 cm. This favors an intramural abscess. No drainable fluid collection. Follow-up colonoscopy once symptoms resolve is recommended to exclude the less likely possibility of an underlying colonic lesion. ACT 112: Negative or not required by law. Electronically signed by: Diego De La Garza M.D. 12/04/2024 12:40 PM Ordered Studies 12/04/24 11:51 CT Abd and Pelvis [CT abd pelvis IV con only] Stat Hospital Course (1) Diverticulitis of intestine with abscess: (2) Mood disorder: (3) History of colon resection: Plan This is a 59-year-old female with PMH of diverticulitis history status post partial bowel resection [address] Eduardo, mood disorder, dyslipidemia, breast CA (s/p lumpectomy and radiation), migraines and other medical problems listed below who presents from PCP's office today with abdominal pain x 3 days and was found to have diverticulitis with abscess. Sepsis Diverticulitis with intramural abscess at hepatic flexure T: 38.5 C, tachycardic at 102 bpm with BP 96/67 in ED with WBC 11.95k, lactate WNL, slight elevation of AST/ALT --CT abd/pelvis with extensive inflammation centered on the hepatic flexure of the colon consistent with severe acute diverticulitis. No extraluminal gas. Elongated rim-enhancing fluid collection likely within the wall of the colon which measures approximately 7 x 1.4 cm. This favors an intramural abscess. No drainable fluid collection. Follow-up colonoscopy once symptoms resolve is recommended --Blood cultures negative to date -Continue IV fluids and Zosyn>> transition to Augmentin on discharge Appreciate surgery input Continue conservative management as per surgery Pain control Tolerated low fiber diet Plan to discharge home today Will need colonoscopy as outpatient in 8 weeks Mood disorder Continue Wellbutrin ADHD Continue Adderall Hypothyroidism Continue levothyroxine HLD Resume statin Code status: FULL CODE Total Time Total Time Spent Total Time Spent (In Minutes): 55 minutes Discharge Plan Discharge Items Patient Disposition: Home - Self-Care Reason For Visit: DIVERTICULITIS Discharge Diagnosis: Sepsis Diverticulitis with intramural abscess at hepatic flexure Activity: Per Instructions section Exercise/Sports: Gradually increase as tolerated Non-emergency contact: Primary Care Provider and Surgeon Call non-emergency contact if: you have any medication questions, your symptoms worsen, your pain is concerning for you and you have a fever Follow-up/Referrals: Ricki Doshi, [Primary Care Provider] - (Date & Time 12/11/2024 10:00 AM Provider: Mariya Mario CRNP [facility] ) Diet: Low Fiber Addtl Attending Provider Instructions: Continue a low fiber diet for the next 6-8 weeks. 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 Doshi in 1 week Follow-up with your surgeon as needed Follow-up with your comb capper for colonoscopy in 6 to 8 weeks --Complete the antibiotic course Augmentin as prescribed. --Your blood cultures are pending at the time of discharge. Follow-up with your physician for results. Seek immediate medical attention if your symptoms reoccur or worsen Please take all medications as instructed on discharge list below. Please call if you have any questions or problems. You can reach a [facility] hospitalist on duty at [facility] 24 hours a day by calling [phone] Pending Studies at Discharge: Yes Studies:: Final blood cultures Stand-Alone Forms: My [facility] [employer], Smoking Cessation Medications and DC Order Prescriptions: New oxycodone 5 mg Tablet 5 mg PO Q8H PRN (Reason: pain) Qty: 14 0RF Advanced Probiotic 625 mg (10 billion cell) Capsule 1 cap PO DAILY Qty: 30 0RF amoxicillin-pot clavulanate 875-125 mg tablet 1 tab PO BID Qty: 28 0RF Continued Excedrin Extra Strength 250-250-65 mg tablet 1 tab PO Q6H PRN (Reason: Migraine Headache) Rx Instructions: Unable to verify OTC meds at this date/time. himefquu-yitzslusciu-sadu cb25 116-100 mg capsule 1 cap PO DAILY Rx Instructions: Unable to verify OTC meds at this date/time. turmeric 400 mg Capsule 400 mg PO DAILY Qty: 0 Rx Instructions: Unable to verify OTC meds at this date/time. cholecalciferol (vitamin D3) [Vitamin D3] 25 mcg (1,000 unit) Tablet 25 mcg PO DAILY 30 Days Qty: 0 Rx Instructions: Unable to verify OTC meds at this date/time. atorvastatin 20 mg tablet 20 mg PO QAM levothyroxine 25 mcg tablet 25 mcg PO DAILYBB dextroamphetamine-amphetamine 5 mg capsule,extended release 24hr 10 mg PO QAM bupropion HCl 300 mg tablet extended release 24 hr 300 mg PO QAM Discharge Orders: Discharge Order (Routine); Ordered 12/08/24 Ordered By: Ciaran Lala/Other Patient Handouts: Low-Fiber Diet Admission Data Admit Date/Time: 12/04/24 15:13 Attending Provider: Ciaran Whelan Admit Provider: Harshad Roque Primary Care Provider: Ricki Doshi Other Providers: Misha Stevens
[2024-12-08 11:32] VITALS: PULSE 84
[2024-12-09] MEDS ORDERED: ADVANCED PROBIOTIC 625 MG CAPSULE PO SCH (09:00)
== END 2024-12-08 14:17 | disposition home or self-care (01) | DRG 872 ==
LOC: ED 10:21 → EDINP 15:13 → SUATTDRO 15:13 → 2W 17:14